=== PATIENT | male | born 1970 | race Caucasian/White ===

== ENCOUNTER 2020-03-04 16:56 | Inpatient (IN) ==
[2020-03-04] MEDS ORDERED: 0.9 % SODIUM CHLORIDE 1,000 ML IV ONE (17:39)
--- NOTE | 2020-03-04 17:53 | Emergency Department Note ---
HPI General Chief complaint: Weakness Stated complaint: weakness, nausea Time Seen by Provider: 03/04/20 17:25 Source: patient Mode of arrival: ambulatory Limitations: no limitations History of Present Illness HPI Narrative: Narrative: 49-year-old male patient presents to the emergency department chief complaint of decreased appetite, nausea, vomiting, generalized weakness 1.5 weeks. Patient expressed to me "I do not think my thyroid meds are working right". Patient is rather medically complex and was seeing a provider in [place] prior to coming up to our area in July of this year. He has no plans of returning. He has not seen a provider in some time. Patient has not had blood work done in quite some time. She does mention a history of both thyroidism and currently does take 200 mg of levothyroxine daily. Patient did not take his blood sugar this morning. However yesterday he tells me that the number was over 250. He has had a 38 pound weight loss since June that was unintentional. ROS: Admits to chills. Denies headaches, tinnitus, or vision changes. Denies runny nose, sinus congestion, or cough. Admits to mild shortness of breath. Admits to smoking up to 1 pack every 2 days since the age of 75 years old Denies retrosternal chest pain or palpitations. Denies abdominal pain, diarrhea, or constipation. Admits to nausea and vomiting x3 today. He mentions the nausea is worse in the morning. He is able to eat more normal meal by dinnertime. Denies dysuria, hematuria, urinary frequency, or urinary urgency. Related Data Home Medications Medication Instructions Recorded Confirmed aspirin 81 mg PO QDAY 03/04/20 03/04/20 atorvastatin 80 mg PO QDAY 03/04/20 03/04/20 cholecalciferol (vitamin D3) 50 mcg PO QDAY 03/04/20 03/04/20 [Vitamin D3] clopidogrel [Plavix] 75 mg PO QDAY 03/04/20 03/04/20 fludrocortisone 0.2 mg PO QDAY 03/04/20 03/04/20 gabapentin 400 mg PO TID 03/04/20 03/04/20 levothyroxine 200 mcg PO QDAY 03/04/20 03/04/20 midodrine 10 mg PO TID 03/04/20 03/04/20 potassium chloride 10 meq PO QDAY 03/04/20 03/04/20 Allergies Allergy/AdvReac Type Severity Reaction Status Date / Time phenytoin [From Dilantin] Allergy Severe Other Verified 03/04/20 17:01 Review of Systems ROS ROS Narrative: Narrative: All systems ED: reviewed and negative except as stated. [facility] Narrative Patient History Narrative: Narrative: Medical/Surgical/Family History All Active Problems (Updated 03/04/20 @ 22:11 by Alexandre Henao PA-C) DKA (diabetic ketoacidoses) (Acute) Anemia (Acute) Hypothyroidism (Acute) Hypotension (Acute) Type 2 diabetes mellitus (Acute) Medical History CVA (cerebral vascular accident) (Acute ~11/2018) Hypotension (Acute) Myocardial infarction (Acute ~04/2018) Type 2 diabetes mellitus (Acute) Currently takes Humalog 70/30 insulin, 50 units twice daily. Unresponsive episode (Acute ~12/2018) Social History Smoking Status: Current every day smoker (Has been smoking since 5 years old.) Exam Narrative Narrative: Narrative: General Limitations: no limitations General appearance: Present other (Well-developed, thin, chronically ill- appearing 49-year-old male patient laying semirecumbent on the emergency room gurney in no acute respiratory distress. He is speaking in complete sentences. No nasal flaring. No accessory muscle use.) Head Head: Present normocephalic Eye Eye: Present normal appearance, PERRL and EOMI; Absent scleral icterus and conjunctival injection ENT ENT: Present normal oropharynx and mucous membranes moist Neck Neck: Present trachea midline; Absent lymphadenopathy and thyromegaly Chest Chest: Present symmetric chest wall rise Respiratory Respiratory: Present prolonged expiratory phase and decreased breath sounds (Decreased breath sounds heard throughout the chest. No adventitious wheezing or rhonchi heard.); Absent normal lung sounds bilaterally, respiratory distress, rales/crackles, wheezes, stridor and accessory muscle use Cardiovascular Cardiovascular: Present regular rate and normal rhythm; Absent systolic murmur and diastolic murmur Adbominal Abdominal: Present soft and normal bowel sounds; Absent distention, tenderness, guarding, rebound, rigidity, organomegaly and mass Extremities Extremities: Present normal inspection and full ROM; Absent normal capillary refill (Less than 3 seconds.) and pedal edema Back Back: Present normal inspection and full ROM; Absent CVA tenderness (R) and CVA tenderness (L) Neurological Neurological: Present alert, oriented X3, CN II-XII intact, normal gait and reflexes normal; Absent motor sensory deficit Psychiatric Psychiatric: Present normal affect and normal mood Skin Skin: Present warm (WNL), dry and normal color Course Course Course Narrative: The differential diagnosis of acute weakness in the adult patient is rather extensive and can be broken down into the following categories : Life-threatening central causes of unilateral weakness: Ischemic stroke, intracerebral hemorrhage, subarachnoid hemorrhage. Other life-threatening causes of bilateral weakness: Brainstem stroke, spinal cord diseases, peripheral nerve diseases (Guillain-Briscoe syndrome), myasthenia gravis, botulism, alcoholic myopathy. Life-threatening medical causes: Hypoglycemia and electrolyte disorders (pot assium, calcium, and magnesium). Life-threatening causes of generalized weakness: Sepsis, ACS, CO2 poisoning, adrenal insufficiency. Other neurologic causes: Multiple sclerosis, hemiplegic migraine, and postictal paralysis. Other medical causes of generalized weakness: Hypothyroidism, infections, anemia, dehydration, presyncope, multiple medications (beta-blockers, diuretics, chemotherapy, opioids, and alcohol), and rheumatologic diseases. Patient is rather medically complex and is not been followed by a medical provider in some time. He is in the emergency department now with a vague com plaint of nausea vomiting and weakness. He is afebrile but mildly tachycardic at 103 heart rate. His blood pressures 108/79. His SPO2 is 99% on room air. He is not septic appearing nor does he meet SIRS criteria. We are going to order some screening laboratory studies including a TSH and a beta hydroxybutyrate. I am going to provide him normal saline 1000 mL as a bolus. Reevaluation(s) Reevaluation #1: Review of his diagnostics thus far show CBC WBC 2.3, RBC 2.18, hemoglobin 7.4, hematocrit 22.7, MCV 104.1, platelets 143. Lactic acid 0.7. Beta hydroxybutyrate 5.55. TSH 7.53. Procalcitonin 0.02. UA pending. C hemistry panel pending. Two-view chest x-ray no acute pulmonary infiltrates. Time: 21:00 Reevaluation #2: Chemistry panel sodium 131, CO2 8, creatinine 0.5, glucose 260, all others normal limits. Urinalysis pending. At this time it is now at shift change and have given full patient reports my collaborative physician (Dr. Nuno medrano). This time the plan is to admit the patient to the hospital for DKA and its associated complications. All further treatment decisions, modalities and ultimate patient disposition will be carried out by Dr. Renee. Time: 22:09 Vital Signs Vital signs: Vital Signs Pulse Rate 103 H 03/04/20 16:57 Respiratory Rate 18 03/04/20 16:57 Blood Pressure 108/79 03/04/20 16:57 Pulse Oximetry (%) 99 03/04/20 16:57 Pulse Rate 79 03/04/20 20:47 Respiratory Rate 16 03/04/20 20:47 Blood Pressure 119/76 03/04/20 20:46 Pulse Oximetry (%) 100 03/04/20 20:47 MDM MDM Narrative Medical decision making narrative: Narrative: Lab Data Lab results reviewed: Yes I reviewed the patient's lab results. Result diagrams: 03/04/20 19:00 03/04/20 19:00 Labs: Lab Results 03/04/20 03/04/20 03/04/20 Range/Units 19:00 19:00 19:00 WBC 2.3 L (4.5-11.0) K/mcL RBC 2.18 L (4.50-5.90) M/mcL Hgb 7.4 L (13.5-16.5) g/dL Hct 22.7 L (41.0-55.0) % MCV 104.1 H (80.0-100.0) fL MCH 33.9 (26.0-34.0) pg MCHC 32.6 (31.0-36.0) g/dL RDW 12.9 (11.5-14.5) % Plt Count 143 (140-440) K/mcL MPV 9.7 (7.4-10.4) fL Neut % (Auto) 57.1 (38.0-78.0) % Lymph % (Auto) 27.7 (15.0-49.0) % [place] % (Auto) 13.0 H (1.0-12.0) % Eos % (Auto) 1.3 (0.0-7.0) % Baso % (Auto) 0.9 (0.0-2.0) % Lymph # (Auto) 0.64 L (1.50-4.80) K/mcL [place] # (Auto) 0.30 (0.10-0.90) K/mcL Eos # (Auto) 0.03 (0.00-0.70) K/mcL Baso # (Auto) 0.02 (0.00-0.20) K/mcL Absolute Neutrophils 1.32 L (1.80-8.00) K/mcL VBG Lactic Acid 0.7 (0.5-2.0) mmol/L Beta-Hydroxybutyrate 5.55 H (<0.27) mmol/L Procalcitonin (<0.10) ng/mL TSH 7.53 H (0.27-5.01) uIU/mL 03/04/20 Range/Units 19:00 WBC (4.5-11.0) K/mcL RBC (4.50-5.90) M/mcL Hgb (13.5-16.5) g/dL Hct (41.0-55.0) % MCV (80.0-100.0) fL MCH (26.0-34.0) pg MCHC (31.0-36.0) g/dL RDW (11.5-14.5) % Plt Count (140-440) K/mcL MPV (7.4-10.4) fL Neut % (Auto) (38.0-78.0) % Lymph % (Auto) (15.0-49.0) % [place] % (Auto) (1.0-12.0) % Eos % (Auto) (0.0-7.0) % Baso % (Auto) (0.0-2.0) % Lymph # (Auto) (1.50-4.80) K/mcL [place] # (Auto) (0.10-0.90) K/mcL Eos # (Auto) (0.00-0.70) K/mcL Baso # (Auto) (0.00-0.20) K/mcL Absolute Neutrophils (1.80-8.00) K/mcL VBG Lactic Acid (0.5-2.0) mmol/L Beta-Hydroxybutyrate (<0.27) mmol/L Procalcitonin 0.02 (<0.10) ng/mL TSH (0.27-5.01) uIU/mL Radiology Data Radiology results reviewed: Yes I reviewed the patient's radiology results. Radiology results narrative: 2 view chest x-ray showing no acute pulmonary infiltrates. This will be over read by radiologist next 12-24 hours. EKG Data EKG #1: EKG results narrative: Lead EKG obtained showing sinus rhythm at a rate of 89. Normal intervals. No ectopy. There is early repolarization pattern noted. Discharge Plan Patient/Caregiver Discharge Instructions Pt seen by HORTICULTURE TEACHER/PA only: Yes Clinical Impression: DKA (diabetic ketoacidoses), Anemia, Hypothyroidism Patient Disposition: Still a Patient Condition: Fair Follow up with: No,PCP [Primary Care Provider] - Prescriptions: No Action atorvastatin 80 mg Tablet 80 mg PO QDAY RF: 0 potassium chloride 10 mEq Capsule, Extended Release 10 meq PO QDAY RF: 0 gabapentin 400 mg Capsule 400 mg PO TID RF: 0 clopidogrel [Plavix] 75 mg Tablet 75 mg PO QDAY RF: 0 aspirin 81 mg Tablet,Delayed Release (Dr/Ec) 81 mg PO QDAY RF: 0 fludrocortisone 0.1 mg Tablet 0.2 mg PO QDAY RF: 0 midodrine 10 mg Tablet 10 mg PO TID RF: 0 cholecalciferol (vitamin D3) [Vitamin D3] 50 mcg (2,000 unit) Capsule 50 mcg PO QDAY RF: 0 levothyroxine 200 mcg Capsule 200 mcg PO QDAY RF: 0
[2020-03-04 20:04] LABS: Basophils # (Auto) 0.02 K/mcL (0.00-0.20); Basophils % (Auto) 0.9 % (0.0-2.0); Eosinophils # (Auto) 0.03 K/mcL (0.00-0.70); Eosinophils % (Auto) 1.3 % (0.0-7.0); Hematocrit 22.7 % (41.0-55.0); Hemoglobin 7.4 g/dL (13.5-16.5); Lymphocytes # (Auto) 0.64 K/mcL (1.50-4.80); Lymphocytes % (Auto) 27.7 % (15.0-49.0); Mean Cell Volume 104.1 fL (80.0-100.0); Mean Corpuscular HGB Conc 32.6 g/dL (31.0-36.0); Mean Platelet Volume 9.7 fL (7.4-10.4); Neutrophils % (Auto) 57.1 % (38.0-78.0); Platelet Count 143 K/mcL (140-440); RBC 2.18 M/mcL (4.50-5.90); Red Cell Distribution Width 12.9 % (11.5-14.5); WBC 2.3 K/mcL (4.5-11.0)
[2020-03-04 20:36] LABS: Beta Hydroxybutyrate 5.55 mmol/L (<0.27)
[2020-03-04 20:42] LABS: Thyroid Stimulating Hormone 7.53 uIU/mL (0.27-5.01)
[2020-03-04 21:24] LABS: POC Blood Urea Nitrogen 17 mg/dL (6-20); POC CO2 8 mmol/L (22-30); POC Calcium, Ionized 1.17 mmEq/L (1.16-1.32); POC Chloride 106 mEq/L (96-108); POC Creatinine 0.5 mg/dL (0.6-1.2); POC Glucose, Random 360 mg/dL (70-105); POC Hematocrit 45 % (41-55); POC Potassium 4.5 mEql/L (3.3-5.1); POC Sodium 131 mEq/L (133-145)
[2020-03-04] MEDS ORDERED: INSULIN REGULAR, HUMAN 1 UNIT/0.01 ML UNIT SQ ONE (21:35)
[2020-03-04] MEDS ORDERED: INSULIN REGULAR, HUMAN 50 UNIT in 0.9 % SODIUM CHLORIDE 99.5 ML IV SCH (21:45)
[2020-03-04] MEDS ORDERED: INSULIN REGULAR, HUMAN 1 UNIT/0.01 ML UNIT ONE (21:52)
--- NOTE | 2020-03-04 22:22 | Internal Med History&Physical ---
HPI History of Present Illness Patient information: Note initiated : 03/04/20 at 10:21 pm Service Date, if different from initiated Date: [] Patient: Clovis Ureña a 49 y/o M admitted on for weakness, nausea. Chief Complaint: [] History of present illness: Mr. Ureña is a 49 year old M with a known history of diabetes/recurrent DKA/CAD/HTN and neuropathy who presented to the ER with increasing weakness, tremors, weight loss, fatigue and lack of appetite. Patient also complains of polyuria and polydipsia. He endorses his blood sugars has not been in good control as he has not been able to establish with a primary care physician. He last seen a physician at [place] however after he moved to [facility] in July he has not been able to return to [place] due to COVID-19. He currently lives with his mother. Initial evaluation in the ER work-up was consistent with DKA with a pH of 7.17/bicarb 8 and elevated blood sugar/ketones. Patient was promptly started on insulin drip along with crystalloids. Subsequently hospitalist service was consulted At the time of my evaluation patient is alert but very anxious fidgety. He was able to endorse history as above. Denies bloody stool, fever, recent sick contacts, cough or dysuria. is also concerned about his thyroid status and feels that DKA was precipitated once his thyroid starts acting up. Work-up today revealed TSH 7.53 review of systems A 10 point review system was performed and is negative except for ones discussed above PFSH PFSH All Active Problems (Updated 03/04/20 @ 22:11 by Alexandre Henao PA-C) DKA (diabetic ketoacidoses) (Acute) Anemia (Acute) Hypothyroidism (Acute) Hypotension (Acute) Type 2 diabetes mellitus (Acute) Medical History CVA (cerebral vascular accident) (Acute ~11/2018) Hypotension (Acute) Myocardial infarction (Acute ~04/2018) Type 2 diabetes mellitus (Acute) Currently takes Humalog 70/30 insulin, 50 units twice daily. Unresponsive episode (Acute ~12/2018) Social History smoking status: Current every day smoker MEDS/ALLERGIES Home Medications and Allergies Home Medications Medication Instructions Recorded Confirmed Type aspirin 81 mg PO QDAY 03/04/20 03/05/20 History atorvastatin 80 mg PO QDAY 03/04/20 03/05/20 History cholecalciferol (vitamin D3) 50 mcg PO QDAY 03/04/20 03/05/20 History [Vitamin D3] clopidogrel [Plavix] 75 mg PO QDAY 03/04/20 03/05/20 History fludrocortisone 0.2 mg PO QDAY 03/04/20 03/05/20 History gabapentin 400 mg PO BID 03/04/20 03/05/20 History levothyroxine 200 mcg PO QDAY 03/04/20 03/05/20 History midodrine 10 mg PO TID 03/04/20 03/05/20 History potassium chloride 10 meq PO QDAY 03/04/20 03/05/20 History blood-glucose meter [Blood Glucose 03/05/20 03/05/20 History Monitoring] gabapentin 800 mg PO QHS 03/05/20 03/05/20 History insulin NPH and regular human 50 unit SUBCUT BID 03/05/20 03/05/20 History [Humulin 70/30 U-100 Insulin] Allergies Allergy/AdvReac Type Severity Reaction Status Date / Time phenytoin [From Dilantin] AdvReac Severe Unresponsiv Verified 03/05/20 07:25 e EXAM Constitutional Vitals: Pulse Resp BP Pulse Ox 85 19 104/72 100 03/04/20 21:28 03/04/20 21:28 03/04/20 21:28 03/04/20 21:28 Very anxious fidgety Thin individual with BMI of 17 Head normocephalic Oral cavity moist No ear nose discharge Eye movement symmetrical without nystagmus Neck supple no lymphadenopathy S1-S2 tachycardia Nonlabored breathing Scaphoid nondistended nontender abdomen Lower extremity no cyanosis clubbing or joint swelling Skin no suspicious lesion Psych anxious but alert cooperative Neuro normal higher function DATA Data Completed and Pending Labs: Labs from last 24 hours 03/04/20 03/04/20 03/04/20 21:00 19:54 19:00 WBC RBC Hgb Hct POC Hct 45 MCV MCH MCHC RDW Plt Count MPV Neut % (Auto) Lymph % (Auto) [place] % (Auto) Eos % (Auto) Baso % (Auto) Lymph # (Auto) [place] # (Auto) Eos # (Auto) Baso # (Auto) Absolute Neutrophils VBG Lactic Acid POC Sodium 131 L Sodium POC Potassium 4.5 Potassium POC Chloride 106 Chloride Carbon Dioxide POC Total CO2 8 L* Anion Gap POC BUN 17 BUN Creatinine POC Creatinine 0.5 L GFR Calculation Glucose POC Glucose 360 H Calcium POC WB Ioniz Calcium 1.17 Total Bilirubin AST ALT Alkaline Phosphatase Total Protein Albumin Globulin Albumin/Globulin Ratio Beta-Hydroxybutyrate Procalcitonin 0.02 TSH Urine Color Pending Urine Appearance Pending Urine pH Pending Ur Specific [place] Pending Urine Protein Pending Urine Glucose (UA) Pending Urine Ketones Pending Urine Occult Blood Pending Urine Nitrate Pending Urine Bilirubin Pending Urine Urobilinogen Pending Ur Leukocyte Esterase Pending 03/04/20 03/04/20 03/04/20 19:00 19:00 19:00 WBC 2.3 L RBC 2.18 L Hgb 7.4 L Hct 22.7 L POC Hct MCV 104.1 H MCH 33.9 MCHC 32.6 RDW 12.9 Plt Count 143 MPV 9.7 Neut % (Auto) 57.1 Lymph % (Auto) 27.7 [place] % (Auto) 13.0 H Eos % (Auto) 1.3 Baso % (Auto) 0.9 Lymph # (Auto) 0.64 L [place] # (Auto) 0.30 Eos # (Auto) 0.03 Baso # (Auto) 0.02 Absolute Neutrophils 1.32 L VBG Lactic Acid 0.7 POC Sodium Sodium POC Potassium Potassium POC Chloride Chloride Carbon Dioxide POC Total CO2 Anion Gap POC BUN BUN Creatinine POC Creatinine GFR Calculation Glucose POC Glucose Calcium POC WB Ioniz Calcium Total Bilirubin AST ALT Alkaline Phosphatase Total Protein Albumin Globulin Albumin/Globulin Ratio Beta-Hydroxybutyrate 5.55 H Procalcitonin TSH 7.53 H Urine Color Urine Appearance Urine pH Ur Specific [place] Urine Protein Urine Glucose (UA) Urine Ketones Urine Occult Blood Urine Nitrate Urine Bilirubin Urine Urobilinogen Ur Leukocyte Esterase 03/04/20 19:00 WBC RBC Hgb Hct POC Hct MCV MCH MCHC RDW Plt Count MPV Neut % (Auto) Lymph % (Auto) [place] % (Auto) Eos % (Auto) Baso % (Auto) Lymph # (Auto) [place] # (Auto) Eos # (Auto) Baso # (Auto) Absolute Neutrophils VBG Lactic Acid POC Sodium Sodium Pending POC Potassium Potassium Pending POC Chloride Chloride Pending Carbon Dioxide Pending POC Total CO2 Anion Gap Pending POC BUN BUN Pending Creatinine Pending POC Creatinine GFR Calculation Pending Glucose Pending POC Glucose Calcium Pending POC WB Ioniz Calcium Total Bilirubin Pending AST Pending ALT Pending Alkaline Phosphatase Pending Total Protein Pending Albumin Pending Globulin Pending Albumin/Globulin Ratio Pending Beta-Hydroxybutyrate Procalcitonin TSH Urine Color Urine Appearance Urine pH Ur Specific [place] Urine Protein Urine Glucose (UA) Urine Ketones Urine Occult Blood Urine Nitrate Urine Bilirubin Urine Urobilinogen Ur Leukocyte Esterase A/P Narrative A/P Narrative: * DKA-initiate management per protocol. Crystalloids/insulin drip/n.p.o./aggressive electrolyte management. Follow serial electrolytes/kandi ous pH * History of CAD on Plavix/statin/aspirin * History of adrenal insufficiency with hypotension currently on fluid cortisone/midodrine * Hypothyroidism on thyroxine * Neuropathy continue gabapentin * Generalized weight loss-nutrition support/work-up * Full code * prophylaxis heparin Plan * Inpatient ICU admission * DKA management protocol * Pre-existing medical condition management on home medications * PT OT/nutrition support * Discharge planning/outpatient PCP follow-up coordination critical care time spent on management of DKA in excess of 25 minutes in addition to time spent on history and physical Time Spent With Patient Time: Total time spent is greater than 50% in coordination of care (as documented) at patient's floor/unit and/or counseling patient:
[2020-03-04 22:30] LABS: Appearance,Urine CLEAR (Clear); Bilirubin,Urine Negative (Negative); Color,Urine YELLOW; Culture Indicated,Urine No; Glucose,Urine (UA) >=500 mg/dL (Negative); Ketones,Urine 80 mg/dL (Negative); Leukocyte Esterase,Urine Negative /ug (Negative); Mucus,Urine FEW /hpf; Nitrate,Urine Negative (Negative); Protein,Urine 100 mg/dL (Negative); Specific Gravity,Urine 1.028 (1.000-1.035); Urine Blood 0.03 mg/dL (Negative); Urine Hyaline Cast 13 /lph (0-2); Urine RBC < 1 /hpf (0-1); Urine Squamous Epithelial Cell 0 /hpf (0-4); Urine WBC < 1 /hpf (0-4); Urobilinogen,Urine Negative
[2020-03-04] MEDS ORDERED: ACETAMINOPHEN 650 MG/65 ML BOTTLE IV PRN (23:30)
[2020-03-04] MEDS ORDERED: ACETAMINOPHEN 325 MG TABLET PO PRN (23:30)
[2020-03-04] MEDS ORDERED: MELATONIN 3 MG TABLET PO PRN (23:30)
[2020-03-04] MEDS ORDERED: POTASSIUM CHLORIDE 40 MEQ in DEXTROSE 5% IN WATER 500 ML IV PRN (23:30)
[2020-03-04] MEDS ORDERED: POTASSIUM CHLORIDE 20 MEQ PACKET PO PRN (23:30)
[2020-03-04] MEDS ORDERED: MAGNESIUM SULFATE 2 GM/50 ML BAG IV PRN (23:30)
[2020-03-04] MEDS ORDERED: BISACODYL 10 MG SUPP.RECT PR PRN (23:30)
[2020-03-04] MEDS ORDERED: ONDANSETRON 4 MG/2 ML VIAL IV PRN (23:30)
[2020-03-04] MEDS ORDERED: ONDANSETRON 4 MG ODT TABLET SL PRN (23:30)
[2020-03-04] MEDS ORDERED: POLYETHYLENE GLYCOL 3350 17 GM PACKET PO PRN (23:30)
[2020-03-04] MEDS: DEXTROSE 5%-1/2NS 1,000 ML IV SCH (23:46)
[2020-03-05 00:45] LABS: ABG Methemoglobin 0.3 % (0.4-1.5); Total Hemoglobin 14.4 gm/Dl (13.5-16.5); VBG HCO3 11.3 mmol/L (24.0-28.0); VBG Oxygen Saturation 76.2 % (40.0-70.0); VBG PCO2 30.6 mmHg (41.0-51.0); VBG PH 7.19 U (7.32-7.42); VBG Total CO2 12.3 mmol/L (25.0-29.0)
--- NOTE | 2020-03-05 02:34 | XRay Report ---
CLINICAL INFORMATION: correction smoker, Mild SOB, N/V COMPARISON: None. FINDINGS: Heart size, mediastinum and pulmonary vessels are unremarkable. The lung volumes are elevated compatible with COPD. No infiltrates appreciated. Few small dense calcified granulomas in the perihilar regions. No effusions. Bones soft tissues normal IMPRESSION: COPD changes. No acute disease Interpreted and Authenticated by: Stefan Russo 03/05/20
[2020-03-05] MEDS ORDERED: INSULIN REGULAR, HUMAN 1 UNIT/0.01 ML UNIT ONE (03:15)
[2020-03-05] MEDS: INSULIN REGULAR, HUMAN 50 UNIT in 0.9 % SODIUM CHLORIDE 99.5 ML IV SCH ×2 (03:26→16:57)
[2020-03-05] MEDS: 0.9 % SODIUM CHLORIDE 10 ML SYRINGE IV SCH ×3 (05:05→20:58)
[2020-03-05] MEDS ORDERED: DEXTROSE 50% 50 ML VIAL IV PRN (05:56)
[2020-03-05 06:04] LABS: ABG Methemoglobin 0.3 % (0.4-1.5); Total Hemoglobin 12.7 gm/Dl (13.5-16.5); VBG HCO3 15.7 mmol/L (24.0-28.0); VBG PCO2 26.1 mmHg (41.0-51.0); VBG PH 7.4 U (7.32-7.42); VBG Total CO2 16.5 mmol/L (25.0-29.0)
[2020-03-05] MEDS ORDERED: DEXTROSE 50% 50 ML VIAL IV ONE (06:04)
[2020-03-05] MEDS: LEVOTHYROXINE 100 MCG TABLET PO SCH (07:49)
[2020-03-05 09:31] LABS: ABG Methemoglobin 0.3 % (0.4-1.5); Total Hemoglobin 12.3 gm/Dl (13.5-16.5); VBG HCO3 17.2 mmol/L (24.0-28.0); VBG PCO2 29.1 mmHg (41.0-51.0); VBG PH 7.39 U (7.32-7.42); VBG Total CO2 18.1 mmol/L (25.0-29.0)
[2020-03-05 09:31] LABS: Eosinophils % (Manual) 2 % (0-7); Hematocrit 36.2 % (41.0-55.0); Hemoglobin 13.4 g/dL (13.5-16.5); Lymphocytes % 34 % (15-49); Mean Cell Volume 90.7 fL (80.0-100.0); Mean Platelet Volume 10.1 fL (7.4-10.4); Monocytes % (Manual) 12 % (1-12); Platelet Count 297 K/mcL (140-440); Platelet Estimate NORMAL (Normal); RBC 3.99 M/mcL (4.50-5.90); RBC Morphology NORMAL (Normal); Red Cell Distribution Width 12.5 % (11.5-14.5); Segmented Neutrophils % 52 % (38-78); WBC 5.3 K/mcL (4.5-11.0)
--- NOTE | 2020-03-05 10:40 | Internal Med Progress Note ---
SUBJECTIVE Subjective Patient information: Note initiated : 03/05/20 at 10:36 am Service Date, if different from initiated Date: [] Patient: Clovis Ureña a 49 y/o M admitted on 03/04/20 for weakness, nausea. Chief Complaint: History of present illness: Mr. Ureña is a 49 year old M with a known history of diabetes/recurrent DKA/CAD/HTN and neuropathy who presented to the ER with increasing weakness, tremors, weight loss, fatigue and lack of appetite. Patient also complains of polyuria and polydipsia. He endorses his blood sugars has not been in good control as he has not been able to establish with a primary care physician. He last seen a physician at [place] however after he moved to [facility] in July he has not been able to return to [place] due to COVID-19. He currently lives with his mother. Initial evaluation in the ER work-up was consistent with DKA with a pH of 7. 17/bicarb 8 and elevated blood sugar/ketones. Patient was promptly started on insulin drip along with crystalloids. Subsequently hospitalist service was consulted At the time of my evaluation patient is alert but very anxious fidgety. He was able to endorse history as above. Denies bloody stool, fever, recent sick contacts, cough or dysuria. is also concerned about his thyroid status and fe els that DKA was precipitated once his thyroid starts acting up. Work-up today revealed TSH 7.53 03/05-patient doing well. pH normalized. Continue insulin drip. Improving anion gap. Remains NPO. Continue management per DKA protocol. Patient remains fairly anxious Constitutional Vitals: Vital Signs Temp Pulse Resp BP Pulse Ox 98.9 F 82 14 94/62 97 03/05/20 08:01 03/05/20 04:01 03/05/20 08:16 03/05/20 08:01 03/05/20 08:16 Period Temp Pulse Resp BP Sys/Hernandez Pulse Ox Last 24 Hr 97.9 F-98.9 F 73-112 14-22 79-139/54-92 95-100 Intake and Output 03/04/20 03/05/20 03/05/20 21:59 05:59 13:59 Intake Total 1000 94 Output Total 400 Balance 1000 -306 Weight 63.503 kg 65.408 kg Alert oriented Anxious Nonlabored breathing No telemetry events Intake & Output: Intake & Output 03/04/20 03/05/20 03/05/20 21:59 05:59 13:59 Intake Total 1000 94 Output Total 400 Balance 1000 -306 Weight 63.503 kg 65.408 kg Intake: IV 1000 94 Sodium Chloride 0.9% 1,000 ml @ 1000 Wide Open IV BOLUS ONE Rx#: [id number] HumuLIN R 50 UNIT In Sodium 94 Chloride 0.9% 99.5 ml @ 7 UNIT/ HR 14 mls/hr IV DUR SANTY Rx#: [id number] Output: Void Amount 400 Other: Urine Appearance Clear Urine Color Dark Yellow OBJ DATA Labs CBC & Chem 7: 03/05/20 03:30 03/05/20 03:30 Labs: Abnormal Lab Results 03/05/20 03/05/20 03/05/20 07:28 03:30 03:30 WBC RBC 3.99 L Hgb 13.4 L Hct 36.2 L MCV MCHC 37.0 H [place] % (Auto) Lymph # (Auto) Absolute Neutrophils ABG Methemoglobin 0.3 L 0.3 L VBG pH VBG pCO2 29.1 L 26.1 L VBG pO2 134 H 167 H VBG HCO3 17.2 L 15.7 L VBG Total CO2 18.1 L 16.5 L VBG O2 Saturation 94.0 H 92.0 H VBG Base Excess -7 L -8 L Carboxyhemoglobin 4.2 H 6.5 H Total Hemoglobin 12.3 L 12.7 L POC Sodium POC Total CO2 POC Creatinine POC Glucose Beta-Hydroxybutyrate TSH Urine Protein Urine Glucose (UA) Urine Ketones Hyaline Casts Urine Mucus 03/04/20 03/04/20 03/04/20 23:30 21:00 19:54 WBC RBC Hgb Hct MCV MCHC [place] % (Auto) Lymph # (Auto) Absolute Neutrophils ABG Methemoglobin 0.3 L VBG pH 7.19 L* VBG pCO2 30.6 L VBG pO2 47 H VBG HCO3 11.3 L VBG Total CO2 12.3 L VBG O2 Saturation 76.2 H VBG Base Excess -16 L Carboxyhemoglobin 5.4 H Total Hemoglobin POC Sodium 131 L POC Total CO2 8 L* POC Creatinine 0.5 L POC Glucose 360 H Beta-Hydroxybutyrate TSH Urine Protein 100 A Urine Glucose (UA) >=500 A Urine Ketones 80 A Hyaline Casts 13 H Urine Mucus Few A 03/04/20 03/04/20 19:00 19:00 WBC 2.3 L RBC 2.18 L Hgb 7.4 L Hct 22.7 L MCV 104.1 H MCHC [place] % (Auto) 13.0 H Lymph # (Auto) 0.64 L Absolute Neutrophils 1.32 L ABG Methemoglobin VBG pH VBG pCO2 VBG pO2 VBG HCO3 VBG Total CO2 VBG O2 Saturation VBG Base Excess Carboxyhemoglobin Total Hemoglobin POC Sodium POC Total CO2 POC Creatinine POC Glucose Beta-Hydroxybutyrate 5.55 H TSH 7.53 H Urine Protein Urine Glucose (UA) Urine Ketones Hyaline Casts Urine Mucus Meds: Medications Acetaminophen (Tylenol) 650 mg PO Q4-6HP PRN; Protocol PRN Reason: Per Pain Protocol/Fever > 101 Aspirin (Aspirin) 81 mg PO QDAY [facility] Atorvastatin Calcium (Lipitor) 80 mg PO QDAY [facility] Bisacodyl (Dulcolax) 10 mg [place] Q2-3DAYS PRN PRN Reason: Constipation Clopidogrel Bisulfate (Plavix) 75 mg PO QDAY [facility] Cyanocobalamin (Vitamin B-12) 1,000 mcg PO BID SANTY Stop: 03/09/20 21:01 Dextrose (Dextrose 50%) 25 ml IV PRN PRN PRN Reason: Hypoglycemia Diagnostic Test (Pha) (Accu-Chek) 1 each FS Q1 SANTY Last Admin: 03/05/20 08:00 Dose: 1 each Documented by: Docusate Sodium (Colace) 100 mg PO BID [facility] Fludrocortisone Acetate (Florinef) 0.2 mg PO QDAY [facility] Gabapentin (Neurontin) 400 mg PO TID [facility] Heparin Sodium (Porcine) (Heparin) 5,000 unit SQ Q12 SANTY Insulin Human Regular 50 unit/ (Sodium Chloride) 100 mls @ 14 mls/hr IV DUR SANTY; Protocol Last Titration: 03/05/20 05:53 Dose: 1 unit/hr, 2 mls/hr Documented by: Potassium Chloride 40 meq/ (Dextrose) 520 mls @ 130 mls/hr IV UD PRN PRN Reason: K+ = or < 3.5 Dextrose/Sodium Chloride (Dextrose 5%-1/2ns Iv Solution) 1,000 mls @ 100 mls/hr IV .Q10H SANTY Last Admin: 03/04/20 23:46 Dose: 100 mls/hr Documented by: Acetaminophen (Ofirmev) 650 mg in 65 mls @ 130 mls/hr IV Q6HP PRN; Protocol PRN Reason: Per Pain Protocol/Fever > 101 Magnesium Sulfate (Magnesium Sulfate) 2 gm in 50 mls @ 50 mls/hr IV UD PRN PRN Reason: MG = or < 1.7 Iron Carb/Multivit/[place]/Folic Acid (Multivitamin W/Minerals) 1 tab PO DAILY [facility] Levothyroxine Sodium (Synthroid) 200 mcg PO ACB [facility] Last Admin: 03/05/20 07:49 Dose: 200 mcg Documented by: Melatonin (Melatonin 3mg Tablet) 3 mg PO HSP PRN PRN Reason: Insomnia Midodrine (Midodrine Hcl) 10 mg PO TID@0800,1200,1700 [facility] Ondansetron HCl (Zofran Odt) 4 mg SL Q4-6HP PRN; Protocol PRN Reason: Nausea And Vomiting Ondansetron HCl (Zofran) 4 mg IV Q4-6HP PRN; Protocol PRN Reason: Nausea And Vomiting Pneumococcal Polyvalent Vaccine (Pneumovax 23) 0.5 ml IM .ONCE ONE Stop: 03/06/20 10:01 Polyethylene Glycol (Miralax) 17 gm PO DAILYP PRN PRN Reason: Constipation Potassium Chloride (Kdur) 10 meq PO QAMCC [facility] Potassium Chloride (Klor-Con) 40 meq PO DAILYP PRN PRN Reason: K+ < 3.5 Senna/Docusate Sodium (Senna Plus Tablet) 1 tab PO HS [facility] Sodium Chloride (Saline Flush) 10 ml IV Q8 [facility] Last Admin: 03/05/20 05:05 Dose: Not Given Documented by: Thiamine HCl (Vitamin B1) 100 mg PO DAILY [facility] ABG Interpretation ABG results: 03/04/20 03/05/20 03/05/20 23:30 03:30 07:28 ABG Methemoglobin 0.3 L 0.3 L 0.3 L VBG pH 7.19 L* 7.40 7.39 VBG pCO2 30.6 L 26.1 L 29.1 L VBG pO2 47 H 167 H 134 H VBG HCO3 11.3 L 15.7 L 17.2 L VBG Total CO2 12.3 L 16.5 L 18.1 L VBG O2 Saturation 76.2 H 92.0 H 94.0 H VBG Base Excess -16 L -8 L -7 L A/P Narrative A/P Narrative: * DKA-clinical improvement noted with continued management per protocol. On crystalloids/insulin drip/n.p.o./aggressive electrolyte management. * History of CAD continue on home dose Plavix/statin/aspirin * History of adrenal insufficiency with hypotension currently on fludr ocortisone/midodrine * Hypothyroidism on thyroxine * Neuropathy continue gabapentin * Generalized weight loss-nutrition support * Full code * prophylaxis heparin Plan * DKA management per protocol * Electrolyte replacement * PT OT/nutrition support * Pre-existing medical condition management home meds * Discharge planning/outpatient PCP follow-up coordination critical care time spent on management of DKA in excess of 35 minutes Time Spent With Patient Time: Total time spent is greater than 50% in coordination of care (as doc umented) at patient's floor/unit and/or counseling patient: QUALITY VTE Deep Vein Thrombosis/Pulmonary Embolism Present on Admission: No
[2020-03-05 10:47] LABS: POC Blood Urea Nitrogen 13 mg/dL (6-20); POC CO2 18 mmol/L (22-30); POC Calcium, Ionized 1.28 mmEq/L (1.16-1.32); POC Chloride 107 mEq/L (96-108); POC Creatinine 0.5 mg/dL (0.6-1.2); POC Glucose, Random 114 mg/dL (70-105); POC Hematocrit 37 % (41-55); POC Potassium 3.2 mEql/L (3.3-5.1); POC Sodium 137 mEq/L (133-145)
[2020-03-05] MEDS: MULTIVIT,THER IRON,CA,FA & MIN 1 TABLET PO SCH (12:05)
[2020-03-05] MEDS: HEPARIN 5,000 UNIT/ML VIAL SQ SCH ×2 (12:05→20:58)
[2020-03-05] MEDS: ATORVASTATIN 40 MG TABLET PO SCH (12:06)
[2020-03-05] MEDS: CYANOCOBALAMIN (VITAMIN B-12) 500 MCG TABLET PO SCH ×2 (12:06→20:58)
[2020-03-05] MEDS: FLUDROCORTISONE 0.1 MG TABLET PO SCH (12:06)
[2020-03-05] MEDS: POTASSIUM CHLORIDE 10 MEQ TABLET PO SCH (12:06)
[2020-03-05] MEDS: MIDODRINE 5 MG TABLET PO SCH ×3 (12:06→16:47)
[2020-03-05] MEDS: ASPIRIN 81 MG TAB.CHEW PO SCH (12:06)
[2020-03-05] MEDS: CLOPIDOGREL 75 MG TABLET PO SCH (12:07)
[2020-03-05] MEDS: THIAMINE 100 MG TABLET PO SCH (12:07)
[2020-03-05] MEDS: DOCUSATE SODIUM 100 MG CAPSULE PO SCH ×2 (12:09→20:58)
[2020-03-05] MEDS: GABAPENTIN 400 MG CAPSULE PO SCH ×3 (12:17→20:57)
[2020-03-05] MEDS: DEXTROSE 5%-1/2NS 1,000 ML IV SCH (12:18)
[2020-03-05 12:36] LABS: ALT/SGPT 15 U/L (<40); AST/SGOT 10 U/L (<40); Albumin 3.7 gm/dL (3.2-5.2); Albumin/Globulin Ratio 1.9 (1.0-2.3); Alkaline Phosphatase 60 U/L (39-117); Bilirubin,Direct < 0.2 mg/dL (<0.3); Bilirubin,Total 0.4 mg/dL (0.1-1.0); Blood Urea Nitrogen 11 mg/dL (6-20); Calcium 9.1 mg/dL (8.6-10.4); Carbon Dioxide 16 mmol/L (22-30); Chloride 107 mmol/L (96-108); Globulin 1.9 gm/dL (2.2-3.7); Glomerular Filtration Rate 98; Glucose 115 mg/dL (70-105); Lactate Dehydrogenase 110 U/L (135-225); Triglycerides 794 mg/dL (<150); Uric Acid 4.8 mg/dL (2.5-8.0)
[2020-03-05 12:39] LABS: Glucose 143 mg/dL (70-105)
[2020-03-05 12:42] LABS: ALT/SGPT 16 U/L (<40); AST/SGOT 8 U/L (<40); Albumin/Globulin Ratio 2.1 (1.0-2.3); Alkaline Phosphatase 66 U/L (39-117); Bilirubin,Direct 0.2 mg/dL (<0.3); Bilirubin,Total 0.3 mg/dL (0.1-1.0); Blood Urea Nitrogen 13 mg/dL (6-20); Calcium 8.6 mg/dL (8.6-10.4); Carbon Dioxide 13 mmol/L (22-30); Chloride 102 mmol/L (96-108); Globulin 1.9 gm/dL (2.2-3.7); Glomerular Filtration Rate 86; Lactate Dehydrogenase 129 U/L (135-225); Phosphorous 0.9 mg/dL (2.5-4.5); Uric Acid 5.6 mg/dL (2.5-8.0)
[2020-03-05 12:43] LABS: Triglycerides 1237 mg/dL (<150)
[2020-03-05] MEDS: 0.9 % SODIUM CHLORIDE 250 ML IV SCH (13:08)
[2020-03-05] MEDS ORDERED: SENNOSIDES/DOCUSATE SODIUM 1 TAB TABLET PO SCH (21:00)
[2020-03-05 21:57] LABS: ALT/SGPT < 5 U/L (<40); AST/SGOT < 5 U/L (<40); Albumin 4.1 gm/dL (3.2-5.2); Albumin/Globulin Ratio 2.2 (1.0-2.3); Alkaline Phosphatase 63 U/L (39-117); Bilirubin,Direct < 0.2 mg/dL (<0.3); Bilirubin,Total 0.3 mg/dL (0.1-1.0); Blood Urea Nitrogen 14 mg/dL (6-20); Calcium 9.1 mg/dL (8.6-10.4); Carbon Dioxide 13 mmol/L (22-30); Chloride 105 mmol/L (96-108); Globulin 1.9 gm/dL (2.2-3.7); Glomerular Filtration Rate 77; Glucose 149 mg/dL (70-105); Lactate Dehydrogenase 139 U/L (135-225); Phosphorous 0.9 mg/dL (2.5-4.5); Triglycerides 1549 mg/dL (<150)
[2020-03-06] MEDS: 0.9 % SODIUM CHLORIDE 250 ML IV SCH (00:28)
[2020-03-06] MEDS: INSULIN REGULAR, HUMAN 50 UNIT in 0.9 % SODIUM CHLORIDE 99.5 ML IV SCH (00:28)
[2020-03-06] MEDS: DEXTROSE 5%-1/2NS 1,000 ML IV SCH ×3 (02:06→13:04)
[2020-03-06] MEDS: 0.9 % SODIUM CHLORIDE 10 ML SYRINGE IV SCH ×3 (05:34→20:46)
--- NOTE | 2020-03-06 06:38 | XRay Report ---
CLINICAL INFORMATION: COPD COMPARISON: None. TECHNIQUE: Multiple FINDINGS: The heart size, mediastinum and pulmonary vessels are unremarkable. COPD changes again noted - lungs are clear. There are no effusions. The bones and soft tissues are within normal limits. IMPRESSION: Stable COPD - no acute disease. Interpreted and Authenticated by: Stefan Russo 03/06/20
[2020-03-06] MEDS: LEVOTHYROXINE 100 MCG TABLET PO SCH (07:14)
[2020-03-06] MEDS: HEPARIN 5,000 UNIT/ML VIAL SQ SCH (08:17)
[2020-03-06] MEDS: CYANOCOBALAMIN (VITAMIN B-12) 500 MCG TABLET PO SCH ×2 (08:18→20:48)
[2020-03-06] MEDS: MIDODRINE 5 MG TABLET PO SCH ×3 (08:18→17:06)
[2020-03-06] MEDS: ASPIRIN 81 MG TAB.CHEW PO SCH (08:18)
[2020-03-06] MEDS: POTASSIUM CHLORIDE 10 MEQ TABLET PO SCH (08:18)
[2020-03-06] MEDS: GABAPENTIN 400 MG CAPSULE PO SCH ×2 (08:18→14:41)
[2020-03-06] MEDS: FLUDROCORTISONE 0.1 MG TABLET PO SCH (08:18)
[2020-03-06] MEDS: DOCUSATE SODIUM 100 MG CAPSULE PO SCH ×2 (08:18→20:46)
[2020-03-06] MEDS: CLOPIDOGREL 75 MG TABLET PO SCH (08:18)
[2020-03-06] MEDS: MULTIVIT,THER IRON,CA,FA & MIN 1 TABLET PO SCH (08:18)
[2020-03-06] MEDS: THIAMINE 100 MG TABLET PO SCH (08:18)
[2020-03-06] MEDS: ATORVASTATIN 40 MG TABLET PO SCH (08:18)
[2020-03-06] MEDS ORDERED: INSULIN 70/30, HUMAN 1 UNIT/0.01 ML UNIT SQ SCH ×2 (09:17→17:00)
[2020-03-06] MEDS ORDERED: INSULIN, 75/25 NPL/LISPRO 1 UNIT/0.01 ML UNIT SQ SCH (09:19)
[2020-03-06] MEDS ORDERED: PNEUMOCOCCAL 23-VAL P-SAC VAC 0.5 ML SYRINGE IM ONE (10:00)
[2020-03-06 10:28] LABS: Eosinophils % (Manual) 6 % (0-7); Hematocrit 34.6 % (41.0-55.0); Hemoglobin 12.7 g/dL (13.5-16.5); Lymphocytes % 34 % (15-49); Mean Cell Volume 89.2 fL (80.0-100.0); Mean Corpuscular HGB Conc 36.7 g/dL (31.0-36.0); Mean Platelet Volume 10.2 fL (7.4-10.4); Monocytes % (Manual) 12 % (1-12); Platelet Count 252 K/mcL (140-440); Platelet Estimate NORMAL (Normal); RBC 3.88 M/mcL (4.50-5.90); RBC Morphology NORMAL (Normal); Red Cell Distribution Width 12.8 % (11.5-14.5); Segmented Neutrophils % 48 % (38-78); WBC 7.1 K/mcL (4.5-11.0)
[2020-03-06 10:29] LABS: ALT/SGPT 13 U/L (<40); AST/SGOT 17 U/L (<40); Albumin 3.5 gm/dL (3.2-5.2); Albumin/Globulin Ratio 2.1 (1.0-2.3); Alkaline Phosphatase 61 U/L (39-117); Bilirubin,Direct < 0.2 mg/dL (<0.3); Bilirubin,Total 0.3 mg/dL (0.1-1.0); Blood Urea Nitrogen 11 mg/dL (6-20); Carbon Dioxide 19 mmol/L (22-30); Chloride 105 mmol/L (96-108); Globulin 1.7 gm/dL (2.2-3.7); Glomerular Filtration Rate 103; Glucose 172 mg/dL (70-105); Lactate Dehydrogenase 133 U/L (135-225); Phosphorous 3.2 mg/dL (2.5-4.5); Triglycerides 362 mg/dL (<150); Uric Acid 3.3 mg/dL (2.5-8.0)
[2020-03-06 10:29] LABS: ALT/SGPT 13 U/L (<40); AST/SGOT 17 U/L (<40); Albumin 3.5 gm/dL (3.2-5.2); Albumin/Globulin Ratio 1.8 (1.0-2.3); Alkaline Phosphatase 68 U/L (39-117); Bilirubin,Direct < 0.2 mg/dL (<0.3); Bilirubin,Total 0.2 mg/dL (0.1-1.0); Blood Urea Nitrogen 12 mg/dL (6-20); Calcium 8.9 mg/dL (8.6-10.4); Carbon Dioxide 19 mmol/L (22-30); Chloride 102 mmol/L (96-108); Globulin 1.9 gm/dL (2.2-3.7); Glomerular Filtration Rate 103; Glucose 159 mg/dL (70-105); Lactate Dehydrogenase 114 U/L (135-225); Phosphorous 2.3 mg/dL (2.5-4.5); Triglycerides 624 mg/dL (<150); Uric Acid 3.7 mg/dL (2.5-8.0)
--- NOTE | 2020-03-06 11:19 | Internal Med Progress Note ---
SUBJECTIVE Subjective Patient information: Note initiated : 03/06/20 at 11:16 am Service Date, if different from initiated Date: [] Patient: Clovis Ureña a 49 y/o M admitted on 03/04/20 for weakness, nausea. Chief Complaint: History of present illness: Mr. Ureña is a 49 year old M with a known history of diabetes/recurrent DKA/CAD/HTN and neuropathy who presented to the ER with increasing weakness, tremors, weight loss, fatigue and lack of appetite. Patient also complains of polyuria and polydipsia. He endorses his blood sugars has not been in good control as he has not been able to establish with a primary care physician. He last seen a physician at [place] however after he moved to [facility] in July he has not been able to return to [place] due to COVID-19. He currently lives with his mother. Initial evaluation in the ER work-up was consistent with DKA with a pH of 7. 17/bicarb 8 and elevated blood sugar/ketones. Patient was promptly started on insulin drip along with crystalloids. Subsequently hospitalist service was consulted At the time of my evaluation patient is alert but very anxious fidgety. He was able to endorse history as above. Denies bloody stool, fever, recent sick contacts, cough or dysuria. is also concerned about his thyroid status and fe els that DKA was precipitated once his thyroid starts acting up. Work-up today revealed TSH 7.53 03/05-patient doing well. pH normalized. Continue insulin drip. Improving anion gap. Remains NPO. Continue management per DKA protocol. Patient remains fairly anxious 03/06-patient overnight on insulin drip at 1.5/h. Blood sugars much improved. Anion gap normalized. Bicarbonate at 19. Electrolytes stable. Transition to CC diet/7030 home dose insulin/Accu-Cheks. Transfer to medical floor. Possibly will discharge in 24 hours however will need outpatient close monitoring and follow-up with PCP which he has been able to do so in the last 6 months. Constitutional Vitals: Vital Signs Temp Pulse Resp BP Pulse Ox 99.2 F H 82 14 87/59 95 03/06/20 08:59 03/05/20 04:01 03/06/20 08:59 03/06/20 08:59 03/06/20 08:59 Period Temp Pulse Resp BP Sys/Hernandez Pulse Ox Last 24 Hr 97.0 F-99.2 F 03-15 80-128/42-75 94-99 Intake and Output 03/05/20 03/06/20 03/06/20 21:59 05:59 13:59 Intake Total 872 1635 880 Output Total 400 1000 Balance 472 635 880 Weight 69.309 kg alert oriented Anxious Nonlabored breathing Ambulating Intake & Output: Intake & Output 03/05/20 03/06/20 03/06/20 21:59 05:59 13:59 Intake Total 872 1635 880 Output Total 400 1000 Balance 472 635 880 Weight 69.309 kg Intake: IV 632 1275 640 Sodium Chloride 0.9% 250 ml @ 227 20 mls/hr IV .[id number] SANTY Rx#: [id number] Dextrose 5%-1/2Ns IV Solution 1 1000 628 ,000 ml @ 100 mls/hr IV .Q10H SANTY Rx#:[id number] HumuLIN R 50 UNIT In Sodium 112 48 12 Chloride 0.9% 99.5 ml @ 7 UNIT/ HR 14 mls/hr IV DUR SANTY Rx#: [id number] Potassium Chloride 40 Meq In 520 Dextrose 5% in Water 500 ml @ 130 mls/hr IV UD PRN Rx#: [id number] Oral 240 360 240 Output: Void Amount 400 1000 Other: Meal Snack Nourishment/Supplement Breakfast Percent of Meal Consumed 100% 100% 100% Feeding Ability Independent Independent Urine Appearance Clear Clear Clear Urine Color Dark Yellow Bright Yellow Bright Yellow OBJ DATA Labs CBC & Chem 7: 03/06/20 05:20 03/06/20 05:20 Labs: Abnormal Lab Results 03/06/20 03/06/20 03/05/20 05:20 05:20 23:00 WBC RBC 3.88 L Hgb 12.7 L Hct 34.6 L POC Hct MCV MCHC 36.7 H [place] % (Auto) Lymph # (Auto) Absolute Neutrophils ABG Methemoglobin VBG pH VBG pCO2 VBG pO2 VBG HCO3 VBG Total CO2 VBG O2 Saturation VBG Base Excess Carboxyhemoglobin Total Hemoglobin POC Sodium Sodium 131 L POC Potassium Carbon Dioxide 19 L 19 L POC Total CO2 Anion Gap POC Creatinine Glucose 172 H 159 H POC Glucose Phosphorus 2.3 L GGT 111 H 72 H Lactate Dehydrogenase 133 L 114 L Total Protein 5.2 L 5.4 L Globulin 1.7 L 1.9 L Triglycerides 362 H 624 H Beta-Hydroxybutyrate TSH Urine Protein Urine Glucose (UA) Urine Ketones Hyaline Casts Urine Mucus 03/05/20 03/05/20 03/05/20 14:27 10:30 10:30 WBC RBC Hgb Hct POC Hct 37 L MCV MCHC [place] % (Auto) Lymph # (Auto) Absolute Neutrophils ABG Methemoglobin VBG pH VBG pCO2 VBG pO2 VBG HCO3 VBG Total CO2 VBG O2 Saturation VBG Base Excess Carboxyhemoglobin Total Hemoglobin POC Sodium Sodium 130 L 132 L POC Potassium 3.2 L Carbon Dioxide 13 L 16 L POC Total CO2 18 L Anion Gap POC Creatinine 0.5 L Glucose 149 H 115 H POC Glucose 114 H Phosphorus 0.9 L 2.0 L GGT Lactate Dehydrogenase 110 L Total Protein 5.6 L Globulin 1.9 L 1.9 L Triglycerides 1549 H 794 H Beta-Hydroxybutyrate TSH Urine Protein Urine Glucose (UA) Urine Ketones Hyaline Casts Urine Mucus 03/05/20 03/05/20 03/05/20 07:28 03:30 03:30 WBC RBC 3.99 L Hgb 13.4 L Hct 36.2 L POC Hct MCV MCHC 37.0 H [place] % (Auto) Lymph # (Auto) Absolute Neutrophils ABG Methemoglobin 0.3 L VBG pH VBG pCO2 29.1 L VBG pO2 134 H VBG HCO3 17.2 L VBG Total CO2 18.1 L VBG O2 Saturation 94.0 H VBG Base Excess -7 L Carboxyhemoglobin 4.2 H Total Hemoglobin 12.3 L POC Sodium Sodium 132 L POC Potassium Carbon Dioxide 13 L POC Total CO2 Anion Gap 17.0 H POC Creatinine Glucose 143 H POC Glucose Phosphorus 0.9 L GGT Lactate Dehydrogenase 129 L Total Protein Globulin 1.9 L Triglycerides 1237 H Beta-Hydroxybutyrate TSH Urine Protein Urine Glucose (UA) Urine Ketones Hyaline Casts Urine Mucus 03/05/20 03/04/20 03/04/20 03:30 23:30 21:00 WBC RBC Hgb Hct POC Hct MCV MCHC [place] % (Auto) Lymph # (Auto) Absolute Neutrophils ABG Methemoglobin 0.3 L 0.3 L VBG pH 7.19 L* VBG pCO2 26.1 L 30.6 L VBG pO2 167 H 47 H VBG HCO3 15.7 L 11.3 L VBG Total CO2 16.5 L 12.3 L VBG O2 Saturation 92.0 H 76.2 H VBG Base Excess -8 L -16 L Carboxyhemoglobin 6.5 H 5.4 H Total Hemoglobin 12.7 L POC Sodium 131 L Sodium POC Potassium Carbon Dioxide POC Total CO2 8 L* Anion Gap POC Creatinine 0.5 L Glucose POC Glucose 360 H Phosphorus GGT Lactate Dehydrogenase Total Protein Globulin Triglycerides Beta-Hydroxybutyrate TSH Urine Protein Urine Glucose (UA) Urine Ketones Hyaline Casts Urine Mucus 03/04/20 03/04/20 03/04/20 19:54 19:00 19:00 WBC 2.3 L RBC 2.18 L Hgb 7.4 L Hct 22.7 L POC Hct MCV 104.1 H MCHC [place] % (Auto) 13.0 H Lymph # (Auto) 0.64 L Absolute Neutrophils 1.32 L ABG Methemoglobin VBG pH VBG pCO2 VBG pO2 VBG HCO3 VBG Total CO2 VBG O2 Saturation VBG Base Excess Carboxyhemoglobin Total Hemoglobin POC Sodium Sodium POC Potassium Carbon Dioxide POC Total CO2 Anion Gap POC Creatinine Glucose POC Glucose Phosphorus GGT Lactate Dehydrogenase Total Protein Globulin Triglycerides Beta-Hydroxybutyrate 5.55 H TSH 7.53 H Urine Protein 100 A Urine Glucose (UA) >=500 A Urine Ketones 80 A Hyaline Casts 13 H Urine Mucus Few A Meds: Medications Acetaminophen (Tylenol) 650 mg PO Q4-6HP PRN; Protocol PRN Reason: Per Pain Protocol/Fever > 101 Aspirin (Aspirin) 81 mg PO QDAY [facility] Last Admin: 03/06/20 08:18 Dose: 81 mg Documented by: Atorvastatin Calcium (Lipitor) 80 mg PO QDAY [facility] Last Admin: 03/06/20 08:18 Dose: 80 mg Documented by: Bisacodyl (Dulcolax) 10 mg [place] Q2-3DAYS PRN PRN Reason: Constipation Clopidogrel Bisulfate (Plavix) 75 mg PO QDAY [facility] Last Admin: 03/06/20 08:18 Dose: 75 mg Documented by: Cyanocobalamin (Vitamin B-12) 1,000 mcg PO BID [facility] Stop: 03/09/20 21:01 Last Admin: 03/06/20 08:18 Dose: 1,000 mcg Documented by: Dextrose (Dextrose 50%) 25 ml IV PRN PRN PRN Reason: Hypoglycemia Last Admin: 03/06/20 02:05 Dose: 25 ml Documented by: Diagnostic Test (Pha) (Accu-Chek) 1 each FS [facility] Docusate Sodium (Colace) 100 mg PO BID [facility] Last Admin: 03/06/20 08:18 Dose: Not Given Documented by: Fludrocortisone Acetate (Florinef) 0.2 mg PO QDAY [facility] Last Admin: 03/06/20 08:18 Dose: 0.2 mg Documented by: Gabapentin (Neurontin) 400 mg PO TID [facility] Last Admin: 03/06/20 08:18 Dose: 400 mg Documented by: Heparin Sodium (Porcine) (Heparin) 5,000 unit SQ Q12 [facility] Last Admin: 03/06/20 08:17 Dose: 5,000 unit Documented by: Potassium Chloride 40 meq/ (Dextrose) 520 mls @ 130 mls/hr IV UD PRN PRN Reason: K+ = or < 3.5 Last Infusion: 03/05/20 16:25 Dose: Infused Documented by: Dextrose/Sodium Chloride (Dextrose 5%-1/2ns Iv Solution) 1,000 mls @ 100 mls/hr IV .Q10H [facility] Last Admin: 03/06/20 08:23 Dose: 100 mls/hr Documented by: Acetaminophen (Ofirmev) 650 mg in 65 mls @ 130 mls/hr IV Q6HP PRN; Protocol PRN Reason: Per Pain Protocol/Fever > 101 Magnesium Sulfate (Magnesium Sulfate) 2 gm in 50 mls @ 50 mls/hr IV UD PRN PRN Reason: MG = or < 1.7 Last Infusion: 03/05/20 13:00 Dose: Infused Documented by: Insulin Human Lispro (Humalog) 0 unit SQ [facility]; Protocol Insulin Lispro Protam/Lispro Human (Humalog 75/25) 50 unit SQ BIDAC [facility] Last Admin: 03/06/20 09:59 Dose: 50 unit Documented by: Iron Carb/Multivit/[place]/Folic Acid (Multivitamin W/Minerals) 1 tab PO DAILY [facility] Last Admin: 03/06/20 08:18 Dose: 1 tab Documented by: Levothyroxine Sodium (Synthroid) 200 mcg PO ACB [facility] Last Admin: 03/06/20 07:14 Dose: 200 mcg Documented by: Melatonin (Melatonin 3mg Tablet) 3 mg PO HSP PRN PRN Reason: Insomnia Midodrine (Midodrine Hcl) 10 mg PO TID@0800,1200,1700 [facility] Last Admin: 03/06/20 08:18 Dose: 10 mg Documented by: Ondansetron HCl (Zofran Odt) 4 mg SL Q4-6HP PRN; Protocol PRN Reason: Nausea And Vomiting Ondansetron HCl (Zofran) 4 mg IV Q4-6HP PRN; Protocol PRN Reason: Nausea And Vomiting Polyethylene Glycol (Miralax) 17 gm PO DAILYP PRN PRN Reason: Constipation Potassium Chloride (Kdur) 10 meq PO QAC [facility] Last Admin: 03/06/20 08:18 Dose: 10 meq Documented by: Potassium Chloride (Klor-Con) 40 meq PO DAILYP PRN PRN Reason: K+ < 3.5 Senna/Docusate Sodium (Senna Plus Tablet) 1 tab PO HS [facility] Last Admin: 03/05/20 20:58 Dose: Not Given Documented by: Sodium Chloride (Saline Flush) 10 ml IV Q8 [facility] Last Admin: 03/06/20 05:34 Dose: Not Given Documented by: Thiamine HCl (Vitamin B1) 100 mg PO DAILY [facility] Last Admin: 03/06/20 08:18 Dose: 100 mg Documented by: ABG Interpretation ABG results: 03/04/20 03/05/20 03/05/20 23:30 03:30 07:28 ABG Methemoglobin 0.3 L 0.3 L 0.3 L VBG pH 7.19 L* 7.40 7.39 VBG pCO2 30.6 L 26.1 L 29.1 L VBG pO2 47 H 167 H 134 H VBG HCO3 11.3 L 15.7 L 17.2 L VBG Total CO2 12.3 L 16.5 L 18.1 L VBG O2 Saturation 76.2 H 92.0 H 94.0 H VBG Base Excess -16 L -8 L -7 L A/P Narrative A/P Narrative: * DKA-clinical improvement noted with continued management per protocol. Off insulin drip now transition to subcu insulin/CC diet. Continue diabetic educ ation. * Hypokalemia on replacement * History of CAD continue on home dose Plavix/statin/aspirin * History of adrenal insufficiency with hypotension currently on fludrocortisone/midodrine * Hypothyroidism on thyroxine * Neuropathy continue gabapentin * Generalized weight loss-nutrition support * Full code * prophylaxis heparin Plan * Transition to medical floor * CC diet/basal prandial insulin * PT OT/nutrition support * Pre-existing medical condition management home meds * Discharge planning/outpatient PCP follow-up coordination likely in 24 hours Time Spent With Patient Time: Total time spent is greater than 50% in coordination of care (as documented) at patient's floor/unit and/or counseling patient: QUALITY VTE Deep Vein Thrombosis/Pulmonary Embolism Present on Admission: No
[2020-03-06] MEDS ORDERED: ACETAMINOPHEN 650 MG/65 ML BOTTLE IV PRN (11:22)
[2020-03-06] MEDS ORDERED: BISACODYL 10 MG SUPP.RECT PR PRN (11:22)
[2020-03-06] MEDS ORDERED: ACETAMINOPHEN 325 MG TABLET PO PRN (11:22)
[2020-03-06] MEDS ORDERED: MELATONIN 3 MG TABLET PO PRN (11:22)
[2020-03-06] MEDS ORDERED: POTASSIUM CHLORIDE 40 MEQ in DEXTROSE 5% IN WATER 500 ML IV PRN (11:22)
[2020-03-06] MEDS ORDERED: ONDANSETRON 4 MG/2 ML VIAL IV PRN (11:22)
[2020-03-06] MEDS ORDERED: POLYETHYLENE GLYCOL 3350 17 GM PACKET PO PRN (11:22)
[2020-03-06] MEDS ORDERED: MAGNESIUM SULFATE 2 GM/50 ML BAG IV PRN (11:22)
[2020-03-06] MEDS ORDERED: DEXTROSE 5%-1/2NS 1,000 ML IV SCH (11:22)
[2020-03-06] MEDS ORDERED: POTASSIUM CHLORIDE 20 MEQ PACKET PO PRN (11:22)
[2020-03-06] MEDS ORDERED: DEXTROSE 50% 50 ML VIAL IV PRN (11:22)
[2020-03-06] MEDS ORDERED: ONDANSETRON 4 MG ODT TABLET SL PRN (11:22)
[2020-03-06] MEDS ORDERED: INSULIN LISPRO 1 UNIT/0.01 ML UNIT SQ SCH (11:30)
[2020-03-06] MEDS: INSULIN LISPRO 1 UNIT/0.01 ML UNIT SQ SCH ×3 (12:07→20:45)
[2020-03-06 16:30] LABS: ALT/SGPT 14 U/L (<40); AST/SGOT 20 U/L (<40); Albumin 3.4 gm/dL (3.2-5.2); Albumin/Globulin Ratio 1.6 (1.0-2.3); Alkaline Phosphatase 70 U/L (39-117); Bilirubin,Direct < 0.2 mg/dL (<0.3); Bilirubin,Total 0.2 mg/dL (0.1-1.0); Blood Urea Nitrogen 12 mg/dL (6-20); Calcium 9.2 mg/dL (8.6-10.4); Carbon Dioxide 20 mmol/L (22-30); Chloride 102 mmol/L (96-108); Globulin 2.1 gm/dL (2.2-3.7); Glomerular Filtration Rate 103; Glucose 354 mg/dL (70-105); Lactate Dehydrogenase 236 U/L (135-225); Phosphorous 3.8 mg/dL (2.5-4.5); Triglycerides 746 mg/dL (<150)
[2020-03-06] MEDS: INSULIN, 75/25 NPL/LISPRO 1 UNIT/0.01 ML UNIT SQ SCH (17:05)
[2020-03-06] MEDS ORDERED: SENNOSIDES/DOCUSATE SODIUM 1 TAB TABLET PO SCH (21:00)
[2020-03-06] MEDS ORDERED: HEPARIN 5,000 UNIT/ML VIAL SQ SCH (21:00)
[2020-03-06] MEDS ORDERED: GABAPENTIN 400 MG CAPSULE PO SCH (21:00)
[2020-03-07] MEDS ORDERED: LEVOTHYROXINE 100 MCG TABLET PO SCH (07:30)
[2020-03-07] MEDS: INSULIN LISPRO 1 UNIT/0.01 ML UNIT SQ SCH ×2 (07:35→11:54)
[2020-03-07] MEDS: 0.9 % SODIUM CHLORIDE 10 ML SYRINGE IV SCH (07:37)
[2020-03-07] MEDS ORDERED: POTASSIUM CHLORIDE 10 MEQ TABLET PO SCH (08:00)
[2020-03-07 08:02] LABS: ALT/SGPT 14 U/L (<40); AST/SGOT 14 U/L (<40); Albumin 3.3 gm/dL (3.2-5.2); Albumin/Globulin Ratio 1.9 (1.0-2.3); Alkaline Phosphatase 59 U/L (39-117); Bilirubin,Direct < 0.2 mg/dL (<0.3); Bilirubin,Total 0.3 mg/dL (0.1-1.0); Blood Urea Nitrogen 12 mg/dL (6-20); Calcium 9.1 mg/dL (8.6-10.4); Carbon Dioxide 25 mmol/L (22-30); Chloride 106 mmol/L (96-108); Globulin 1.7 gm/dL (2.2-3.7); Glomerular Filtration Rate 109; Glucose 123 mg/dL (70-105); Lactate Dehydrogenase 112 U/L (135-225); Triglycerides 360 mg/dL (<150); Uric Acid 2.5 mg/dL (2.5-8.0)
[2020-03-07] MEDS: INSULIN, 75/25 NPL/LISPRO 1 UNIT/0.01 ML UNIT SQ SCH (08:09)
[2020-03-07] MEDS: MIDODRINE 5 MG TABLET PO SCH ×2 (08:18→11:58)
[2020-03-07] MEDS: DOCUSATE SODIUM 100 MG CAPSULE PO SCH (08:19)
[2020-03-07 08:46] LABS: Eosinophils % (Manual) 4 % (0-7); Hemoglobin 10.9 g/dL (13.5-16.5); Lymphocytes % 49 % (15-49); Mean Cell Volume 90.6 fL (80.0-100.0); Mean Corpuscular HGB Conc 36.3 g/dL (31.0-36.0); Mean Platelet Volume 10.3 fL (7.4-10.4); Monocytes % (Manual) 9 % (1-12); Platelet Count 200 K/mcL (140-440); Platelet Estimate NORMAL (Normal); RBC 3.31 M/mcL (4.50-5.90); RBC Morphology NORMAL (Normal); Reactive Lymphocytes 3 % (0-2); Red Cell Distribution Width 13.2 % (11.5-14.5); Segmented Neutrophils % 35 % (38-78); WBC 4.8 K/mcL (4.5-11.0)
[2020-03-07] MEDS ORDERED: ATORVASTATIN 40 MG TABLET PO SCH (09:00)
[2020-03-07] MEDS ORDERED: FLUDROCORTISONE 0.1 MG TABLET PO SCH (09:00)
[2020-03-07] MEDS ORDERED: CLOPIDOGREL 75 MG TABLET PO SCH (09:00)
[2020-03-07] MEDS ORDERED: VITAMIN D3 1,000 UNIT TABLET PO SCH (09:00)
[2020-03-07] MEDS ORDERED: ASPIRIN 81 MG TAB.CHEW PO SCH (09:00)
[2020-03-07] MEDS ORDERED: MULTIVIT,THER IRON,CA,FA & MIN 1 TABLET PO SCH (09:00)
[2020-03-07] MEDS ORDERED: THIAMINE 100 MG TABLET PO SCH (09:00)
[2020-03-07] MEDS: GABAPENTIN 400 MG CAPSULE PO SCH (09:18)
[2020-03-07] MEDS: CYANOCOBALAMIN (VITAMIN B-12) 500 MCG TABLET PO SCH (09:19)
--- NOTE | 2020-03-07 10:32 | Discharge Summary ---
Discharge Provider Provider Patient information: Note initiated : 03/07/20 at 10:29 am Service Date, if different from initiated Date: [] Patient: Clovis Ureña 49 y/o M admitted on 03/04/20 for weakness, nausea. Chief Complaint: Discharge diagnosis * DKA-clinical improvement noted with continued management per protocol. Now transition to basal panel insulin/CC diet. Discharging advised to follow-up with primary care physician * Hypokalemia resolved with replacement * History of CAD managed on home dose Plavix/statin/aspirin * History of adrenal insufficiency with hypotension currently on fludrocortisone/midodrine. * Hypothyroidism on thyroxine * Neuropathy continue gabapentin * Generalized weight loss-nutrition support Brief hospital course History of present illness: Mr. Ureña is a 49 year old M with a known history of diabetes/recurrent DKA/CAD/HTN and neuropathy who presented to the ER with increasing weakness, tremors, weight loss, fatigue and lack of appetite. Patient also complains of polyuria and polydipsia. He endorses his blood sugars has not been in good control as he has not been able to establish with a primary care physician. He last seen a physician at [place] however after he moved to [facility] in July he has not been able to return to [place] due to COVID-19. He currently lives with his mother. Initial evaluation in the ER work-up was consistent with DKA with a pH of 7.17/bicarb 8 and elevated blood sugar/ketones. Patient was promptly started on insulin drip along with crystalloids. Subsequently hospitalist service was consulted At the time of my evaluation patient is alert but very anxious fidgety. He was able to endorse history as above. Denies bloody stool, fever, recent sick contacts, cough or dysuria. is also concerned about his thyroid status and feels that DKA was precipitated once his thyroid starts acting up. Work-up today revealed TSH 7.53 03/05-patient doing well. pH normalized. Continue insulin drip. Improving anion gap. Remains NPO. Continue management per DKA protocol. Patient remains fairly anxious 03/06-patient overnight on insulin drip at 1.5/h. Blood sugars much improved. Anion gap normalized. Bicarbonate at 19. Electrolytes stable. Transition to CC diet/7030 home dose insulin/Accu-Cheks. Transfer to medical floor. Possibly will discharge in 24 hours however will need outpatient close monitoring and follow-up with PCP which he has been able to do so in the last 6 months. 03/07-patient doing well. Blood sugars at goal. Discharging home with advised to continue follow-up with primary care physician as scheduled. Continue basal prandial insulin/CC diet. Date of admission: 03/04/20 23:22 Discharge date: 03/07/20 Primary care physician: PCP No Consults: 03/04/20 Consult to Physician [CONS] Stat Comment: Consulting Provider: Malcom Gray Reason For Exam: Physician to Consult Discharge Meds Discharge Medications Home Medications aspirin 81 mg PO QDAY 03/04/20 [History Confirmed 03/05/20 Last Taken 03/04/20 08:00] atorvastatin 80 mg PO QDAY 03/04/20 [History Confirmed 03/05/20 Last Taken 03/04/20 08:00] cholecalciferol (vitamin D3) [Vitamin D3] 50 mcg PO QDAY 03/04/20 [History Confirmed 03/05/20 Last Taken 03/04/20 08:00] clopidogrel [Plavix] 75 mg PO QDAY 03/04/20 [History Confirmed 03/05/20 Last Taken 03/04/20 08:00] fludrocortisone 0.2 mg PO QDAY 03/04/20 [History Confirmed 03/05/20 Last Taken 03/04/20 08:00] gabapentin 400 mg PO BID 03/04/20 [History Confirmed 03/05/20 Last Taken 03/04/20 12:00] levothyroxine 200 mcg PO QDAY 03/04/20 [History Confirmed 03/05/20 Last Taken 03/04/20 08:00] midodrine 10 mg PO TID 03/04/20 [History Confirmed 03/05/20 Last Taken 03/04/20 21:00] potassium chloride 10 meq PO QDAY 03/04/20 [History Confirmed 03/05/20 Last Taken 03/04/20] Humulin 70/30 U-100 Insulin 50 unit SUBCUT BID 03/05/20 [History Confirmed 03/05/20 Last Taken 03/04/20 20:00] blood-glucose meter [Blood Glucose Monitoring] 03/05/20 [History Confirmed 03/05/20 Last Taken Unknown] gabapentin 800 mg PO QHS 03/05/20 [History Confirmed 03/05/20 Last Taken 03/04/20 21:00] COURSE Hospital Course Hospital course: . Discharge diagnosis: . Time Spent with Patient Time attestation: Total time spent providing and/or coordinating discharge services: EXAM Constitutional Vitals: Temp Pulse Resp BP Pulse Ox 98.1 F 75 18 84/61 96 03/07/20 08:00 03/07/20 08:00 03/07/20 08:00 03/07/20 08:00 03/07/20 08:00 Discharge Data Data Completed and Pending Labs on day of discharge: Labs from last 24 hours 03/07/20 03/07/20 03/06/20 05:40 05:40 14:24 WBC 4.8 RBC 3.31 L Hgb 10.9 L Hct 30.0 L MCV 90.6 MCH 32.9 MCHC 36.3 H RDW 13.2 Plt Count 200 MPV 10.3 Seg Neutrophils % 35 L Band Neutrophils % Pending Lymphocytes % 49 Monocytes % (Manual) 9 Eosinophils % (Manual) 4 Reactive Lymphocytes 3 H Platelet Estimate Normal RBC Morphology Normal Sodium 141 134 Potassium 3.1 L 4.1 Chloride 106 102 Carbon Dioxide 25 20 L Anion Gap 10.0 12.0 BUN 12 12 Creatinine 0.7 0.8 GFR Calculation 109 103 Glucose 123 H 354 H Uric Acid 2.5 3.0 Calcium 9.1 9.2 Phosphorus 5.0 H 3.8 Magnesium 1.9 2.0 Total Bilirubin 0.3 0.2 Direct Bilirubin < 0.2 < 0.2 GGT 49 21 AST 14 20 ALT 14 14 Alkaline Phosphatase 59 70 Lactate Dehydrogenase 112 L 236 H Total Protein 5.0 L 5.5 L Albumin 3.3 3.4 Globulin 1.7 L 2.1 L Albumin/Globulin Ratio 1.9 1.6 Triglycerides 360 H 746 H 03/06/20 03/06/20 03/05/20 05:20 05:20 23:00 WBC 7.1 RBC 3.88 L Hgb 12.7 L Hct 34.6 L MCV 89.2 MCH 32.7 MCHC 36.7 H RDW 12.8 Plt Count 252 MPV 10.2 Seg Neutrophils % 48 Band Neutrophils % Lymphocytes % 34 Monocytes % (Manual) 12 Eosinophils % (Manual) 6 Reactive Lymphocytes Platelet Estimate Normal RBC Morphology Normal Sodium 135 131 L Potassium 3.3 3.5 Chloride 105 102 Carbon Dioxide 19 L 19 L Anion Gap 11.0 10.0 BUN 11 12 Creatinine 0.8 0.8 GFR Calculation 103 103 Glucose 172 H 159 H Uric Acid 3.3 3.7 Calcium 9.0 8.9 Phosphorus 3.2 2.3 L Magnesium 2.0 2.2 Total Bilirubin 0.3 0.2 Direct Bilirubin < 0.2 < 0.2 GGT 111 H 72 H AST 17 17 ALT 13 13 Alkaline Phosphatase 61 68 Lactate Dehydrogenase 133 L 114 L Total Protein 5.2 L 5.4 L Albumin 3.5 3.5 Globulin 1.7 L 1.9 L Albumin/Globulin Ratio 2.1 1.8 Triglycerides 362 H 624 H Discharge Plan Patient/Caregiver Discharge Instructions Activity: increase activity as tolerated Diet: Consistent Carbohydrate Activity Restrictions/Additional Instructions: Follow-up with PCP as scheduled Continue routine blood sugar checks/insulin dose adjustments CC diet Return to ER if worsening nausea vomiting Prescriptions: Continued atorvastatin 80 mg Tablet 80 mg PO QDAY RF: 0 potassium chloride 10 mEq Capsule, Extended Release 10 meq PO QDAY RF: 0 gabapentin 400 mg Capsule 400 mg PO BID RF: 0 clopidogrel [Plavix] 75 mg Tablet 75 mg PO QDAY RF: 0 aspirin 81 mg Tablet,Delayed Release (Dr/Ec) 81 mg PO QDAY RF: 0 fludrocortisone 0.1 mg Tablet 0.2 mg PO QDAY RF: 0 midodrine 10 mg Tablet 10 mg PO TID RF: 0 cholecalciferol (vitamin D3) [Vitamin D3] 50 mcg (2,000 unit) Capsule 50 mcg PO QDAY RF: 0 levothyroxine 200 mcg Capsule 200 mcg PO QDAY RF: 0 gabapentin 400 mg Capsule 800 mg PO QHS RF: 0 (DME) blood-glucose meter [Blood Glucose Monitoring] Kit MISCELLANEOUS RF: 0 Humulin 70/30 U-100 Insulin 100 unit/mL (70-30) Suspension 50 unit SUBCUT BID RF: 0 Follow Up Plan Follow up with: No,PCP [Primary Care Provider] - Patient Disposition: Home, Self-Care Prognosis: Fair Rehab Potential: Fair I certify that the patient requires SNF services: No Overall status at discharge: patient is back to baseline Discharge Orders: Discharge Order (Routine); Ordered 03/07/20 Ordered By: Malcom JACOME VTE Deep Vein Thrombosis/Pulmonary Embolism Present on Admission: No
--- NOTE | 2020-03-09 15:51 | Emergency Department Note ---
HPI General Chief complaint: Weakness Stated complaint: weakness, nausea Time Seen by Provider: 03/04/20 17:25 Source: patient Mode of arrival: ambulatory Limitations: no limitations History of Present Illness HPI Narrative: Narrative: 49-Year-old patient presenting to the emergency department the chief complaint of high blood sugar concern for possible DKA or HH NS. Exacerbating factors include feeling generally ill, ameliorating factors include nothing. Time course for this is acute progressive over the past few days. Patient with abnormal labs vital signs and has been in the emergency department for several hours. Assumed care when midlevel went off shift. Related Data Home Medications Medication Instructions Recorded Confirmed aspirin 81 mg PO QDAY 03/04/20 03/05/20 atorvastatin 80 mg PO QDAY 03/04/20 03/05/20 cholecalciferol (vitamin D3) 50 mcg PO QDAY 03/04/20 03/05/20 [Vitamin D3] clopidogrel [Plavix] 75 mg PO QDAY 03/04/20 03/05/20 fludrocortisone 0.2 mg PO QDAY 03/04/20 03/05/20 gabapentin 400 mg PO BID 03/04/20 03/05/20 levothyroxine 200 mcg PO QDAY 03/04/20 03/05/20 midodrine 10 mg PO TID 03/04/20 03/05/20 potassium chloride 10 meq PO QDAY 03/04/20 03/05/20 Humulin 70/30 U-100 Insulin 50 unit SUBCUT BID 03/05/20 03/05/20 blood-glucose meter [Blood Glucose 03/05/20 03/05/20 Monitoring] gabapentin 800 mg PO QHS 03/05/20 03/05/20 Allergies Allergy/AdvReac Type Severity Reaction Status Date / Time phenytoin [From Dilantin] AdvReac Severe Unresponsiv Verified 03/05/20 07:25 e Review of Systems ROS ROS Narrative: Narrative: All systems ED: reviewed and negative except as stated. PFSH Narrative Patient History Narrative: Narrative: Medical/Surgical/Family History All Active Problems (Updated 03/04/20 @ 22:11 by Alexandre Henao PA-C) DKA (diabetic ketoacidoses) (Acute) Anemia (Acute) Hypothyroidism (Acute) Hypotension (Acute) Type 2 diabetes mellitus (Acute) Medical History CVA (cerebral vascular accident) (Acute ~11/2018) Hypotension (Acute) Myocardial infarction (Acute ~04/2018) Type 2 diabetes mellitus (Acute) Currently takes Humalog 70/30 insulin, 50 units twice daily. Unresponsive episode (Acute ~12/2018) Social History Smoking Status: Current every day smoker Exam Narrative Narrative: General: Alert, interactive, appropriate Head: Atraumatic, normocephalic Eyes: Extraocular movements intact, sclera anicteric, no conjunctival injection Ears: Pinnae normal, no discharge Mouth: Oral mucosa moist, no acute swelling or evidence of infection Nares: No nasal discharge, patent bilaterally Neck: Trachea midline, full range of motion Chest: Symmetrical chest wall rise, breathing normally; nonlabored respirations Cardiovascular: Patient with excellent perfusion to the extremities; with tachycardia Abd: no apparent abdominal distention, no voluntary/involuntary guarding Skin: Patient without area of erythema, patient is without rash, no ascending lymphangitis or lymphadenopathy Extremities: Full range of motion joints, no obvious deformities Neuro: Alert, oriented x3, cranial nerves II through XII grossly intact, patient without lateralizing findings such as weakness, or abnormal reflexes Psychiatric: Normal affect, normal mood General Limitations: no limitations Course Vital Signs Vital signs: Vital Signs Pulse Rate 103 H 03/04/20 16:57 Respiratory Rate 18 03/04/20 16:57 Blood Pressure 108/79 03/04/20 16:57 Pulse Oximetry (%) 99 03/04/20 16:57 Temperature 98.1 F 03/07/20 08:00 Pulse Rate 99 H 03/07/20 12:36 Respiratory Rate 20 03/07/20 12:36 Blood Pressure 84/55 03/07/20 12:36 Pulse Oximetry (%) 95 03/07/20 12:36 [facility] MDM Narrative Medical decision making narrative: Differential diagnosis includes alcoholic and fasting ketoacidosis, anion gap acidosis from aspirin, Tylenol, ethylene glycol, methanol, propylene glycol; as well as metabolic encephalopathy. Cause for DKA consider major illness such as sepsis, pancreatitis, MD, CVA or medication changes, malfunction of insulin administration, dietary changes as well as medication noncompliance or medication changes. In my medical opinion at this time patient most reasonably is managed with inpatient admission to the hospital. Patient treated with insulin and IV fluids here in the emergency department with improvement in findings. Patients potassium was assessed prior to administration of insulin to ensure hypokalemia did not ensue. Patient with elevated hydroxybutyrate levels and elevated blood sugar discussed the case with the hospitalist and patient was admitted for ongoing management of this issue. Lab Data Result diagrams: 03/07/20 05:40 03/07/20 05:40 Labs: Lab Results 03/04/20 03/04/20 03/04/20 Range/Units 19:00 19:00 19:00 WBC 2.3 L (4.5-11.0) K/mcL RBC 2.18 L (4.50-5.90) M/mcL Hgb 7.4 L (13.5-16.5) g/dL Hct 22.7 L (41.0-55.0) % POC Hct (41-55) % MCV 104.1 H (80.0-100.0) fL MCH 33.9 (26.0-34.0) pg MCHC 32.6 (31.0-36.0) g/dL RDW 12.9 (11.5-14.5) % Plt Count 143 (140-440) K/mcL MPV 9.7 (7.4-10.4) fL Neut % (Auto) 57.1 (38.0-78.0) % Lymph % (Auto) 27.7 (15.0-49.0) % [place] % (Auto) 13.0 H (1.0-12.0) % Eos % (Auto) 1.3 (0.0-7.0) % Baso % (Auto) 0.9 (0.0-2.0) % Lymph # (Auto) 0.64 L (1.50-4.80) K/mcL [place] # (Auto) 0.30 (0.10-0.90) K/mcL Eos # (Auto) 0.03 (0.00-0.70) K/mcL Baso # (Auto) 0.02 (0.00-0.20) K/mcL Absolute Neutrophils 1.32 L (1.80-8.00) K/mcL VBG Lactic Acid 0.7 (0.5-2.0) mmol/L POC Sodium (133-145) mEq/L Sodium TNP POC Potassium (3.3-5.1) mEql/L Potassium TNP POC Chloride (96-108) mEq/L Chloride TNP Carbon Dioxide TNP POC Total CO2 (22-30) mmol/L Anion Gap TNP POC BUN (6-20) mg/dL BUN TNP Creatinine TNP POC Creatinine (0.6-1.2) mg/dL GFR Calculation TNP Glucose TNP POC Glucose (70-105) mg/dL Calcium TNP POC WB Ioniz Calcium (1.16-1.32) mmEq/L Total Bilirubin TNP AST TNP ALT TNP Alkaline Phosphatase TNP Total Protein TNP Albumin TNP Globulin TNP Albumin/Globulin Ratio TNP Beta-Hydroxybutyrate (<0.27) mmol/L Procalcitonin (<0.10) ng/mL TSH (0.27-5.01) uIU/mL Urine Color Urine Appearance (Clear) Urine pH (5.0-9.0) Ur Specific [place] (1.000-1.035) Urine Protein (Negative) mg/dL Urine Glucose (UA) (Negative) mg/dL Urine Ketones (Negative) mg/dL Urine Occult Blood (Negative) mg/dL Urine Nitrate (Negative) Urine Bilirubin (Negative) mg/dL Urine Urobilinogen mg/dL Ur Leukocyte Esterase (Negative) /ug Urine RBC (0-1) /hpf Urine WBC (0-4) /hpf Ur Squamous Epith Cells (0-4) /hpf Urine Bacteria (0) /hpf Hyaline Casts (0-2) /lph Urine Mucus (None) /hpf Ur Culture Indicated? 03/04/20 03/04/20 03/04/20 Range/Units 19:00 19:00 19:54 WBC (4.5-11.0) K/mcL RBC (4.50-5.90) M/mcL Hgb (13.5-16.5) g/dL Hct (41.0-55.0) % POC Hct (41-55) % MCV (80.0-100.0) fL MCH (26.0-34.0) pg MCHC (31.0-36.0) g/dL RDW (11.5-14.5) % Plt Count (140-440) K/mcL MPV (7.4-10.4) fL Neut % (Auto) (38.0-78.0) % Lymph % (Auto) (15.0-49.0) % [place] % (Auto) (1.0-12.0) % Eos % (Auto) (0.0-7.0) % Baso % (Auto) (0.0-2.0) % Lymph # (Auto) (1.50-4.80) K/mcL [place] # (Auto) (0.10-0.90) K/mcL Eos # (Auto) (0.00-0.70) K/mcL Baso # (Auto) (0.00-0.20) K/mcL Absolute Neutrophils (1.80-8.00) K/mcL VBG Lactic Acid (0.5-2.0) mmol/L POC Sodium (133-145) mEq/L Sodium POC Potassium (3.3-5.1) mEql/L Potassium POC Chloride (96-108) mEq/L Chloride Carbon Dioxide POC Total CO2 (22-30) mmol/L Anion Gap POC BUN (6-20) mg/dL BUN Creatinine POC Creatinine (0.6-1.2) mg/dL GFR Calculation Glucose POC Glucose (70-105) mg/dL Calcium POC WB Ioniz Calcium (1.16-1.32) mmEq/L Total Bilirubin AST ALT Alkaline Phosphatase Total Protein Albumin Globulin Albumin/Globulin Ratio Beta-Hydroxybutyrate 5.55 H (<0.27) mmol/L Procalcitonin 0.02 (<0.10) ng/mL TSH 7.53 H (0.27-5.01) uIU/mL Urine Color Yellow Urine Appearance Clear (Clear) Urine pH 5.0 (5.0-9.0) Ur Specific [place] 1.028 (1.000-1.035) Urine Protein 100 A (Negative) mg/dL Urine Glucose (UA) >=500 A (Negative) mg/dL Urine Ketones 80 A (Negative) mg/dL Urine Occult Blood 0.03 (Negative) mg/dL Urine Nitrate Negative (Negative) Urine Bilirubin Negative (Negative) mg/dL Urine Urobilinogen Negative mg/dL Ur Leukocyte Esterase Negative (Negative) /ug Urine RBC < 1 (0-1) /hpf Urine WBC < 1 (0-4) /hpf Ur Squamous Epith Cells 0 (0-4) /hpf Urine Bacteria None (0) /hpf Hyaline Casts 13 H (0-2) /lph Urine Mucus Few A (None) /hpf Ur Culture Indicated? No 03/04/20 Range/Units 21:00 WBC (4.5-11.0) K/mcL RBC (4.50-5.90) M/mcL Hgb (13.5-16.5) g/dL Hct (41.0-55.0) % POC Hct 45 (41-55) % MCV (80.0-100.0) fL MCH (26.0-34.0) pg MCHC (31.0-36.0) g/dL RDW (11.5-14.5) % Plt Count (140-440) K/mcL MPV (7.4-10.4) fL Neut % (Auto) (38.0-78.0) % Lymph % (Auto) (15.0-49.0) % [place] % (Auto) (1.0-12.0) % Eos % (Auto) (0.0-7.0) % Baso % (Auto) (0.0-2.0) % Lymph # (Auto) (1.50-4.80) K/mcL [place] # (Auto) (0.10-0.90) K/mcL Eos # (Auto) (0.00-0.70) K/mcL Baso # (Auto) (0.00-0.20) K/mcL Absolute Neutrophils (1.80-8.00) K/mcL VBG Lactic Acid (0.5-2.0) mmol/L POC Sodium 131 L (133-145) mEq/L Sodium POC Potassium 4.5 (3.3-5.1) mEql/L Potassium POC Chloride 106 (96-108) mEq/L Chloride Carbon Dioxide POC Total CO2 8 L* (22-30) mmol/L Anion Gap POC BUN 17 (6-20) mg/dL BUN Creatinine POC Creatinine 0.5 L (0.6-1.2) mg/dL GFR Calculation Glucose POC Glucose 360 H (70-105) mg/dL Calcium POC WB Ioniz Calcium 1.17 (1.16-1.32) mmEq/L Total Bilirubin AST ALT Alkaline Phosphatase Total Protein Albumin Globulin Albumin/Globulin Ratio Beta-Hydroxybutyrate (<0.27) mmol/L Procalcitonin (<0.10) ng/mL TSH (0.27-5.01) uIU/mL Urine Color Urine Appearance (Clear) Urine pH (5.0-9.0) Ur Specific [place] (1.000-1.035) Urine Protein (Negative) mg/dL Urine Glucose (UA) (Negative) mg/dL Urine Ketones (Negative) mg/dL Urine Occult Blood (Negative) mg/dL Urine Nitrate (Negative) Urine Bilirubin (Negative) mg/dL Urine Urobilinogen mg/dL Ur Leukocyte Esterase (Negative) /ug Urine RBC (0-1) /hpf Urine WBC (0-4) /hpf Ur Squamous Epith Cells (0-4) /hpf Urine Bacteria (0) /hpf Hyaline Casts (0-2) /lph Urine Mucus (None) /hpf Ur Culture Indicated? Discharge Plan Patient/Caregiver Discharge Instructions Pt seen by [facility]/PA only: Yes Clinical Impression: DKA (diabetic ketoacidoses) Qualifiers: Diabetes mellitus type: type 2 Diabetes mellitus complication detail: without coma Qualified Code(s): E11.10 - Type 2 diabetes mellitus with ketoacidosis without coma Anemia Qualifiers: Anemia type: unspecified type Qualified Code(s): D64.9 - Anemia, unspecified Hypothyroidism Qualifiers: Hypothyroidism type: unspecified Qualified Code(s): E03.9 - Hypothyroidism, unspecified Activity: increase activity as tolerated Patient Disposition: Xfer As Inpt ([facility]) Condition: Fair Discharge Date/Time: 03/04/20 23:21
== END 2020-03-07 12:36 | disposition home or self-care (01) | DRG 638 ==
LOC: ED 16:56 → ICU 23:21 → MEDSUR 03-06 17:30
PROVIDERS: ADMIT Internal Medicine; ATTEND Internal Medicine

== ENCOUNTER 2020-06-24 15:51 | Inpatient (IN) ==
[2020-06-24] MEDS ORDERED: 0.9 % SODIUM CHLORIDE 1,000 ML IV ONE (15:56)
[2020-06-24] MEDS ORDERED: INSULIN REGULAR, HUMAN 1 UNIT/0.01 ML UNIT IV ONE (16:07)
--- NOTE | 2020-06-24 16:10 | Emergency Department Note ---
HPI General Chief complaint: Blood Sugar Problem Stated complaint: high blood sugars Time Seen by Provider: 06/24/20 15:56 Source: patient and RN notes reviewed Mode of arrival: ambulatory Limitations: no limitations History of Present Illness HPI Narrative: Narrative: This patient was sent over from the [facility] for hyperglycemia. 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 He does take insulin. His blood sugar was in the 500 range at the clinic. He has had osmotic diarrhea apparently from the high blood sugar. Also polyuria polydipsia for the last several days. He said no abdominal pain nausea or vomiting. No recent Covid symptoms with cough congestion or headache. Related Data Home Medications Medication Instructions Recorded Confirmed aspirin 81 mg PO QDAY 03/04/20 06/24/20 cholecalciferol (vitamin D3) 50 mcg PO QDAY 03/04/20 06/24/20 [Vitamin D3] blood-glucose meter [Blood Glucose 03/05/20 06/24/20 Monitoring] ibuprofen 200 mg tablet 400 mg PO TID tab 05/21/20 06/24/20 Previous Rx's Medication Instructions Recorded atorvastatin 80 mg tablet 80 mg PO QDAY #30 tab 04/15/20 clopidogrel 75 mg tablet 75 mg PO QDAY #30 tab 04/15/20 gabapentin 400 mg capsule 400 mg PO BID #60 cap 04/15/20 levothyroxine 200 mcg capsule 200 mcg PO QDAY #30 cap 04/15/20 midodrine 10 mg tablet 10 mg PO TID #90 tab 04/15/20 potassium chloride 10 mEq 10 meq PO QDAY #30 cap 04/15/20 capsule,extended release insulin glargine 100 unit/mL 20 unit SUB-Q BID #10 ml 05/27/20 subcutaneous solution insulin lispro 100 unit/mL 1 sliding scale dose SUB-Q 05/27/20 subcutaneous solution USEASDIRECTD #10 ml olanzapine 5 mg tablet 5 mg PO QHS #30 tab 05/27/20 Allergies Allergy/AdvReac Type Severity Reaction Status Date / Time phenytoin [From Dilantin] AdvReac Severe Unresponsiv Verified 06/24/20 15:53 e Review of Systems ROS ROS Narrative: Narrative: All systems ED: reviewed and negative except as stated. [facility] Narrative Patient History Narrative: Narrative: Medical/Surgical/Family History All Active Problems (Updated 06/24/20 @ 19:17 by Elliot Arnold MD) Diabetic ketoacidosis (Acute) Hemorrhoid thrombosis (Acute) Osmotic diarrhea (Acute) Acute hyperglycemia (Acute) 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) Labile mood (Acute) Blood glucose labile (Acute) Diabetes mellitus, insulin dependent (IDDM), uncontrolled (Acute) Adrenal insufficiency (Ghulam's disease) (Acute) Hypoglycemia unawareness associated with type 2 diabetes mellitus (Acute) Hypotension, chronic (Acute) Diabetes mellitus type 1.5, managed as type 1 (Acute) CVA (cerebral vascular accident) (Acute ~11/2018) Myocardial infarction (Acute ~04/2018) Tobacco dependence (Acute) Flu vaccine need (Acute) Myocardial infarction (Acute) Stroke due to embolism (Acute) Visual changes (Acute) Proteinuria due to type 2 diabetes mellitus (Acute) Adrenal insufficiency (Acute) Advance care planning (Acute) No pertinent past surgical history (Chronic) Arthritis (Chronic) Hypothyroidism (Chronic) Anemia (Chronic) DKA (diabetic ketoacidoses) (Chronic) Hypotension (Chronic) Type 2 diabetes mellitus (Chronic) Medical History (Updated 06/24/20 @ 19:17 by Elliot Arnold MD) Anemia (Chronic) Arthritis (Chronic) CVA (cerebral vascular accident) (Acute ~11/2018) DKA (diabetic ketoacidoses) (Chronic) Hypotension (Chronic) Hypothyroidism (Chronic) Myocardial infarction (Acute ~04/2018) Type 2 diabetes mellitus (Chronic) Currently takes Humalog 70/30 insulin, 50 units twice daily. Unresponsive episode (Acute ~12/2018) Surgical History No pertinent past surgical history (Chronic) Family History Uncle Diabetes mellitus Grandmother Diabetes mellitus Hypertension Mother Hypertension Social History Smoking Status: Current every day smoker Alcohol Intake Frequency: does not drink Substance Use: does not use Exam Narrative Narrative: Narrative: General Limitations: no limitations Head Head: Present atraumatic, normocephalic and normal inspection Eye Eye: Present normal appearance and EOMI; Absent scleral icterus and conjunctival injection ENT ENT: Present normal exam and mucous membranes dry Neck Neck: Present normal inspection and full ROM Chest Chest: Present normal inspection and symmetric chest wall rise Respiratory Respiratory: Present normal lung sounds bilaterally; Absent respiratory distress, rales/crackles and wheezes Cardiovascular Cardiovascular: Present regular rate, normal rhythm and normal heart sounds Adbominal Abdominal: Present soft; Absent distention and tenderness Extremities Extremities: Present normal inspection and full ROM; Absent pedal edema and pretibial edema Neurological Neurological: Present alert Psychiatric Psychiatric: Present normal affect Skin Skin: Present warm (WNL) and dry; Absent diaphoresis Course Vital Signs Vital signs: Vital Signs Temperature 97.3 F 06/24/20 15:51 Pulse Rate 99 H 06/24/20 15:51 Respiratory Rate 16 06/24/20 15:51 Blood Pressure 103/62 06/24/20 15:51 Pulse Oximetry (%) 97 06/24/20 15:51 Temperature 97.3 F 06/24/20 15:51 Pulse Rate 95 H 06/24/20 18:46 Respiratory Rate 16 06/24/20 15:51 Blood Pressure 103/69 06/24/20 18:46 Pulse Oximetry (%) 94 06/24/20 18:46 MDM MDM Narrative Medical decision making narrative: Narrative: This patient does have diabetic ketoacidosis and we started insulin drip at 5 units an hour and the patient will be admitted to the hospital by Dr. Villanueva Lab Data Lab results reviewed: Yes I reviewed the patient's lab results. Lab results narrative: Blood sugar 621 acetone is elevated at 5T CO2 was only 20 and anion gap 22 Result diagrams: 06/24/20 16:15 06/24/20 16:15 Labs: Lab Results 06/24/20 06/24/20 06/24/20 Range/Units 16:15 16:15 16:30 WBC 7.6 (4.5-11.0) K/mcL RBC 4.95 (4.50-5.90) M/mcL Hgb 15.7 (13.5-16.5) g/dL Hct 45.3 (41.0-55.0) % MCV 91.5 (80.0-100.0) fL MCH 31.7 (26.0-34.0) pg MCHC 34.7 (31.0-36.0) g/dL RDW 12.1 (11.5-14.5) % Plt Count 439 (140-440) K/mcL MPV 10.3 (7.4-10.4) fL Neut % (Auto) 59.6 (38.0-78.0) % Lymph % (Auto) 28.2 (15.0-49.0) % [place] % (Auto) 8.7 (1.0-12.0) % Eos % (Auto) 2.1 (0.0-7.0) % Baso % (Auto) 1.4 (0.0-2.0) % Lymph # (Auto) 2.15 (1.50-4.80) K/mcL [place] # (Auto) 0.66 (0.10-0.90) K/mcL Eos # (Auto) 0.16 (0.00-0.70) K/mcL Baso # (Auto) 0.11 (0.00-0.20) K/mcL Absolute Neutrophils 4.54 (1.80-8.00) K/mcL Sodium 132 L (133-145) mmol/L Potassium 4.7 (3.3-5.1) mmol/L Chloride 90 L (96-108) mmol/L Carbon Dioxide 20 L (22-30) mmol/L Anion Gap 22.0 H (8.0-16.0) BUN 23 H (6-20) mg/dL Creatinine 1.4 H (0.7-1.2) mg/dL GFR Calculation 57 Glucose 621 H* (70-105) mg/dL Calcium 9.5 (8.6-10.4) mg/dL Total Bilirubin 0.4 (0.1-1.0) mg/dL AST 40 H (<40) U/L ALT 67 H (<40) U/L Alkaline Phosphatase 112 (39-117) U/L Total Protein 7.6 (5.9-8.4) gm/dL Albumin 4.9 (3.2-5.2) gm/dL Globulin 2.7 (2.2-3.7) gm/dL Albumin/Globulin Ratio 1.8 (1.0-2.3) Beta-Hydroxybutyrate > 4.91 H (<0.27) mmol/L Urine Color Straw Urine Appearance Clear (Clear) Urine pH 5.0 (5.0-9.0) Ur Specific [place] 1.029 (1.000-1.035) Urine Protein Negative (Negative) mg/dL Urine Glucose (UA) >=500 A (Negative) mg/dL Urine Ketones 80 A (Negative) mg/dL Urine Occult Blood Negative (Negative) mg/dL Urine Nitrate Negative (Negative) Urine Bilirubin Negative (Negative) mg/dL Urine Urobilinogen Negative mg/dL Ur Leukocyte Esterase Negative (Negative) /ug Urine RBC 1 (0-3) /hpf Urine WBC < 1 (0-4) /hpf Ur Squamous Epith Cells 0 (0-4) /hpf Urine Bacteria None (0) /hpf Hyaline Casts 8 H (0-2) /lph Urine Mucus Few A (None) /hpf Urine Sperm Present A (Absent) /hpf Ur Culture Indicated? No Discharge Plan Patient/Caregiver Discharge Instructions Pt seen by [employer]/PA only: No Clinical Impression: Diabetic ketoacidosis Patient Disposition: Xfer As Inpt ([facility]) Follow up with: Ken Ni MD [Primary Care Provider] - Prescriptions: No Action atorvastatin 80 mg tablet 80 mg PO QDAY Qty: 30 RF: 3 clopidogrel [Plavix] 75 mg tablet 75 mg PO QDAY Qty: 30 RF: 6 levothyroxine 200 mcg capsule 200 mcg PO QDAY Qty: 30 RF: 6 midodrine 10 mg tablet 10 mg PO TID Qty: 90 RF: 6 potassium chloride 10 mEq capsule, extended release 10 meq PO QDAY Qty: 30 RF: 6 gabapentin 400 mg capsule 400 mg PO BID Qty: 60 RF: 6 ibuprofen 200 mg tablet 400 mg PO TID RF: 0 Lantus U-100 Insulin 100 unit/mL solution 20 unit SUB-Q BID Qty: 10 RF: 6 insulin lispro [Humalog U-100 Insulin] 100 unit/mL solution 1 sliding scale dose SUB-Q USEASDIRECTD Qty: 10 RF: 6 olanzapine 5 mg tablet 5 mg PO QHS Qty: 30 RF: 1 aspirin 81 mg Tablet,Delayed Release (Dr/Ec) 81 mg PO QDAY RF: 0 cholecalciferol (vitamin D3) [Vitamin D3] 50 mcg (2,000 unit) Capsule 50 mcg PO QDAY RF: 0 (DME) blood-glucose meter [Blood Glucose Monitoring] Kit MISCELLANEOUS RF: 0
[2020-06-24 16:49] LABS: Basophils # (Auto) 0.11 K/mcL (0.00-0.20); Basophils % (Auto) 1.4 % (0.0-2.0); Eosinophils # (Auto) 0.16 K/mcL (0.00-0.70); Eosinophils % (Auto) 2.1 % (0.0-7.0); Hematocrit 45.3 % (41.0-55.0); Hemoglobin 15.7 g/dL (13.5-16.5); Lymphocytes # (Auto) 2.15 K/mcL (1.50-4.80); Lymphocytes % (Auto) 28.2 % (15.0-49.0); Mean Cell Volume 91.5 fL (80.0-100.0); Mean Corpuscular HGB Conc 34.7 g/dL (31.0-36.0); Mean Platelet Volume 10.3 fL (7.4-10.4); Monocytes # (Auto) 0.66 K/mcL (0.10-0.90); Monocytes % (Auto) 8.7 % (1.0-12.0); Neutrophils % (Auto) 59.6 % (38.0-78.0); Platelet Count 439 K/mcL (140-440); RBC 4.95 M/mcL (4.50-5.90); Red Cell Distribution Width 12.1 % (11.5-14.5); WBC 7.6 K/mcL (4.5-11.0)
[2020-06-24 17:25] LABS: ALT/SGPT 67 U/L (<40); AST/SGOT 40 U/L (<40); Albumin 4.9 gm/dL (3.2-5.2); Albumin/Globulin Ratio 1.8 (1.0-2.3); Alkaline Phosphatase 112 U/L (39-117); Bilirubin,Total 0.4 mg/dL (0.1-1.0); Blood Urea Nitrogen 23 mg/dL (6-20); Calcium 9.5 mg/dL (8.6-10.4); Carbon Dioxide 20 mmol/L (22-30); Chloride 90 mmol/L (96-108); Globulin 2.7 gm/dL (2.2-3.7); Glomerular Filtration Rate 57; Glucose 621 mg/dL (70-105)
[2020-06-24 17:40] LABS: Beta Hydroxybutyrate > 4.91 mmol/L (<0.27)
[2020-06-24] MEDS ORDERED: INSULIN REGULAR, HUMAN 50 UNIT in 0.9 % SODIUM CHLORIDE 99.5 ML IV SCH ×3 (18:00→21:01)
[2020-06-24 19:06] LABS: Appearance,Urine CLEAR (Clear); Bilirubin,Urine Negative (Negative); Color,Urine STRAW; Culture Indicated,Urine No; Glucose,Urine (UA) >=500 mg/dL (Negative); Ketones,Urine 80 mg/dL (Negative); Leukocyte Esterase,Urine Negative /ug (Negative); Mucus,Urine FEW /hpf; Nitrate,Urine Negative (Negative); Protein,Urine Negative (Negative); Specific Gravity,Urine 1.029 (1.000-1.035); Sperm,Urine PRESENT /hpf (Absent); Urine Blood Negative (Negative); Urine Hyaline Cast 8 /lph (0-2); Urine RBC 1 /hpf (0-3); Urine Squamous Epithelial Cell 0 /hpf (0-4); Urine WBC < 1 /hpf (0-4); Urobilinogen,Urine Negative
--- NOTE | 2020-06-24 20:35 | Internal Med History&Physical ---
HPI History of Present Illness Patient information: Note initiated : 06/24/20 at 8:34 pm Service Date, if different from initiated Date: [] Patient: Clovis Ureña a 50 y/o M admitted on for high blood sugars. Chief Complaint: Elevated blood sugars History of present illness: Mr. Ureña is a 50 year old M with history of insulin-dependent diabetes with recurrent DKA, CKD stage III, CAD, adrenal insufficiency, neuropathy who was hospitalized in February and was discharged on home dose insulin. Patient has been working with his primary care physician during setting of insulin pump. He was changed from Novolin 70/30 to Lantus twice daily however was not able to receive his Humalog prandial coverage. Over the last 2 weeks his blood sugars have been gradually creeping up with very high numbers on his glucometer. He has associated fatigue, malaise, polyuria and polydipsia. He also complains of associated diarrhea. With worsening symptoms he presents to the ER. Initial work-up was consistent with DKA. Patient was started on insulin drip. Likely precipitant was inadequate use of insulin. No evidence of infection Hospital service was consulted after patient was started on DKA protocol At the time of my evaluation patient is alert and oriented. He was able to answer most the question. He denies active distress. He was however frustrated about his insulin regime and delay in procurement of insulin pump. He denies fever, chills, sick contacts, Covid symptoms, dysuria, bloody stool. He endorses diarrhea, weakness and weight loss Review of systems 10 point review system was performed and is negative except for ones discussed above PFSH PFSH All Active Problems (Updated 06/24/20 @ 19:17 by Elliot Arnold MD) Diabetic ketoacidosis (Acute) Hemorrhoid thrombosis (Acute) Osmotic diarrhea (Acute) Acute hyperglycemia (Acute) 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) Labile mood (Acute) Blood glucose labile (Acute) Diabetes mellitus, insulin dependent (IDDM), uncontrolled (Acute) Adrenal insufficiency (Ghulam's disease) (Acute) Hypoglycemia unawareness associated with type 2 diabetes mellitus (Acute) Hypotension, chronic (Acute) Diabetes mellitus type 1.5, managed as type 1 (Acute) CVA (cerebral vascular accident) (Acute ~11/2018) Myocardial infarction (Acute ~04/2018) Tobacco dependence (Acute) Flu vaccine need (Acute) Myocardial infarction (Acute) Stroke due to embolism (Acute) Visual changes (Acute) Proteinuria due to type 2 diabetes mellitus (Acute) Adrenal insufficiency (Acute) Advance care planning (Acute) No pertinent past surgical history (Chronic) Arthritis (Chronic) Hypothyroidism (Chronic) Anemia (Chronic) DKA (diabetic ketoacidoses) (Chronic) Hypotension (Chronic) Type 2 diabetes mellitus (Chronic) Medical History (Updated 06/24/20 @ 19:17 by Elliot Arnold MD) Anemia (Chronic) Arthritis (Chronic) CVA (cerebral vascular accident) (Acute ~11/2018) DKA (diabetic ketoacidoses) (Chronic) Hypotension (Chronic) Hypothyroidism (Chronic) Myocardial infarction (Acute ~04/2018) Type 2 diabetes mellitus (Chronic) Currently takes Humalog 70/30 insulin, 50 units twice daily. Unresponsive episode (Acute ~12/2018) Surgical History No pertinent past surgical history (Chronic) Family History Uncle Diabetes mellitus Grandmother Diabetes mellitus Hypertension Mother Hypertension Social History (Updated 04/17/20 @ 10:09 by Erica Naqvi) marital status: occupational status: unemployed smoking status: Current every day smoker alcohol intake frequency: does not drink substance use type: does not use MEDS/ALLERGIES Home Medications and Allergies Home Medications Medication Instructions Recorded Confirmed Type aspirin 81 mg PO QDAY 03/04/20 06/25/20 History cholecalciferol (vitamin D3) 50 mcg PO QDAY 03/04/20 06/25/20 History [Vitamin D3] blood-glucose meter [Blood Glucose 03/05/20 06/24/20 History Monitoring] atorvastatin 80 mg tablet 80 mg PO QDAY #30 tab 04/15/20 06/25/20 Rx clopidogrel 75 mg tablet 75 mg PO QDAY #30 tab 04/15/20 06/25/20 Rx gabapentin 400 mg capsule 400 mg PO BID #60 cap 04/15/20 06/25/20 Rx levothyroxine 200 mcg capsule 200 mcg PO QDAY #30 cap 04/15/20 06/25/20 Rx midodrine 10 mg tablet 10 mg PO TID #90 tab 04/15/20 06/25/20 Rx potassium chloride 10 mEq 10 meq PO QDAY #30 cap 04/15/20 06/24/20 Rx capsule,extended release ibuprofen 200 mg tablet 400 mg PO TID tab 05/21/20 06/25/20 History insulin glargine 100 unit/mL 20 unit SUB-Q BID #10 ml 05/27/20 06/25/20 Rx subcutaneous solution insulin lispro 100 unit/mL 1 sliding scale dose SUB-Q 05/27/20 06/25/20 Rx subcutaneous solution USEASDIRECTD #10 ml olanzapine 5 mg tablet 5 mg PO QHS #30 tab 05/27/20 06/25/20 Rx fludrocortisone 0.1 mg PO QDAY 06/25/20 06/25/20 History gabapentin 800 mg PO QHS 06/25/20 06/25/20 History Allergies Allergy/AdvReac Type Severity Reaction Status Date / Time phenytoin [From Dilantin] AdvReac Severe Unresponsiv Verified 06/24/20 15:53 e EXAM Constitutional Vitals: Temp Pulse Resp BP Pulse Ox 97.3 F 94 H 16 110/74 95 06/24/20 15:51 06/24/20 20:12 06/24/20 15:51 06/24/20 20:01 06/24/20 20:12 Anxious but pleasant demeanor and cooperative Thin individual with BMI of 18.9 Head normocephalic Oral cavity dry No ear nose discharge Eye movement symmetrical without nystagmus Neck supple no lymphadenopathy S1-S2 tachycardia mid 90s Nonlabored breathing Scaphoid nontender abdomen Lower extremity no cyanosis clubbing or joint swelling Skin no suspicious lesion Psych no hallucinations Neuro normal higher function DATA Data Completed and Pending Labs: Labs from last 24 hours 06/24/20 06/24/20 06/24/20 16:30 16:15 16:15 WBC 7.6 RBC 4.95 Hgb 15.7 Hct 45.3 MCV 91.5 MCH 31.7 MCHC 34.7 RDW 12.1 Plt Count 439 MPV 10.3 Neut % (Auto) 59.6 Lymph % (Auto) 28.2 [place] % (Auto) 8.7 Eos % (Auto) 2.1 Baso % (Auto) 1.4 Lymph # (Auto) 2.15 [place] # (Auto) 0.66 Eos # (Auto) 0.16 Baso # (Auto) 0.11 Absolute Neutrophils 4.54 Sodium 132 L Potassium 4.7 Chloride 90 L Carbon Dioxide 20 L Anion Gap 22.0 H BUN 23 H Creatinine 1.4 H GFR Calculation 57 Glucose 621 H* Calcium 9.5 Total Bilirubin 0.4 AST 40 H ALT 67 H Alkaline Phosphatase 112 Total Protein 7.6 Albumin 4.9 Globulin 2.7 Albumin/Globulin Ratio 1.8 Beta-Hydroxybutyrate > 4.91 H Urine Color Straw Urine Appearance Clear Urine pH 5.0 Ur Specific [place] 1.029 Urine Protein Negative Urine Glucose (UA) >=500 A Urine Ketones 80 A Urine Occult Blood Negative Urine Nitrate Negative Urine Bilirubin Negative Urine Urobilinogen Negative Ur Leukocyte Esterase Negative Urine RBC 1 Urine WBC < 1 Ur Squamous Epith Cells 0 Urine Bacteria None Hyaline Casts 8 H Urine Mucus Few A Urine Sperm Present A Ur Culture Indicated? No A/P Narrative A/P Narrative: * DKA-continue management protocol. Elevated anion gap/low bicarb/ketones. Continue insulin drip, * GUS secondary to volume depletion with creatinine 1.4. Continue crystalloid/monitor renal function * History of CAD continue Plavix statin aspirin * Diarrhea. Appears noninfectious. Continue monitoring * History of adrenal insufficiency continue fludrocortisone/midodrine at home dose * Neuropathy on gabapentin * Hypothyroidism continue thyroxine * prophylaxis heparin Plan * Inpatient ICU admission for management of DKA protocol * Monitor renal function * Pre-existing medical condition management on medications * Nutrition support/discharge planning/diarrhea education * Therapies as tolerated Time Spent With Patient Time: Total time spent is greater than 50% in coordination of care (as documented) at patient's floor/unit and/or counseling patient:
[2020-06-24] MEDS ORDERED: HEPARIN 5,000 UNIT/ML VIAL SQ SCH (21:00)
[2020-06-24] MEDS ORDERED: ACETAMINOPHEN 650 MG/65 ML BAG IV PRN (21:01)
[2020-06-24] MEDS ORDERED: POTASSIUM CHLORIDE 40 MEQ in DEXTROSE 5% IN WATER 500 ML IV PRN (21:01)
[2020-06-24] MEDS ORDERED: POTASSIUM CHLORIDE 20 MEQ PACKET PO PRN (21:01)
[2020-06-24] MEDS ORDERED: ONDANSETRON 4 MG/2 ML VIAL IV PRN (21:01)
[2020-06-24] MEDS ORDERED: ACETAMINOPHEN 325 MG TABLET PO PRN (21:01)
[2020-06-24] MEDS ORDERED: POLYETHYLENE GLYCOL 3350 17 GM PACKET PO PRN (21:01)
[2020-06-24] MEDS ORDERED: ONDANSETRON 4 MG ODT TABLET SL PRN (21:01)
[2020-06-24] MEDS ORDERED: MELATONIN 3 MG TABLET PO PRN (21:01)
[2020-06-24] MEDS ORDERED: MAGNESIUM SULFATE 2 GM/50 ML BAG IV PRN (21:01)
[2020-06-24] MEDS ORDERED: guaiFENesin/CODEINE 10 ML UDC PO PRN (21:01)
[2020-06-24] MEDS ORDERED: BISACODYL 10 MG SUPP.RECT PR PRN (21:01)
[2020-06-24] MEDS: 0.9 % SODIUM CHLORIDE 250 ML IV SCH (21:23)
[2020-06-24] MEDS: DEXTROSE 5%-1/2NS 1,000 ML IV SCH (21:46)
[2020-06-24] MEDS: GABAPENTIN 400 MG CAPSULE PO SCH (22:09)
[2020-06-24] MEDS: OLANZapine 5 MG TABLET PO SCH (22:10)
[2020-06-24] MEDS: DOCUSATE SODIUM 100 MG CAPSULE PO SCH (22:10)
[2020-06-24] MEDS: IBUPROFEN 200 MG TABLET PO SCH (22:10)
[2020-06-24] MEDS: SENNOSIDES/DOCUSATE SODIUM 1 TAB TABLET PO SCH (22:10)
[2020-06-24] MEDS: 0.9 % SODIUM CHLORIDE 10 ML SYRINGE IV SCH (22:11)
[2020-06-24 22:18] LABS: ABG Methemoglobin 0.3 % (0.4-1.5); Total Hemoglobin 14.4 gm/Dl (13.5-16.5); VBG Base Excess -1 (-2-3); VBG HCO3 24.6 mmol/L (24.0-28.0); VBG Oxygen Saturation 69.7 % (40.0-70.0); VBG PCO2 42.7 mmHg (41.0-51.0); VBG PH 7.38 U (7.32-7.42); VBG PO2 42.8 mmHg (25.0-40.0); VBG Total CO2 25.9 mmol/L (25.0-29.0)
[2020-06-25 01:12] LABS: ABG Methemoglobin 0.3 % (0.4-1.5); Total Hemoglobin 13.5 gm/Dl (13.5-16.5); VBG Base Excess 2 (-2-3); VBG HCO3 26.3 mmol/L (24.0-28.0); VBG Oxygen Saturation 93.3 % (40.0-70.0); VBG PCO2 40.8 mmHg (41.0-51.0); VBG PH 7.43 U (7.32-7.42); VBG PO2 96.7 mmHg (25.0-40.0); VBG Total CO2 27.5 mmol/L (25.0-29.0)
[2020-06-25] MEDS ORDERED: DEXTROSE 50% 50 ML VIAL IV ONE ×2 (01:44→01:50)
[2020-06-25 02:08] LABS: ALT/SGPT 51 U/L (<40); AST/SGOT 25 U/L (<40); Albumin 4.3 gm/dL (3.2-5.2); Albumin/Globulin Ratio 1.9 (1.0-2.3); Alkaline Phosphatase 87 U/L (39-117); Bilirubin,Direct < 0.2 mg/dL (<0.3); Bilirubin,Total 0.3 mg/dL (0.1-1.0); Blood Urea Nitrogen 20 mg/dL (6-20); Calcium 8.8 mg/dL (8.6-10.4); Carbon Dioxide 25 mmol/L (22-30); Chloride 102 mmol/L (96-108); Globulin 2.3 gm/dL (2.2-3.7); Glomerular Filtration Rate 98; Glucose 133 mg/dL (70-105); Lactate Dehydrogenase 139 U/L (135-225); Phosphorous 3.6 mg/dL (2.5-4.5); Triglycerides 229 mg/dL (<150); Uric Acid 6.1 mg/dL (2.5-8.0)
[2020-06-25] MEDS: 0.9 % SODIUM CHLORIDE 10 ML SYRINGE IV SCH ×3 (05:58→22:00)
[2020-06-25 06:30] LABS: Basophils # (Auto) 0.09 K/mcL (0.00-0.20); Basophils % (Auto) 1.3 % (0.0-2.0); Eosinophils # (Auto) 0.27 K/mcL (0.00-0.70); Eosinophils % (Auto) 3.9 % (0.0-7.0); Hematocrit 41.4 % (41.0-55.0); Hemoglobin 13.7 g/dL (13.5-16.5); Lymphocytes # (Auto) 2.47 K/mcL (1.50-4.80); Lymphocytes % (Auto) 35.7 % (15.0-49.0); Mean Cell Volume 95.2 fL (80.0-100.0); Mean Corpuscular HGB Conc 33.1 g/dL (31.0-36.0); Monocytes # (Auto) 0.64 K/mcL (0.10-0.90); Monocytes % (Auto) 9.2 % (1.0-12.0); Neutrophils % (Auto) 49.9 % (38.0-78.0); Platelet Count 360 K/mcL (140-440); RBC 4.35 M/mcL (4.50-5.90); Red Cell Distribution Width 12.1 % (11.5-14.5); WBC 6.9 K/mcL (4.5-11.0)
[2020-06-25 07:12] LABS: ALT/SGPT 39 U/L (<40); AST/SGOT 23 U/L (<40); Albumin 3.9 gm/dL (3.2-5.2); Albumin/Globulin Ratio 1.7 (1.0-2.3); Alkaline Phosphatase 78 U/L (39-117); Bilirubin,Direct < 0.2 mg/dL (<0.3); Bilirubin,Total 0.4 mg/dL (0.1-1.0); Blood Urea Nitrogen 18 mg/dL (6-20); Calcium 8.9 mg/dL (8.6-10.4); Carbon Dioxide 21 mmol/L (22-30); Chloride 102 mmol/L (96-108); Globulin 2.3 gm/dL (2.2-3.7); Glomerular Filtration Rate 102; Glucose 216 mg/dL (70-105); Lactate Dehydrogenase 166 U/L (135-225); Phosphorous 4.2 mg/dL (2.5-4.5); Triglycerides 176 mg/dL (<150); Uric Acid 5.9 mg/dL (2.5-8.0)
[2020-06-25] MEDS: ATORVASTATIN 40 MG TABLET PO SCH (08:31)
[2020-06-25] MEDS: MIDODRINE 5 MG TABLET PO SCH ×3 (08:31→17:43)
[2020-06-25] MEDS: IBUPROFEN 200 MG TABLET PO SCH ×3 (08:31→21:30)
[2020-06-25] MEDS: GABAPENTIN 400 MG CAPSULE PO SCH ×2 (08:31→21:32)
[2020-06-25] MEDS: POTASSIUM CHLORIDE 10 MEQ TABLET PO SCH (08:32)
[2020-06-25] MEDS: CLOPIDOGREL 75 MG TABLET PO SCH (08:32)
[2020-06-25] MEDS: LEVOTHYROXINE 100 MCG TABLET PO SCH (08:33)
[2020-06-25] MEDS: MULTIVIT,THER IRON,CA,FA & MIN 1 TABLET PO SCH (08:33)
[2020-06-25] MEDS: ASPIRIN 81 MG TAB.CHEW PO SCH (08:33)
[2020-06-25] MEDS: DOCUSATE SODIUM 100 MG CAPSULE PO SCH ×2 (08:34→21:29)
[2020-06-25] MEDS: 0.9 % SODIUM CHLORIDE 250 ML IV SCH (09:57)
[2020-06-25] MEDS: DEXTROSE 5%-1/2NS 1,000 ML IV SCH (09:57)
[2020-06-25] MEDS ORDERED: DEXTROSE 31 GM ORAL.SUSP PO PRN (10:00)
[2020-06-25] MEDS ORDERED: DEXTROSE 50% 50 ML VIAL IV PRN (10:00)
[2020-06-25] MEDS: INSULIN GLARGINE, HUMAN 1 UNIT/0.01 ML SQ SCH ×2 (10:44→21:30)
[2020-06-25] MEDS: INSULIN LISPRO 1 UNIT/0.01 ML UNIT SQ SCH ×3 (10:55→21:29)
--- NOTE | 2020-06-25 15:00 | Internal Med Progress Note ---
SUBJECTIVE Subjective Patient information: Note initiated : 06/25/20 at 2:57 pm Service Date, if different from initiated Date: [] Patient: Clovis Ureña 50 y/o M admitted on 06/24/20 for high blood sugars. Chief Complaint: [] Interval history: History of present illness: Mr. Ureña is a 50 year old M with history of insulin-dependent diabetes with recurrent DKA, CKD stage III, CAD, adrenal insufficiency, neuropathy who was hospitalized in February and was discharged on home dose insulin. Patient has been working with his primary care physician during setting of insulin pump. He was changed from Novolin 70/30 to Lantus twice daily however was not able to receive his Humalog prandial coverage. Over the last 2 weeks his blood sugars have been gradually creeping up with very high numbers on his glucometer. He has associated fatigue, malaise, polyuria and polydipsia. He also complains of associated diarrhea. With worsening symptoms he presents to the ER. Initial work-up was consistent with DKA. Patient was started on insulin drip. Likely precipitant was inadequate use of insulin. No evidence of infection Hospital service was consulted after patient was started on DKA protocol At the time of my evaluation patient is alert and oriented. He was able to answer most the question. He denies active distress. He was however frustrated about his insulin regime and delay in procurement of insulin pump. He denies fever, chills, sick contacts, Covid symptoms, dysuria, bloody stool. He endorses diarrhea, weakness and weight loss 2/4-patient doing well. No overnight events. Off insulin drip. Transition to diabetic diet/basal prandial insulin. Anion gap based, bicarbonate normalized. Blood sugars at goal. Sodium 138, creatinine 0.8 LFTs downtrending Constitutional Vitals: Vital Signs Temp Pulse Resp BP Pulse Ox 98.1 F 97 H 16 132/89 97 06/25/20 12:11 06/25/20 14:01 06/25/20 14:01 06/25/20 14:01 06/25/20 14:01 Period Temp Pulse Resp BP Sys/Hernandez Pulse Ox Last 24 Hr 97.3 F-99.2 F 65-107 8-24 91-132/52-89 92-99 Intake and Output 06/25/20 06/25/20 06/25/20 05:59 13:59 21:59 Intake Total 117 655 Output Total 450 Balance -333 655 alert oriented Nonlabored breathing Worsened abdomen No anxiety Intake & Output: Intake & Output 06/25/20 06/25/20 06/25/20 05:59 13:59 21:59 Intake Total 117 655 Output Total 450 Balance -333 655 Intake: IV 117 655 Sodium Chloride 0.9% 250 ml @ 92 20 mls/hr IV .[id number] SANTY Rx#: [id number] Dextrose 5%-1/2Ns IV Solution 1 655 ,000 ml @ 75 mls/hr IV .[id number] SANTY Rx#:[id number] HumuLIN R 50 UNIT In Sodium 25 Chloride 0.9% 99.5 ml @ 5 UNIT/ HR 10 mls/hr IV DUR SANTY Rx#: [id number] Oral 0 Output: Void Amount 450 Other: Meal Breakfast Percent of Meal Consumed 100% Urine Appearance Clear Urine Color Pale OBJ DATA Labs CBC & Chem 7: 06/25/20 05:14 06/25/20 05:14 Labs: Abnormal Lab Results 06/25/20 06/25/20 06/25/20 05:14 05:14 00:49 RBC 4.35 L ABG Methemoglobin 0.3 L VBG pH 7.43 H VBG pCO2 40.8 L VBG pO2 96.7 H VBG O2 Saturation 93.3 H Carboxyhemoglobin 3.7 H Sodium Chloride Carbon Dioxide 21 L Anion Gap BUN Creatinine Glucose 216 H AST ALT Triglycerides 176 H Beta-Hydroxybutyrate Urine Glucose (UA) Urine Ketones Hyaline Casts Urine Mucus Urine Sperm 06/25/20 06/24/20 06/24/20 00:49 21:51 16:30 RBC ABG Methemoglobin 0.3 L VBG pH VBG pCO2 VBG pO2 42.8 H VBG O2 Saturation Carboxyhemoglobin 6.4 H Sodium Chloride Carbon Dioxide Anion Gap BUN Creatinine Glucose 133 H AST ALT 51 H Triglycerides 229 H Beta-Hydroxybutyrate Urine Glucose (UA) >=500 A Urine Ketones 80 A Hyaline Casts 8 H Urine Mucus Few A Urine Sperm Present A 06/24/20 16:15 RBC ABG Methemoglobin VBG pH VBG pCO2 VBG pO2 VBG O2 Saturation Carboxyhemoglobin Sodium 132 L Chloride 90 L Carbon Dioxide 20 L Anion Gap 22.0 H BUN 23 H Creatinine 1.4 H Glucose 621 H* AST 40 H ALT 67 H Triglycerides Beta-Hydroxybutyrate > 4.91 H Urine Glucose (UA) Urine Ketones Hyaline Casts Urine Mucus Urine Sperm Meds: Medications Acetaminophen (Tylenol) 650 mg PO Q4-6HP PRN; Protocol PRN Reason: Per Pain Protocol/Fever > 101 Aspirin (Aspirin) 81 mg PO QDAY [facility] Last Admin: 06/25/20 08:33 Dose: 81 mg Documented by: Atorvastatin Calcium (Lipitor) 80 mg PO QDAY [facility] Last Admin: 06/25/20 08:31 Dose: 80 mg Documented by: Bisacodyl (Dulcolax) 10 mg MI Q2-3DAYS PRN PRN Reason: Constipation Clopidogrel Bisulfate (Plavix) 75 mg PO QDAY [facility] Last Admin: 06/25/20 08:32 Dose: 75 mg Documented by: Dextrose (Dextrose 50%) 0 ml IV UD PRN PRN Reason: Hypoglycemia Diagnostic Test (Pha) (Accu-Chek) 1 each FS ACHS [facility] Last Admin: 06/25/20 10:55 Dose: 1 each Documented by: Docusate Sodium (Colace) 100 mg PO BID [facility] Last Admin: 06/25/20 08:34 Dose: Not Given Documented by: Fludrocortisone Acetate (Florinef) 0.1 mg PO QDAY [facility] Gabapentin (Neurontin) 400 mg PO BID [facility] Last Admin: 06/25/20 08:31 Dose: 400 mg Documented by: Gabapentin (Neurontin) 800 mg PO QHS [facility] Glucose (Insta-Glucose) 15 gm PO PRN PRN PRN Reason: Hypoglycemia Guaifenesin/Codeine Phosphate (Robitussin Ac) 10 ml PO Q4HP PRN PRN Reason: Cough Potassium Chloride 40 meq/ (Dextrose) 520 mls @ 130 mls/hr IV UD PRN PRN Reason: K+ = or < 3.5 Acetaminophen (Ofirmev) 650 mg in 65 mls @ 130 mls/hr IV Q6HP PRN; Protocol PRN Reason: Per Pain Protocol/Fever > 101 Magnesium Sulfate (Magnesium Sulfate) 2 gm in 50 mls @ 50 mls/hr IV UD PRN PRN Reason: MG = or < 1.7 Dextrose/Sodium Chloride (Dextrose 5%-1/2ns Iv Solution) 1,000 mls @ 75 mls/hr IV .[id number] [facility] Last Admin: 06/25/20 09:57 Dose: Not Given Documented by: Insulin Human Regular 50 unit/ (Sodium Chloride) 100 mls @ 0 mls/hr IV DUR [facility]; Protocol Sodium Chloride (Sodium Chloride 0.9%) 250 mls @ 20 mls/hr IV .[id number] [facility] Last Admin: 06/25/20 09:57 Dose: Not Given Documented by: Ibuprofen (Motrin) 400 mg PO TID [facility]; Protocol Last Admin: 06/25/20 14:49 Dose: 400 mg Documented by: Insulin Glargine (Lantus) 25 unit SQ BID [facility] Last Admin: 06/25/20 10:44 Dose: 25 units Documented by: Insulin Human Lispro (Humalog) 0 unit SQ ACHS [facility]; Protocol Last Admin: 06/25/20 10:55 Dose: 6 unit Documented by: Iron Carb/Multivit/Summit/Folic Acid (Multivitamin W/Minerals) 1 tab PO DAILY [facility] Last Admin: 06/25/20 08:33 Dose: 1 tab Documented by: Levothyroxine Sodium (Synthroid) 200 mcg PO ACB [facility] Last Admin: 06/25/20 08:33 Dose: 200 mcg Documented by: Melatonin (Melatonin 3mg Tablet) 3 mg PO HSP PRN PRN Reason: Insomnia Midodrine (Midodrine Hcl) 10 mg PO TID@0800,1200,1700 [facility] Last Admin: 06/25/20 12:10 Dose: 10 mg Documented by: Olanzapine (Zyprexa) 5 mg PO QHS [facility] Last Admin: 06/24/20 22:10 Dose: 5 mg Documented by: Ondansetron HCl (Zofran Odt) 4 mg SL Q4-6HP PRN; Protocol PRN Reason: Nausea And Vomiting Ondansetron HCl (Zofran) 4 mg IV Q4-6HP PRN; Protocol PRN Reason: Nausea And Vomiting Polyethylene Glycol (Miralax) 17 gm PO DAILYP PRN PRN Reason: Constipation Potassium Chloride (Kdur) 10 meq PO QAMCC [facility] Last Admin: 06/25/20 08:32 Dose: 10 meq Documented by: Potassium Chloride (Klor-Con) 40 meq PO DAILYP PRN PRN Reason: K+ < 3.5 Senna/Docusate Sodium (Senna Plus Tablet) 1 tab PO HS [facility] Last Admin: 06/24/20 22:10 Dose: Not Given Documented by: Sodium Chloride (Saline Flush) 10 ml IV Q8 [facility] Last Admin: 06/25/20 13:12 Dose: 10 ml Documented by: Vitamin D (Vitamin D3) 2,000 unit PO DAILY [facility] ABG Interpretation ABG results: 06/24/20 06/25/20 21:51 00:49 ABG Methemoglobin 0.3 L 0.3 L VBG pH 7.38 7.43 H VBG pCO2 42.7 40.8 L VBG pO2 42.8 H 96.7 H VBG HCO3 24.6 26.3 VBG Total CO2 25.9 27.5 VBG O2 Saturation 69.7 93.3 H VBG Base Excess -1 2 A/P Narrative A/P Narrative: * DKA-clinically resolved with management per protocol. Off insulin drip. Now on basal prandial insulin/CC diet. * GUS secondary to volume depletion creatinine improved from 1.4-0.8 * History of CAD stable on Plavix statin aspirin * Diarrhea. Clinically improved, noninfectious * History of adrenal insufficiency continue fludrocortisone/midodrine at home dose * Neuropathy on gabapentin * Hypothyroidism continue thyroxine * prophylaxis heparin Plan * Transfer to medical floor * CC diet/basal prandial insulin * Pre-existing medical condition management on medications * Nutrition support/discharge planning/diabetic education * possible discharge in 24 hours Time Spent With Patient Time: Total time spent is greater than 50% in coordination of care (as documented) at patient's floor/unit and/or counseling patient: QUALITY VTE Deep Vein Thrombosis/Pulmonary Embolism Present on Admission: No
[2020-06-25] MEDS ORDERED: GABAPENTIN 400 MG CAPSULE PO SCH (21:00)
[2020-06-25] MEDS ORDERED: INSULIN GLARGINE, HUMAN 1 UNIT/0.01 ML SQ SCH (21:00)
[2020-06-25] MEDS: OLANZapine 5 MG TABLET PO SCH (21:32)
[2020-06-25] MEDS: SENNOSIDES/DOCUSATE SODIUM 1 TAB TABLET PO SCH (21:33)
[2020-06-25 22:10] LABS: ALT/SGPT 48 U/L (<40); AST/SGOT 63 U/L (<40); Albumin 3.9 gm/dL (3.2-5.2); Albumin/Globulin Ratio 1.6 (1.0-2.3); Alkaline Phosphatase 78 U/L (39-117); Bilirubin,Direct 0.2 mg/dL (<0.3); Bilirubin,Total 0.4 mg/dL (0.1-1.0); Blood Urea Nitrogen 17 mg/dL (6-20); Calcium 9.3 mg/dL (8.6-10.4); Carbon Dioxide 20 mmol/L (22-30); Chloride 96 mmol/L (96-108); Globulin 2.4 gm/dL (2.2-3.7); Glomerular Filtration Rate 98; Glucose 389 mg/dL (70-105); Lactate Dehydrogenase 214 U/L (135-225); Phosphorous 3.5 mg/dL (2.5-4.5); Triglycerides 236 mg/dL (<150); Uric Acid 5.9 mg/dL (2.5-8.0)
[2020-06-26] MEDS: 0.9 % SODIUM CHLORIDE 10 ML SYRINGE IV SCH ×2 (06:07→13:43)
[2020-06-26 06:44] LABS: Basophils # (Auto) 0.09 K/mcL (0.00-0.20); Basophils % (Auto) 1.3 % (0.0-2.0); Eosinophils # (Auto) 0.27 K/mcL (0.00-0.70); Hemoglobin 14.4 g/dL (13.5-16.5); Mean Cell Volume 90.7 fL (80.0-100.0); Mean Corpuscular HGB Conc 35.1 g/dL (31.0-36.0); Mean Platelet Volume 10.1 fL (7.4-10.4); Monocytes # (Auto) 0.56 K/mcL (0.10-0.90); Monocytes % (Auto) 8.3 % (1.0-12.0); Neutrophils % (Auto) 49.4 % (38.0-78.0); Platelet Count 388 K/mcL (140-440); RBC 4.52 M/mcL (4.50-5.90); WBC 6.8 K/mcL (4.5-11.0)
[2020-06-26 06:51] LABS: ALT/SGPT 104 U/L (<40); AST/SGOT 105 U/L (<40); Albumin 3.9 gm/dL (3.2-5.2); Albumin/Globulin Ratio 1.4 (1.0-2.3); Alkaline Phosphatase 90 U/L (39-117); Bilirubin,Direct < 0.2 mg/dL (<0.3); Bilirubin,Total 0.3 mg/dL (0.1-1.0); Blood Urea Nitrogen 15 mg/dL (6-20); Calcium 9.4 mg/dL (8.6-10.4); Carbon Dioxide 25 mmol/L (22-30); Chloride 99 mmol/L (96-108); Globulin 2.8 gm/dL (2.2-3.7); Glomerular Filtration Rate 102; Glucose 212 mg/dL (70-105); Lactate Dehydrogenase 246 U/L (135-225); Phosphorous 4.7 mg/dL (2.5-4.5); Triglycerides 173 mg/dL (<150); Uric Acid 4.2 mg/dL (2.5-8.0)
--- NOTE | 2020-06-26 07:07 | XRay Report ---
INDICATION: Interval Change TECHNIQUE: AP portable semiupright chest x-ray COMPARISON: Previous chest x-ray dated 03/06/2020 FINDINGS: Lungs:Lungs are negative. No focal pulmonary parenchymal infiltrate or mass Heart, vascular:No significant cardiomegaly. Pulmonary vascularity is normal. No pulmonary edema or pulmonary congestion Mediastinum, jaci:No mediastinal widening. No hilar mass Pleura:No pleural fluid. No pleural-based mass or calcification Skeletal:Negative. IMPRESSION: Negative AP chest x-ray. No interval change since 03/06/2020 Interpreted and Authenticated by: Stefan Griggs 06/26/20
[2020-06-26] MEDS: POTASSIUM CHLORIDE 10 MEQ TABLET PO SCH (07:26)
[2020-06-26] MEDS: LEVOTHYROXINE 100 MCG TABLET PO SCH (07:26)
[2020-06-26] MEDS: MIDODRINE 5 MG TABLET PO SCH ×2 (07:26→11:34)
[2020-06-26] MEDS: INSULIN LISPRO 1 UNIT/0.01 ML UNIT SQ SCH ×2 (07:35→11:48)
[2020-06-26] MEDS ORDERED: FLUDROCORTISONE 0.1 MG TABLET PO SCH (09:00)
[2020-06-26] MEDS ORDERED: VITAMIN D3 1,000 UNIT TABLET PO SCH (09:00)
[2020-06-26] MEDS: MULTIVIT,THER IRON,CA,FA & MIN 1 TABLET PO SCH (09:16)
[2020-06-26] MEDS: IBUPROFEN 200 MG TABLET PO SCH (09:16)
[2020-06-26] MEDS: ASPIRIN 81 MG TAB.CHEW PO SCH (09:16)
[2020-06-26] MEDS: CLOPIDOGREL 75 MG TABLET PO SCH (09:17)
[2020-06-26] MEDS: INSULIN GLARGINE, HUMAN 1 UNIT/0.01 ML SQ SCH (09:17)
[2020-06-26] MEDS: ATORVASTATIN 40 MG TABLET PO SCH (09:17)
[2020-06-26] MEDS: GABAPENTIN 400 MG CAPSULE PO SCH (09:17)
[2020-06-26] MEDS: DOCUSATE SODIUM 100 MG CAPSULE PO SCH (09:18)
--- NOTE | 2020-06-26 11:02 | Discharge Summary ---
Discharge Provider Provider Patient information: Note initiated : 06/26/20 at 10:59 am Service Date, if different from initiated Date: [] Patient: Clovis Ureña 50 y/o M admitted on 06/24/20 for high blood sugars. Discharge diagnosis DKA-clinically resolved with management per protocol. Off insulin drip. Now on basal prandial insulin/CC diet. We will follow-up with PCP outpatient for initiation of insulin pump GUS secondary to volume depletion creatinine improved from 1.4-0.8 History of CAD managed on home dose Plavix statin aspirin Diarrhea. Clinically improved, noninfectious History of adrenal insufficiency stable on home dose fludrocortisone/midodrine at home dose Neuropathy on gabapentin Hypothyroidism continue thyroxine Brief hospital course istory of present illness: Mr. Ureña is a 50 year old M with history of insulin-dependent diabetes with recurrent DKA, CKD stage III, CAD, adrenal insufficiency, neuropathy who was hospitalized in February and was discharged on home dose insulin. Patient has been working with his primary care physician during setting of insulin pump. He was changed from Novolin 70/30 to Lantus twice daily however was not able to receive his Humalog prandial coverage. Over the last 2 weeks his blood sugars have been gradually creeping up with very high numbers on his glucometer. He has associated fatigue, malaise, polyuria and polydipsia. He also complains of associated diarrhea. With worsening symptoms he presents to the ER. Initial work-up was consistent with DKA. Patient was started on insulin drip. Likely precipitant was inadequate use of insulin. No evidence of infection Hospital service was consulted after patient was started on DKA protocol At the time of my evaluation patient is alert and oriented. He was able to answer most the question. He denies active distress. He was however frustrated about his insulin regime and delay in procurement of insulin pump. He denies fever, chills, sick contacts, Covid symptoms, dysuria, bloody stool. He endorses diarrhea, weakness and weight loss 2/4-patient doing well. No overnight events. Off insulin drip. Transition to diabetic diet/basal prandial insulin. Anion gap based, bicarbonate normalized. Blood sugars at goal. Sodium 138, creatinine 0.8 LFTs downtrending 2/5-patient doing a lot better. Blood sugars at goal. Tolerating CC diet. On basal prandial insulin. Will follow up with PCP as outpatient for initiation of insulin pump/management of diabetes. Complains of chronic diarrhea over the last 2 months however only to bowel movements during the last 48 hours. Will need outpatient work-up including GI follow-up if diarrhea persistent. Discharging on bilateral/basal prandial insulin Date of admission: 06/24/20 20:53 Discharge date: 06/26/20 Primary care physician: Ken Ni MD Consults: 06/24/20 Consult to Physician [CONS] Stat Comment: Consulting Provider: Malcom Gray Reason For Exam: Physician to Consult Discharge Meds Discharge Medications Home Medications aspirin 81 mg PO QDAY 03/04/20 [History Confirmed 06/25/20 Last Taken 06/23/20] cholecalciferol (vitamin D3) [Vitamin D3] 50 mcg PO QDAY 03/04/20 [History Confirmed 06/25/20 Last Taken 06/23/20] blood-glucose meter [Blood Glucose Monitoring] 03/05/20 [History Confirmed 06/24/20 Last Taken Unknown] atorvastatin 80 mg tablet 80 mg PO QDAY #30 tab 04/15/20 [Rx Confirmed 06/25/20 Last Taken 06/23/20] clopidogrel 75 mg tablet 75 mg PO QDAY #30 tab 04/15/20 [Rx Confirmed 06/25/20 Last Taken 06/23/20] gabapentin 400 mg capsule 400 mg PO BID #60 cap 04/15/20 [Rx Confirmed 06/25/20 Last Taken 06/23/20] levothyroxine 200 mcg capsule 200 mcg PO QDAY #30 cap 04/15/20 [Rx Confirmed 06/25/20 Last Taken 06/23/20] midodrine 10 mg tablet 10 mg PO TID #90 tab 04/15/20 [Rx Confirmed 06/25/20 Last Taken 06/23/20] potassium chloride 10 mEq capsule,extended release 10 meq PO QDAY #30 cap 04/15/20 [Rx Confirmed 06/24/20 Last Taken Unknown] ibuprofen 200 mg tablet 400 mg PO TID tab 05/21/20 [History Confirmed 06/25/20 Last Taken 06/23/20] olanzapine 5 mg tablet 5 mg PO QHS #30 tab 05/27/20 [Rx Confirmed 06/25/20 Last Taken 06/23/20] fludrocortisone 0.1 mg PO QDAY 06/25/20 [History Confirmed 06/25/20 Last Taken 06/23/20] gabapentin 800 mg PO QHS 06/25/20 [History Confirmed 06/25/20 Last Taken 06/23/20] Lantus U-100 Insulin 25 unit SUB-Q BID #10 ml 06/26/20 [Rx Last Taken Unknown] insulin lispro [Humalog U-100 Insulin] 1 sliding scale dose SUB-Q USEASDIRECTD #30 ml 06/26/20 [Rx Last Taken Unknown] COURSE Hospital Course Hospital course: . Discharge diagnosis: DKA Time Spent with Patient Time attestation: Total time spent providing and/or coordinating discharge services: EXAM Constitutional Vitals: Temp Pulse Resp BP Pulse Ox 97.7 F 72 15 119/84 95 06/26/20 08:01 06/26/20 10:01 06/26/20 10:01 06/26/20 10:01 06/26/20 10:01 Discharge Data Data Completed and Pending Labs on day of discharge: Labs from last 24 hours 06/26/20 06/26/20 06/25/20 04:54 04:54 12:10 WBC 6.8 RBC 4.52 Hgb 14.4 Hct 41.0 MCV 90.7 MCH 31.9 MCHC 35.1 RDW 12.0 Plt Count 388 MPV 10.1 Neut % (Auto) 49.4 Lymph % (Auto) 37.0 [place] % (Auto) 8.3 Eos % (Auto) 4.0 Baso % (Auto) 1.3 Lymph # (Auto) 2.50 [place] # (Auto) 0.56 Eos # (Auto) 0.27 Baso # (Auto) 0.09 Absolute Neutrophils 3.33 Sodium 134 130 L Potassium 4.3 5.4 H Chloride 99 96 Carbon Dioxide 25 20 L Anion Gap 10.0 14.0 BUN 15 17 Creatinine 0.8 0.9 GFR Calculation 102 98 Glucose 212 H 389 H Uric Acid 4.2 5.9 Calcium 9.4 9.3 Phosphorus 4.7 H 3.5 Magnesium 2.1 2.0 Total Bilirubin 0.3 0.4 Direct Bilirubin < 0.2 0.2 GGT 35 25 AST 105 H 63 H ALT 104 H 48 H Alkaline Phosphatase 90 78 Lactate Dehydrogenase 246 H 214 Total Protein 6.7 6.3 Albumin 3.9 3.9 Globulin 2.8 2.4 Albumin/Globulin Ratio 1.4 1.6 Triglycerides 173 H 236 H Discharge Plan Patient/Caregiver Discharge Instructions Activity: increase activity as tolerated Diet: Consistent Carbohydrate Instructions: Diabetic Ketoacidosis (GEN), Meal Planning with Diabetes Exchanges (GEN) Activity Restrictions/Additional Instructions: Follow-up PCP 5 to 7 days Continue basal prandial insulin Outpatient GI work-up for chronic diarrhea including endoscopy if required Continue mannitol banana flakes for diarrhea Return to ER if worsening blood sugar/malaise lethargic, fever chills weakness noted This discharge packet is provided to you to help keep you informed about your care. We want to ensure you get everything you need when you go home. You will also be receiving a call from us in a few days to follow up with you and see how you are doing since your discharge. This gives us a chance to listen to any concerns you maybe experiencing since you were discharged or any additional needs you may have, as well as providing us feedback on your care experience. We strive to always provide excellent care and thank you for your feedback and for choosing [facility]. Prescriptions: Continued atorvastatin 80 mg tablet 80 mg PO QDAY Qty: 30 RF: 3 clopidogrel [Plavix] 75 mg tablet 75 mg PO QDAY Qty: 30 RF: 6 levothyroxine 200 mcg capsule 200 mcg PO QDAY Qty: 30 RF: 6 midodrine 10 mg tablet 10 mg PO TID Qty: 90 RF: 6 potassium chloride 10 mEq capsule, extended release 10 meq PO QDAY Qty: 30 RF: 6 gabapentin 400 mg capsule 400 mg PO BID Qty: 60 RF: 6 ibuprofen 200 mg tablet 400 mg PO TID RF: 0 olanzapine 5 mg tablet 5 mg PO QHS Qty: 30 RF: 1 aspirin 81 mg Tablet,Delayed Release (Dr/Ec) 81 mg PO QDAY RF: 0 cholecalciferol (vitamin D3) [Vitamin D3] 50 mcg (2,000 unit) Capsule 50 mcg PO QDAY RF: 0 (DME) blood-glucose meter [Blood Glucose Monitoring] Kit MISCELLANEOUS RF: 0 fludrocortisone 0.1 mg Tablet 0.1 mg PO QDAY RF: 0 gabapentin 800 mg Tablet 800 mg PO QHS RF: 0 insulin lispro [Humalog U-100 Insulin] 100 unit/mL solution 1 sliding scale dose SUB-Q USEASDIRECTD Qty: 30 RF: 6 Changed Lantus U-100 Insulin 100 unit/mL solution 25 unit SUB-Q BID Qty: 10 RF: 6 Follow Up Plan Follow up with: Ken Ni MD [Primary Care Provider] - 07/01/20 1:00 pm Patient Disposition: Home, Self-Care Rehab Potential: Fair I certify that the patient requires SNF services: No Overall status at discharge: patient is progressing back to baseline Discharge Orders: Discharge Order (Routine); Ordered 06/26/20 Ordered By: Malcom JACOME VTE Deep Vein Thrombosis/Pulmonary Embolism Present on Admission: No
== END 2020-06-26 13:55 | disposition home or self-care (01) | DRG 638 ==
LOC: ED 15:51 → ICU 20:53
PROVIDERS: ADMIT Internal Medicine; ATTEND Internal Medicine

== ENCOUNTER 2020-09-02 15:18 | Inpatient (IN) ==
[2020-09-02] MEDS ORDERED: 0.9 % SODIUM CHLORIDE 2,000 ML IV ONE (15:36)
[2020-09-02] MEDS ORDERED: HYDROCORTISONE SOD SUCC 100 MG VIAL IV ONE (15:36)
[2020-09-02] MEDS ORDERED: cefTRIAXone 1 GM VIAL IV ONE (15:38)
--- NOTE | 2020-09-02 15:45 | Emergency Department Note ---
Weakness HPI General Chief complaint: Weakness Stated complaint: weakness, elevated blood sugar, low BP Time Seen by Provider: 09/02/20 15:31 Source: patient and family Mode of arrival: wheelchair Limitations: no limitations and other (The patient is slender and cachectic appearing.) History of Present Illness HPI Narrative: Narrative: Presents to room T7 for evaluation of generalized weakness and low blood pressure. The patient has a past medical history of brittle diabetes and has had admissions in the past for DKA. The patient also carries a diagnosis of adrenal insufficiency. The patient currently takes midodrine as well as fludrocortisone for this. He states his blood pressure is normally low however today in the clinic the blood pressure was lower than typical. The patient has had significant weight loss over the last 6 months and has had poor regulation of his blood sugar. It is also reported that the patient had hemoptysis while at the clinic which is a new finding. The patient denies any fevers or shaking chills. No nausea or vomiting. He has had current diarrhea which is most likely osmotic related for the last 6 months. There is no report of rectal bleeding or black stools. No significant abdominal pain. Related Data Home Medications Medication Instructions Recorded Confirmed aspirin 81 mg PO QDAY 03/04/20 09/02/20 cholecalciferol (vitamin D3) 50 mcg PO QDAY 03/04/20 09/02/20 [Vitamin D3] blood-glucose meter [Blood Glucose 03/05/20 09/02/20 Monitoring] ibuprofen 200 mg tablet 400 mg PO TID tab 05/21/20 09/02/20 gabapentin 800 mg PO QHS 06/25/20 09/02/20 Previous Rx's Medication Instructions Recorded clopidogrel 75 mg tablet 75 mg PO QDAY #30 tab 04/15/20 gabapentin 400 mg capsule 400 mg PO BID #60 cap 04/15/20 potassium chloride 10 mEq 10 meq PO QDAY #30 cap 04/15/20 capsule,extended release insulin lispro [Humalog U-100 1 sliding scale dose SUB-Q 06/26/20 Insulin] USEASDIRECTD #30 ml blood pressure monitor #1 each 07/01/20 fludrocortisone 0.1 mg tablet 0.1 mg PO QDAY #90 tab 07/01/20 levothyroxine 200 mcg capsule 200 mcg PO QDAY #90 cap 07/01/20 blood sugar diagnostic #100 ea 07/23/20 olanzapine 5 mg tablet 10 mg PO QHS #90 tab 07/24/20 pravastatin 80 mg tablet 80 mg PO QHS #30 tab 08/05/20 glucagon HCl 1 mg solution for 1 mg SUBCUT Q20M PRN #1 ea 08/19/20 injection insulin glargine 100 unit/mL 30 unit SUBCUT QPM #10 ml 08/19/20 subcutaneous solution insulin glargine 100 unit/mL 35 unit SUBCUT QAM #10 ml 08/19/20 subcutaneous solution insulin lispro 100 unit/mL 7 unit SUBCUT TID #10 ml 08/19/20 subcutaneous solution insulin syr/ndl U100 half ida 0.3 #100 ea 08/19/20 mL 30 gauge x 5/16" midodrine 10 mg tablet 10 mg PO TID #270 tab 08/19/20 Allergies Allergy/AdvReac Type Severity Reaction Status Date / Time phenytoin [From Dilantin] AdvReac Severe Unresponsiv Verified 09/02/20 15:21 e Review of Systems ROS ROS Narrative: Narrative: All systems ED: reviewed and negative except as stated. PFSH Narrative Patient History Narrative: Narrative: Medical/Surgical/Family History All Active Problems Hemoptysis (Acute) Acute hyperglycemia (Acute) COVID-19 vaccine dose declined (Acute) High arches (Acute) Diabetic ketoacidosis (Acute) Hemorrhoid thrombosis (Acute) Osmotic diarrhea (Acute) Acute hyperglycemia (Acute) 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) Labile mood (Acute) Blood glucose labile (Acute) Diabetes mellitus, insulin dependent (IDDM), uncontrolled (Acute) Adrenal insufficiency (Ghulam's disease) (Acute) Hypoglycemia unawareness associated with type 2 diabetes mellitus (Acute) Hypotension, chronic (Acute) Diabetes mellitus type 1.5, managed as type 1 (Acute) CVA (cerebral vascular accident) (Acute ~11/2018) Myocardial infarction (Acute ~04/2018) Tobacco dependence (Acute) Flu vaccine need (Acute) Myocardial infarction (Acute) Stroke due to embolism (Acute) Visual changes (Acute) Proteinuria due to type 2 diabetes mellitus (Acute) Adrenal insufficiency (Acute) Advance care planning (Acute) No pertinent past surgical history (Chronic) Arthritis (Chronic) Hypothyroidism (Chronic) Anemia (Chronic) DKA (diabetic ketoacidoses) (Chronic) Hypotension (Chronic) Type 2 diabetes mellitus (Chronic) Medical History Anemia Arthritis CVA (cerebral vascular accident) (~11/2018) DKA (diabetic ketoacidoses) Hypotension Hypothyroidism Myocardial infarction (~04/2018) Type 2 diabetes mellitus Currently takes Humalog 70/30 insulin, 50 units twice daily. Unresponsive episode (~12/2018) Surgical History No pertinent past surgical history Family History Uncle Diabetes mellitus Grandmother Diabetes mellitus Hypertension Mother Hypertension Social History Smoking Status: Current every day smoker Alcohol Intake Frequency: does not drink Substance Use: does not use Exam Narrative Narrative: Narrative: General Limitations: no limitations and other (The patient is slender and cachectic appearing.) General appearance: Present alert and in no apparent distress Head Head: Present atraumatic, normocephalic and normal inspection Eye Eye: Present normal appearance and EOMI; Absent conjunctival injection ENT ENT: Present normal exam and mucous membranes moist Neck Neck: Present normal inspection and trachea midline Respiratory Respiratory: Present normal lung sounds bilaterally; Absent respiratory distress Cardiovascular Cardiovascular: Present regular rate, normal rhythm and normal heart sounds Adbominal Abdominal: Present soft; Absent distention, tenderness, guarding and rebound Extremities Extremities: Present normal inspection; Absent tenderness Back Back: Present normal inspection; Absent tenderness Neurological Neurological: Present alert, oriented X3 and CN II-XII intact; Absent motor sensory deficit Psychiatric Psychiatric: Present normal affect and normal mood Skin Skin: Present warm (WNL) and dry; Absent rash Course Vital Signs Vital signs: Vital Signs Temperature 98.6 F 09/02/20 15:19 Pulse Rate 96 H 09/02/20 15:19 Respiratory Rate 20 09/02/20 15:19 Blood Pressure 85/65 09/02/20 15:19 Pulse Oximetry (%) 97 09/02/20 15:19 Temperature 98.6 F 09/02/20 15:19 Pulse Rate 92 H 09/02/20 15:21 Respiratory Rate 17 09/02/20 15:21 Blood Pressure 85/65 09/02/20 15:21 Pulse Oximetry (%) 96 09/02/20 15:21 MDM MDM Narrative Medical decision making narrative: Narrative: The patient was sent to the emergency department from primary care clinic for low blood pressure in the context of underlying brittle diabetes and adrenal insufficiency. On arrival labs were initiated including blood cultures and IV fluids. The patient was given a dose of empiric antibiotics. He was also given a stress dose of hydrocortisone 100 mg IV. I have asked the oncoming physician to assume care fo r the patient, follow-up on diagnostic studies ordered and disposition the patient. Discharge Plan Patient/Caregiver Discharge Instructions Pt seen by MALTER OPERATOR/PA only: No Patient Disposition: Still a Patient Condition: Fair Follow up with: Ken Ni MD [Primary Care Provider] - Prescriptions: No Action (DME) Blood Glucose Test Strip See Rx Instructions .ROUTE .MEDSUPPLY Qty: 100 RF: 9 olanzapine 5 mg tablet 10 mg PO QHS Qty: 90 RF: 0 clopidogrel [Plavix] 75 mg tablet 75 mg PO QDAY Qty: 30 RF: 6 potassium chloride 10 mEq capsule, extended release 10 meq PO QDAY Qty: 30 RF: 6 gabapentin 400 mg capsule 400 mg PO BID Qty: 60 RF: 6 ibuprofen 200 mg tablet 400 mg PO TID RF: 0 fludrocortisone 0.1 mg tablet 0.1 mg PO QDAY Qty: 90 RF: 3 levothyroxine 200 mcg capsule 200 mcg PO QDAY Qty: 90 RF: 3 (DME) blood pressure monitor [Blood Pressure Kit] Kit See Rx Instructions .ROUTE .MEDSUPPLY Qty: 1 RF: 0 pravastatin 80 mg tablet 80 mg PO QHS Qty: 30 RF: 6 midodrine 10 mg tablet 10 mg PO TID Qty: 270 RF: 3 Lantus U-100 Insulin 100 unit/mL solution 35 unit subcut QAM Qty: 10 RF: 3 Lantus U-100 Insulin 100 unit/mL solution 30 unit subcut QPM Qty: 10 RF: 3 insulin lispro [Humalog U-100 Insulin] 100 unit/mL solution 7 unit subcut TID Qty: 10 RF: 12 Glucagon (HCl) Emergency Kit 1 mg recon soln 1 mg subcut Q20M PRN (Reason: hypoglycemia) Qty: 1 RF: 12 (DME) insulin syr/ndl U100 half ida 0.3 mL 30 gauge x 5/16" syringe See Rx Instructions .ROUTE .MEDSUPPLY Qty: 100 RF: 12 aspirin 81 mg Tablet,Delayed Release (Dr/Ec) 81 mg PO QDAY RF: 0 cholecalciferol (vitamin D3) [Vitamin D3] 50 mcg (2,000 unit) Capsule 50 mcg PO QDAY RF: 0 (DME) blood-glucose meter [Blood Glucose Monitoring] Kit MISCELLANEOUS RF: 0 gabapentin 800 mg Tablet 800 mg PO QHS RF: 0 insulin lispro [Humalog U-100 Insulin] 100 unit/mL solution 1 sliding scale dose SUB-Q USEASDIRECTD Qty: 30 RF: 6
[2020-09-02 16:51] LABS: Basophils # (Auto) 0.02 K/mcL (0.00-0.20); Basophils % (Auto) 0.4 % (0.0-2.0); Eosinophils # (Auto) 0.02 K/mcL (0.00-0.70); Eosinophils % (Auto) 0.4 % (0.0-7.0); Hematocrit 44.7 % (41.0-55.0); Hemoglobin 15.5 g/dL (13.5-16.5); Lymphocytes # (Auto) 1.02 K/mcL (1.50-4.80); Lymphocytes % (Auto) 22.5 % (15.0-49.0); Mean Cell Volume 89.2 fL (80.0-100.0); Mean Corpuscular HGB Conc 34.7 g/dL (31.0-36.0); Mean Platelet Volume 10.7 fL (7.4-10.4); Monocytes # (Auto) 0.67 K/mcL (0.10-0.90); Monocytes % (Auto) 14.8 % (1.0-12.0); Neutrophils % (Auto) 61.9 % (38.0-78.0); Platelet Count 246 K/mcL (140-440); RBC 5.01 M/mcL (4.50-5.90); Red Cell Distribution Width 13.2 % (11.5-14.5); WBC 4.5 K/mcL (4.5-11.0)
[2020-09-02 16:56] LABS: Appearance,Urine HAZY (Clear); Bilirubin,Urine Negative (Negative); Calcium Oxalate Crystals,Urine FEW /hpf; Color,Urine YELLOW; Culture Indicated,Urine No; Glucose,Urine (UA) >=500 mg/dL (Negative); Ketones,Urine 80 mg/dL (Negative); Leukocyte Esterase,Urine Negative /ug (Negative); Mucus,Urine FEW /hpf; Nitrate,Urine Negative (Negative); Protein,Urine 100 mg/dL (Negative); Specific Gravity,Urine 1.028 (1.000-1.035); Urine Blood 0.03 mg/dL (Negative); Urine Granular Cast 8 /lph (0-0); Urine RBC 1 /hpf (0-3); Urine Squamous Epithelial Cell 1 /hpf (0-4); Urine WBC 2 /hpf (0-4); Urobilinogen,Urine Negative
[2020-09-02 17:11] LABS: ALT/SGPT 135 U/L (<40); AST/SGOT 87 U/L (<40); Albumin 5.1 gm/dL (3.2-5.2); Albumin/Globulin Ratio 1.6 (1.0-2.3); Alkaline Phosphatase 116 U/L (39-117); Bilirubin,Total 0.4 mg/dL (0.1-1.0); Blood Urea Nitrogen 14 mg/dL (6-20); Calcium 9.7 mg/dL (8.6-10.4); Carbon Dioxide 21 mmol/L (22-30); Chloride 99 mmol/L (96-108); Globulin 3.1 gm/dL (2.2-3.7); Glomerular Filtration Rate 63; Glucose 345 mg/dL (70-105)
--- NOTE | 2020-09-02 18:29 | Cat Scan Report ---
CLINICAL INFORMATION: Hemoptysis and hypotension COMPARISON: None. TECHNIQUE: Enteric contrast was utilized. 0.625 mm helical slices were obtained from the lung apices through the subtrochanteric regions of the femurs. Following reconstruction, 2.5 mm sagittal, coronal and axial reformatted images were processed and reviewed at multiple windows and levels. 7 mm MIP reconstructions were obtained through the lungs to optimize nodule detection.The exam was performed using radiation dose optimization techniques including, but not limited to, automated exposure control, adjustment of the mA and/or kV according to patient size and use of iterative reconstruction technique. Note: Early, this exam was actually ordered with intravenous contrast liver, the IV blew during contrast injection resulting extravasation into the antecubital fossa. The extremity will be capped elevated and compresses while be performed. X-ray report this region is pending FINDINGS: Pulmonary parenchymal windows show mild elevation of the lung volumes and wall thickening/ dilatation of bronchi suggesting bronchitis or asthma. Mild patchy groundglass airspace disease seen in the lingula. There is also patchy groundglass and alveolar airspace disease in the posterior lower lobes-more prominent on the left. This could represent atelectasis or developing infiltrate. There are no effusions. Mediastinal windows show the heart is normal in size. A small/moderate pericardial effusion has higher attenuation fluid which could indicate hemorrhage or infection. Moderate calcific plaque present left main and proximal LAD. The noncontrast thoracic aorta and pulmonary arteries are normal in diameter. There is no adenopathy in the mediastinal hilar or axillary regions. Esophagus is unremarkable. 14 mm colloid cyst present within the right thyroid. Abdominal images show the noncontrasted gallbladder and bile ducts, liver, both kidneys, adrenal glands, spleen, pancreas and aorta to be normal in size, configuration and attenuation without focal lesion. There is no free air, free fluid or adenopathy. Pelvic images show prostate, seminal vesicles urinary bladder are normal. There is moderate wall thickening of the rectum and distal sigmoid with injection in the perirectal fat suggesting proctitis. Scattered sigmoid diverticuli appreciated. The remaining colon appendix small bowel and stomach are normal. Bone windows show no osseous abnormality. IMPRESSION: 1. Small/moderate pericardial effusion with elevated density which could indicate hemorrhage or infection. There echocardiogram 2. Mild patchy groundglass infiltrates in the lingula and posterior lower lobes-most prominent in the left lower lobe. Consider aspiration or pneumonia. 3. Moderate concentric wall thickening of the rectum and distal sigmoid with injection of the perirectal fat suggesting proctitis-distal colitis. Please correlate with physical exam findings. Interpreted and Authenticated by: Stefan Russo 09/02/20
--- NOTE | 2020-09-02 18:31 | XRay Report ---
CLINICAL INFORMATION: contrast iv blew COMPARISON: None. FINDINGS: A large amount of contrast spanning 20 x 3 cm is seen in the medial soft tissues of the mid and distal humerus. This is following contrast injection for CT with extravasation. IMPRESSION: Large amount of contrast throughout the medial soft tissues of the mid and distal humerus. Patient should keep arm elevated with heat compresses. Typically, contrast has resorbed quite readily. Interpreted and Authenticated by: Stefan Russo 09/02/20
--- NOTE | 2020-09-02 19:57 | Emergency Department Note ---
HPI General Chief complaint: Weakness Stated complaint: weakness, elevated blood sugar, low BP Time Seen by Provider: 09/02/20 15:31 Source: patient and family Mode of arrival: wheelchair Limitations: no limitations and other (The patient is slender and cachectic appearing.) History of Present Illness HPI Narrative: Narrative: Patient signed out to me pending labs and CAT scan and disposition. Please refer to Dr. Heller's note for full history and physical Related Data Home Medications Medication Instructions Recorded Confirmed aspirin 81 mg PO QDAY 03/04/20 09/02/20 cholecalciferol (vitamin D3) 50 mcg PO QDAY 03/04/20 09/02/20 [Vitamin D3] blood-glucose meter [Blood Glucose 03/05/20 09/02/20 Monitoring] ibuprofen 200 mg tablet 400 mg PO TID tab 05/21/20 09/02/20 gabapentin 800 mg PO QHS 06/25/20 09/02/20 Previous Rx's Medication Instructions Recorded clopidogrel 75 mg tablet 75 mg PO QDAY #30 tab 04/15/20 gabapentin 400 mg capsule 400 mg PO BID #60 cap 04/15/20 potassium chloride 10 mEq 10 meq PO QDAY #30 cap 04/15/20 capsule,extended release insulin lispro [Humalog U-100 1 sliding scale dose SUB-Q 06/26/20 Insulin] USEASDIRECTD #30 ml blood pressure monitor #1 each 07/01/20 fludrocortisone 0.1 mg tablet 0.1 mg PO QDAY #90 tab 07/01/20 levothyroxine 200 mcg capsule 200 mcg PO QDAY #90 cap 07/01/20 blood sugar diagnostic #100 ea 07/23/20 olanzapine 5 mg tablet 10 mg PO QHS #90 tab 07/24/20 pravastatin 80 mg tablet 80 mg PO QHS #30 tab 08/05/20 glucagon HCl 1 mg solution for 1 mg SUBCUT Q20M PRN #1 ea 08/19/20 injection insulin glargine 100 unit/mL 30 unit SUBCUT QPM #10 ml 08/19/20 subcutaneous solution insulin glargine 100 unit/mL 35 unit SUBCUT QAM #10 ml 08/19/20 subcutaneous solution insulin lispro 100 unit/mL 7 unit SUBCUT TID #10 ml 08/19/20 subcutaneous solution insulin syr/ndl U100 half ida 0.3 #100 ea 08/19/20 mL 30 gauge x 5/16" midodrine 10 mg tablet 10 mg PO TID #270 tab 08/19/20 Allergies Allergy/AdvReac Type Severity Reaction Status Date / Time phenytoin [From Dilantin] AdvReac Severe Unresponsiv Verified 09/02/20 15:21 e Review of Systems ROS ROS Narrative: Narrative: PFSH Narrative Patient History Narrative: Narrative: Medical/Surgical/Family History All Active Problems (Updated 09/02/20 @ 19:57 by Theodore Stewart DO) Pneumonia (Acute) Colitis (Acute) Acute pericardial effusion (Acute) Acute adrenal insufficiency (Acute) Hemoptysis (Acute) Acute hyperglycemia (Acute) COVID-19 vaccine dose declined (Acute) High arches (Acute) Diabetic ketoacidosis (Acute) Hemorrhoid thrombosis (Acute) Osmotic diarrhea (Acute) Acute hyperglycemia (Acute) 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) Labile mood (Acute) Blood glucose labile (Acute) Diabetes mellitus, insulin dependent (IDDM), uncontrolled (Acute) Adrenal insufficiency (Ghulam's disease) (Acute) Hypoglycemia unawareness associated with type 2 diabetes mellitus (Acute) Hypotension, chronic (Acute) Diabetes mellitus type 1.5, managed as type 1 (Acute) CVA (cerebral vascular accident) (Acute ~11/2018) Myocardial infarction (Acute ~04/2018) Tobacco dependence (Acute) Flu vaccine need (Acute) Myocardial infarction (Acute) Stroke due to embolism (Acute) Visual changes (Acute) Proteinuria due to type 2 diabetes mellitus (Acute) Adrenal insufficiency (Acute) Advance care planning (Acute) No pertinent past surgical history (Chronic) Arthritis (Chronic) Hypothyroidism (Chronic) Anemia (Chronic) DKA (diabetic ketoacidoses) (Chronic) Hypotension (Chronic) Type 2 diabetes mellitus (Chronic) Medical History (Updated 09/02/20 @ 19:57 by Theodore Stewart DO) Anemia Arthritis CVA (cerebral vascular accident) (~11/2018) DKA (diabetic ketoacidoses) Hypotension Hypothyroidism Myocardial infarction (~04/2018) Type 2 diabetes mellitus Currently takes Humalog 70/30 insulin, 50 units twice daily. Unresponsive episode (~12/2018) Surgical History No pertinent past surgical history Family History Uncle Diabetes mellitus Grandmother Diabetes mellitus Hypertension Mother Hypertension Social History Smoking Status: Current every day smoker Alcohol Intake Frequency: does not drink Substance Use: does not use Exam Narrative Narrative: Narrative: General Limitations: no limitations and other (The patient is slender and cachectic appearing.) Course Vital Signs Vital signs: Vital Signs Temperature 98.6 F 09/02/20 15:19 Pulse Rate 96 H 09/02/20 15:19 Respiratory Rate 20 09/02/20 15:19 Blood Pressure 85/65 09/02/20 15:19 Pulse Oximetry (%) 97 09/02/20 15:19 Temperature 98.6 F 09/02/20 15:19 Pulse Rate 93 H 09/02/20 19:31 Respiratory Rate 14 09/02/20 19:31 Blood Pressure 96/61 09/02/20 19:31 Pulse Oximetry (%) 97 09/02/20 19:31 MDM MDM Narrative Medical decision making narrative: Narrative: Labs came back he had no leukocytosis the chemistry also did not look fairly abnormal as is right around his baseline mild elevation in his glucose which is normal for him due to his diabetes. Negative lactate. No signs of sepsis or severe sepsis. CT of the chest abdomen pelvis unfortunately the infiltration of the IV cause for there to be no contrast we did do an x-ray of the humerus which did show contrast in the arm radiology did review and said just warm compresses and elevation and will dissipate. CT read as possible pericardial effusion mild to moderate said it could indicate hemorrhage or infection I did speak with the bead wrapper Dr. Armendariz at [facility] spoke with him about the case he says that small he would not even recommend an echo in the hospital and they would try to do an outpatient echocardiogram and follow-up with cardiology which is what he recommends to get done. He said there is nothing emergent or urgent that needs to get done with that finding on CAT scan. There is possible lingular and posterior lobe pneumonia as well as possible colitis, start patient on Zosyn. Due to the patient's weakness as well as the adrenal insufficiency I am worried he may fail outpatient treatment so we will go ahead and keep him in the hospital for IV antibiotics and continued steroids. I spoke with Dr. Villanueva who agreed to admit the patient to their service. Lab Data Result diagrams: 09/02/20 16:20 04/14/21 16:19 Labs: Lab Results 09/02/20 09/02/20 09/02/20 Range/Units 16:17 16:19 16:20 WBC 4.5 (4.5-11.0) K/mcL RBC 5.01 (4.50-5.90) M/mcL Hgb 15.5 (13.5-16.5) g/dL Hct 44.7 (41.0-55.0) % MCV 89.2 (80.0-100.0) fL MCH 30.9 (26.0-34.0) pg MCHC 34.7 (31.0-36.0) g/dL RDW 13.2 (11.5-14.5) % Plt Count 246 (140-440) K/mcL MPV 10.7 H (7.4-10.4) fL Neut % (Auto) 61.9 (38.0-78.0) % Lymph % (Auto) 22.5 (15.0-49.0) % [place] % (Auto) 14.8 H (1.0-12.0) % Eos % (Auto) 0.4 (0.0-7.0) % Baso % (Auto) 0.4 (0.0-2.0) % Lymph # (Auto) 1.02 L (1.50-4.80) K/mcL [place] # (Auto) 0.67 (0.10-0.90) K/mcL Eos # (Auto) 0.02 (0.00-0.70) K/mcL Baso # (Auto) 0.02 (0.00-0.20) K/mcL Absolute Neutrophils 2.80 (1.80-8.00) K/mcL VBG Lactic Acid (0.5-2.0) mmol/L Sodium 132 L (133-145) mmol/L Potassium 3.5 (3.3-5.1) mmol/L Chloride 99 (96-108) mmol/L Carbon Dioxide 21 L (22-30) mmol/L Anion Gap 12.0 (8.0-16.0) BUN 14 (6-20) mg/dL Creatinine 1.3 H (0.7-1.2) mg/dL GFR Calculation 63 Glucose 345 H (70-105) mg/dL Calcium 9.7 (8.6-10.4) mg/dL Total Bilirubin 0.4 (0.1-1.0) mg/dL AST 87 H (<40) U/L ALT 135 H (<40) U/L Alkaline Phosphatase 116 (39-117) U/L Total Protein 8.2 (5.9-8.4) gm/dL Albumin 5.1 (3.2-5.2) gm/dL Globulin 3.1 (2.2-3.7) gm/dL Albumin/Globulin Ratio 1.6 (1.0-2.3) Urine Color Yellow Urine Appearance Hazy A (Clear) Urine pH 6.0 (5.0-9.0) Ur Specific [place] 1.028 (1.000-1.035) Urine Protein 100 A (Negative) mg/dL Urine Glucose (UA) >=500 A (Negative) mg/dL Urine Ketones 80 A (Negative) mg/dL Urine Occult Blood 0.03 (Negative) mg/dL Urine Nitrate Negative (Negative) Urine Bilirubin Negative (Negative) mg/dL Urine Urobilinogen Negative mg/dL Ur Leukocyte Esterase Negative (Negative) /ug Urine RBC 1 (0-3) /hpf Urine WBC 2 (0-4) /hpf Ur Squamous Epith Cells 1 (0-4) /hpf Calcium Oxalate Crystal Few A (None) /hpf Urine Bacteria None (0) /hpf Granular Casts 8 H (0-0) /lph Urine Mucus Few A (None) /hpf Ur Culture Indicated? No 09/02/20 Range/Units 16:43 WBC (4.5-11.0) K/mcL RBC (4.50-5.90) M/mcL Hgb (13.5-16.5) g/dL Hct (41.0-55.0) % MCV (80.0-100.0) fL MCH (26.0-34.0) pg MCHC (31.0-36.0) g/dL RDW (11.5-14.5) % Plt Count (140-440) K/mcL MPV (7.4-10.4) fL Neut % (Auto) (38.0-78.0) % Lymph % (Auto) (15.0-49.0) % [place] % (Auto) (1.0-12.0) % Eos % (Auto) (0.0-7.0) % Baso % (Auto) (0.0-2.0) % Lymph # (Auto) (1.50-4.80) K/mcL [place] # (Auto) (0.10-0.90) K/mcL Eos # (Auto) (0.00-0.70) K/mcL Baso # (Auto) (0.00-0.20) K/mcL Absolute Neutrophils (1.80-8.00) K/mcL VBG Lactic Acid 1.1 (0.5-2.0) mmol/L Sodium (133-145) mmol/L Potassium (3.3-5.1) mmol/L Chloride (96-108) mmol/L Carbon Dioxide (22-30) mmol/L Anion Gap (8.0-16.0) BUN (6-20) mg/dL Creatinine (0.7-1.2) mg/dL GFR Calculation Glucose (70-105) mg/dL Calcium (8.6-10.4) mg/dL Total Bilirubin (0.1-1.0) mg/dL AST (<40) U/L ALT (<40) U/L Alkaline Phosphatase (39-117) U/L Total Protein (5.9-8.4) gm/dL Albumin (3.2-5.2) gm/dL Globulin (2.2-3.7) gm/dL Albumin/Globulin Ratio (1.0-2.3) Urine Color Urine Appearance (Clear) Urine pH (5.0-9.0) Ur Specific [place] (1.000-1.035) Urine Protein (Negative) mg/dL Urine Glucose (UA) (Negative) mg/dL Urine Ketones (Negative) mg/dL Urine Occult Blood (Negative) mg/dL Urine Nitrate (Negative) Urine Bilirubin (Negative) mg/dL Urine Urobilinogen mg/dL Ur Leukocyte Esterase (Negative) /ug Urine RBC (0-3) /hpf Urine WBC (0-4) /hpf Ur Squamous Epith Cells (0-4) /hpf Calcium Oxalate Crystal (None) /hpf Urine Bacteria (0) /hpf Granular Casts (0-0) /lph Urine Mucus (None) /hpf Ur Culture Indicated? Discharge Plan Patient/Caregiver Discharge Instructions Pt seen by DISCOVERY GUIDE/PA only: No Clinical Impression: Pneumonia, Colitis, Acute pericardial effusion, Acute adrenal insufficiency Patient Disposition: Xfer As Outpt/Obs ([facility]) Condition: Fair Follow up with: Ken Ni MD [Primary Care Provider] - Prescriptions: No Action (DME) Blood Glucose Test Strip See Rx Instructions .ROUTE .MEDSUPPLY Qty: 100 RF: 9 olanzapine 5 mg tablet 10 mg PO QHS Qty: 90 RF: 0 clopidogrel [Plavix] 75 mg tablet 75 mg PO QDAY Qty: 30 RF: 6 potassium chloride 10 mEq capsule, extended release 10 meq PO QDAY Qty: 30 RF: 6 gabapentin 400 mg capsule 400 mg PO BID Qty: 60 RF: 6 ibuprofen 200 mg tablet 400 mg PO TID RF: 0 fludrocortisone 0.1 mg tablet 0.1 mg PO QDAY Qty: 90 RF: 3 levothyroxine 200 mcg capsule 200 mcg PO QDAY Qty: 90 RF: 3 (DME) blood pressure monitor [Blood Pressure Kit] Kit See Rx Instructions .ROUTE .MEDSUPPLY Qty: 1 RF: 0 pravastatin 80 mg tablet 80 mg PO QHS Qty: 30 RF: 6 midodrine 10 mg tablet 10 mg PO TID Qty: 270 RF: 3 Lantus U-100 Insulin 100 unit/mL solution 35 unit subcut QAM Qty: 10 RF: 3 Lantus U-100 Insulin 100 unit/mL solution 30 unit subcut QPM Qty: 10 RF: 3 insulin lispro [Humalog U-100 Insulin] 100 unit/mL solution 7 unit subcut TID Qty: 10 RF: 12 Glucagon (HCl) Emergency Kit 1 mg recon soln 1 mg subcut Q20M PRN (Reason: hypoglycemia) Qty: 1 RF: 12 (DME) insulin syr/ndl U100 half ida 0.3 mL 30 gauge x 5/16" syringe See Rx Instructions .ROUTE .MEDSUPPLY Qty: 100 RF: 12 aspirin 81 mg Tablet,Delayed Release (Dr/Ec) 81 mg PO QDAY RF: 0 cholecalciferol (vitamin D3) [Vitamin D3] 50 mcg (2,000 unit) Capsule 50 mcg PO QDAY RF: 0 (DME) blood-glucose meter [Blood Glucose Monitoring] Kit MISCELLANEOUS RF: 0 gabapentin 800 mg Tablet 800 mg PO QHS RF: 0 insulin lispro [Humalog U-100 Insulin] 100 unit/mL solution 1 sliding scale dose SUB-Q USEASDIRECTD Qty: 30 RF: 6
--- NOTE | 2020-09-02 20:05 | Internal Med History&Physical ---
HPI History of Present Illness Patient information: Note initiated : 09/02/20 at 8:03 pm Service Date, if different from initiated Date: [] Patient: Clovis Ureña a 50 y/o M admitted on for weakness, elevated blood sugar, low BP. Chief Complaint: [] History of present illness: Mr. Ureña is a 50 year old with a known history of Adrenal insufficiency,diabetes/chronic diarrhea, recurrent DKA/CAD/HTN and neuropathy who presented to the ER with increasing weakness over the last week along with loss of appetite/increasing shortness of breath, cough and hemoptysis . Patient denies associated fever or shaking chills . His blood sugars have been very erratic ranging from 300-5 100s. He was seen at the PCP office and was referred to the ER with low blood pressure and hemoptysis evaluation. Initial work-up was consistent with multifocal chest infiltrates/distal colitis, elevated creatinine 1.3 . Patient started on antibiotic coverage after cultures were drawn. Hospitalist service was consulted for admission At the time of my evaluation patient is alert and oriented. He was able to answer most the question endorse history as above. He denies headache, photophobia, myalgia, rash, dysuria, hematuria. He denies sick contacts, denies URI symptoms or exposure to Covid patients. Review of systems 10 point review system was performed and is negative except for ones discussed above PFSH PFSH All Active Problems (Updated 09/02/20 @ 19:57 by Theodore Stewart DO) Pneumonia (Acute) Colitis (Acute) Acute pericardial effusion (Acute) Acute adrenal insufficiency (Acute) Hemoptysis (Acute) Acute hyperglycemia (Acute) COVID-19 vaccine dose declined (Acute) [place] (Acute) Diabetic ketoacidosis (Acute) Hemorrhoid thrombosis (Acute) Osmotic diarrhea (Acute) Acute hyperglycemia (Acute) 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) Labile mood (Acute) Blood glucose labile (Acute) Diabetes mellitus, insulin dependent (IDDM), uncontrolled (Acute) Adrenal insufficiency (Ghulam's disease) (Acute) Hypoglycemia unawareness associated with type 2 diabetes mellitus (Acute) Hypotension, chronic (Acute) Diabetes mellitus type 1.5, managed as type 1 (Acute) CVA (cerebral vascular accident) (Acute ~11/2018) Myocardial infarction (Acute ~04/2018) Tobacco dependence (Acute) Flu vaccine need (Acute) Myocardial infarction (Acute) Stroke due to embolism (Acute) Visual changes (Acute) Proteinuria due to type 2 diabetes mellitus (Acute) Adrenal insufficiency (Acute) Advance care planning (Acute) No pertinent past surgical history (Chronic) Arthritis (Chronic) Hypothyroidism (Chronic) Anemia (Chronic) DKA (diabetic ketoacidoses) (Chronic) Hypotension (Chronic) Type 2 diabetes mellitus (Chronic) Medical History (Updated 09/02/20 @ 19:57 by Theodore Stewart DO) Anemia Arthritis CVA (cerebral vascular accident) (~11/2018) DKA (diabetic ketoacidoses) Hypotension Hypothyroidism Myocardial infarction (~04/2018) Type 2 diabetes mellitus Currently takes Humalog 70/30 insulin, 50 units twice daily. Unresponsive episode (~12/2018) Surgical History No pertinent past surgical history Family History Uncle Diabetes mellitus Grandmother Diabetes mellitus Hypertension Mother Hypertension Social History marital status: occupational status: unemployed alcohol intake frequency: does not drink substance use type: does not use MEDS/ALLERGIES Home Medications and Allergies Home Medications Medication Instructions Recorded Confirmed Type aspirin 81 mg PO QDAY 03/04/20 09/02/20 History cholecalciferol (vitamin D3) 50 mcg PO QDAY 03/04/20 09/02/20 History [Vitamin D3] blood-glucose meter [Blood Glucose 03/05/20 09/02/20 History Monitoring] clopidogrel 75 mg tablet 75 mg PO QDAY #30 tab 04/15/20 09/02/20 Rx gabapentin 400 mg capsule 400 mg PO BID #60 cap 04/15/20 09/02/20 Rx potassium chloride 10 mEq 10 meq PO QDAY #30 cap 04/15/20 09/02/20 Rx capsule,extended release ibuprofen 200 mg tablet 400 mg PO TID tab 05/21/20 09/02/20 History gabapentin 800 mg PO QHS 06/25/20 09/02/20 History insulin lispro [Humalog U-100 1 sliding scale dose SUB-Q 06/26/20 09/02/20 Rx Insulin] USEASDIRECTD #30 ml blood pressure monitor #1 each 07/01/20 09/02/20 Rx fludrocortisone 0.1 mg tablet 0.1 mg PO QDAY #90 tab 07/01/20 09/02/20 Rx levothyroxine 200 mcg capsule 200 mcg PO QDAY #90 cap 07/01/20 09/02/20 Rx blood sugar diagnostic #100 ea 07/23/20 09/02/20 Rx olanzapine 5 mg tablet 10 mg PO QHS #90 tab 07/24/20 09/02/20 Rx pravastatin 80 mg tablet 80 mg PO QHS #30 tab 08/05/20 09/02/20 Rx glucagon HCl 1 mg solution for 1 mg SUBCUT Q20M PRN #1 ea 08/19/20 09/02/20 Rx injection insulin glargine 100 unit/mL 30 unit SUBCUT QPM #10 ml 08/19/20 09/02/20 Rx subcutaneous solution insulin glargine 100 unit/mL 35 unit SUBCUT QAM #10 ml 08/19/20 09/02/20 Rx subcutaneous solution insulin lispro 100 unit/mL 7 unit SUBCUT TID #10 ml 08/19/20 09/02/20 Rx subcutaneous solution insulin syr/ndl U100 half ida 0.3 #100 ea 08/19/20 09/02/20 Rx mL 30 gauge x 5/16" midodrine 10 mg tablet 10 mg PO TID #270 tab 08/19/20 09/02/20 Rx Allergies Allergy/AdvReac Type Severity Reaction Status Date / Time phenytoin [From Dilantin] AdvReac Severe Unresponsiv Verified 09/02/20 15:21 e EXAM Constitutional Vitals: Temp Pulse Resp BP Pulse Ox 98.6 F 86 16 92/59 97 09/02/20 15:19 09/02/20 19:46 09/02/20 19:46 09/02/20 19:46 09/02/20 19:46 patient anxious but alert and oriented Head normocephalic Oral cavity moist No ear nose discharge Eye movement symmetrical Neck supple no lymphadenopathy S1-S2 regular Minimally nonlabored breathing Nondistended nontender abdomen Lower extremity no cyanosis clubbing or joint swelling Skin no suspicious lesion Psych anxious but alert cooperative Neuro moving all 4 extremities, normal higher functions DATA Data Completed and Pending Labs: Labs from last 24 hours 09/02/20 09/02/20 09/02/20 16:43 16:20 16:19 WBC 4.5 RBC 5.01 Hgb 15.5 Hct 44.7 MCV 89.2 MCH 30.9 MCHC 34.7 RDW 13.2 Plt Count 246 MPV 10.7 H Neut % (Auto) 61.9 Lymph % (Auto) 22.5 [place] % (Auto) 14.8 H Eos % (Auto) 0.4 Baso % (Auto) 0.4 Lymph # (Auto) 1.02 L [place] # (Auto) 0.67 Eos # (Auto) 0.02 Baso # (Auto) 0.02 Absolute Neutrophils 2.80 VBG Lactic Acid 1.1 Sodium 132 L Potassium 3.5 Chloride 99 Carbon Dioxide 21 L Anion Gap 12.0 BUN 14 Creatinine 1.3 H GFR Calculation 63 Glucose 345 H Calcium 9.7 Total Bilirubin 0.4 AST 87 H ALT 135 H Alkaline Phosphatase 116 Total Protein 8.2 Albumin 5.1 Globulin 3.1 Albumin/Globulin Ratio 1.6 Urine Color Urine Appearance Urine pH Ur Specific [place] Urine Protein Urine Glucose (UA) Urine Ketones Urine Occult Blood Urine Nitrate Urine Bilirubin Urine Urobilinogen Ur Leukocyte Esterase Urine RBC Urine WBC Ur Squamous Epith Cells Calcium Oxalate Crystal Urine Bacteria Granular Casts Urine Mucus Ur Culture Indicated? 09/02/20 16:17 WBC RBC Hgb Hct MCV MCH MCHC RDW Plt Count MPV Neut % (Auto) Lymph % (Auto) [place] % (Auto) Eos % (Auto) Baso % (Auto) Lymph # (Auto) [place] # (Auto) Eos # (Auto) Baso # (Auto) Absolute Neutrophils VBG Lactic Acid Sodium Potassium Chloride Carbon Dioxide Anion Gap BUN Creatinine GFR Calculation Glucose Calcium Total Bilirubin AST ALT Alkaline Phosphatase Total Protein Albumin Globulin Albumin/Globulin Ratio Urine Color Yellow Urine Appearance Hazy A Urine pH 6.0 Ur Specific [place] 1.028 Urine Protein 100 A Urine Glucose (UA) >=500 A Urine Ketones 80 A Urine Occult Blood 0.03 Urine Nitrate Negative Urine Bilirubin Negative Urine Urobilinogen Negative Ur Leukocyte Esterase Negative Urine RBC 1 Urine WBC 2 Ur Squamous Epith Cells 1 Calcium Oxalate Crystal Few A Urine Bacteria None Granular Casts 8 H Urine Mucus Few A Ur Culture Indicated? No A/P Narrative A/P Narrative: * COVID-19 pneumonia-start steroids. Currently not on oxygen. Start remdesivir if worsening hypoxia, continue empiric antibiotic coverage for community- acquired pathogens including anaerobes. ST eval/aspiration precautions/pulmonary toilet. Maintain precautions * Sigmoid colitis continue Flagyl/Rocephin. Liquid diet * GUS-creatinine 1.3 likely secondary to volume depletion. Continue crystalloids and monitor renal function, avoid nephrotoxins/NSAIDs * Pericardial effusion-ER physician discussed with cardiology, no indication for urgent pericardiocentesis. Echocardiogram ordere * Weakness and deconditioning-aggressive PT OT * DM type II continue basal prandial insulin/CC diet * History of CAD continue aspirin/Plavix/statin * Adrenal insufficiency with orthostatic hypotension continue hydrocortisone/midodrine/fludrocortisone * Hypothyroid continue toxin * Prophylaxis Heparin Plan * Inpatient admission * COVID-19 precautions * Steroids/antibiotic coverage * Pancultures * Hydrocortisone * Pre-existing medical management conditions management as above * PT OT nutrition support * Discharge plannin Time Spent With Patient Time: Total time spent is greater than 50% in coordination of care (as docum ented) at patient's floor/unit and/or counseling patient:
[2020-09-02] MEDS ORDERED: GABAPENTIN 400 MG CAPSULE PO SCH (21:00)
[2020-09-02] MEDS ORDERED: MIDODRINE HCL 10 MG TABLET PO SCH (21:00)
[2020-09-02] MEDS ORDERED: INSULIN GLARGINE, HUMAN 1 UNIT/0.01 ML SQ SCH (21:00)
[2020-09-02] MEDS ORDERED: OLANZapine 5 MG TABLET PO SCH (21:00)
[2020-09-02] MEDS ORDERED: ACETAMINOPHEN 650 MG/65 ML BAG IV PRN (21:16)
[2020-09-02] MEDS ORDERED: ONDANSETRON 4 MG/2 ML VIAL IV PRN (21:16)
[2020-09-02] MEDS ORDERED: ACETAMINOPHEN 325 MG TABLET PO PRN (21:16)
[2020-09-02] MEDS ORDERED: MAGNESIUM SULFATE 2 GM/50 ML BAG IV PRN (21:16)
[2020-09-02] MEDS ORDERED: DEXTROSE 50% 50 ML VIAL IV PRN (21:16)
[2020-09-02] MEDS ORDERED: POTASSIUM CHLORIDE 40 MEQ in DEXTROSE 5% IN WATER 500 ML IV PRN (21:16)
[2020-09-02] MEDS ORDERED: BISACODYL 10 MG SUPP.RECT PR PRN (21:16)
[2020-09-02] MEDS ORDERED: ONDANSETRON 4 MG ODT TABLET SL PRN (21:16)
[2020-09-02] MEDS ORDERED: MELATONIN 3 MG TABLET PO PRN (21:16)
[2020-09-02] MEDS ORDERED: DEXTROSE 31 GM ORAL.SUSP PO PRN (21:16)
[2020-09-02] MEDS ORDERED: POLYETHYLENE GLYCOL 3350 17 GM PACKET PO PRN (21:16)
[2020-09-02] MEDS ORDERED: INSULIN LISPRO 1 UNIT/0.01 ML UNIT SQ ONE (21:27)
[2020-09-02] MEDS: INSULIN LISPRO 1 UNIT/0.01 ML UNIT SQ SCH (21:29)
[2020-09-02] MEDS: 0.9 % SODIUM CHLORIDE 10 ML SYRINGE IV SCH (21:29)
[2020-09-02] MEDS: 0.9 % SODIUM CHLORIDE 1,000 ML IV SCH (21:30)
[2020-09-02] MEDS ORDERED: INSULIN GLARGINE, HUMAN 1 UNIT/0.01 ML SQ ONE (21:45)
[2020-09-02] MEDS: DOCUSATE SODIUM 100 MG CAPSULE PO SCH (22:01)
[2020-09-02] MEDS: SENNOSIDES/DOCUSATE SODIUM 1 TAB TABLET PO SCH (22:02)
[2020-09-02] MEDS: metroNIDAZOLE 500 MG/100 ML BAG IV SCH (22:16)
[2020-09-02] MEDS: CYANOCOBALAMIN (VITAMIN B-12) 500 MCG TABLET PO SCH (22:19)
[2020-09-02] MEDS: HYDROCORTISONE SOD SUCC 100 MG VIAL IV SCH (22:20)
[2020-09-02] MEDS: HEPARIN 5,000 UNIT/ML VIAL SQ SCH (22:20)
[2020-09-02] MEDS: AZITHROMYCIN 500 MG in DEXTROSE 5% IN WATER 250 ML IV SCH (23:34)
[2020-09-02] MEDS: POTASSIUM CHLORIDE 20 MEQ PACKET PO PRN (23:35)
[2020-09-03] MEDS: 0.9 % SODIUM CHLORIDE 10 ML SYRINGE IV SCH ×3 (06:03→20:56)
[2020-09-03] MEDS: metroNIDAZOLE 500 MG/100 ML BAG IV SCH ×3 (06:03→22:53)
[2020-09-03] MEDS: HYDROCORTISONE SOD SUCC 100 MG VIAL IV SCH ×3 (06:07→22:53)
[2020-09-03 06:43] LABS: Basophils # (Auto) 0.01 K/mcL (0.00-0.20); Basophils % (Auto) 0.2 % (0.0-2.0); Eosinophils # (Auto) 0 K/mcL (0.00-0.70); Eosinophils % (Auto) 0 % (0.0-7.0); Hematocrit 33.8 % (41.0-55.0); Hemoglobin 11.9 g/dL (13.5-16.5); Lymphocytes # (Auto) 0.61 K/mcL (1.50-4.80); Lymphocytes % (Auto) 13.3 % (15.0-49.0); Mean Cell Volume 88.5 fL (80.0-100.0); Mean Corpuscular HGB Conc 35.2 g/dL (31.0-36.0); Mean Platelet Volume 10.5 fL (7.4-10.4); Monocytes % (Auto) 15.3 % (1.0-12.0); Neutrophils % (Auto) 71.2 % (38.0-78.0); Platelet Count 178 K/mcL (140-440); RBC 3.82 M/mcL (4.50-5.90); Red Cell Distribution Width 13.2 % (11.5-14.5); WBC 4.6 K/mcL (4.5-11.0)
[2020-09-03 07:04] LABS: ALT/SGPT 73 U/L (<40); AST/SGOT 38 U/L (<40); Albumin 3.3 gm/dL (3.2-5.2); Albumin/Globulin Ratio 1.3 (1.0-2.3); Alkaline Phosphatase 73 U/L (39-117); Bilirubin,Direct < 0.2 mg/dL (0-0.3); Bilirubin,Total < 0.2 mg/dL (0.1-1.0); Blood Urea Nitrogen 10 mg/dL (6-20); Calcium 8.4 mg/dL (8.6-10.4); Carbon Dioxide 22 mmol/L (22-30); Chloride 108 mmol/L (96-108); Globulin 2.5 gm/dL (2.2-3.7); Glomerular Filtration Rate 102; Glucose 289 mg/dL (70-105); Lactate Dehydrogenase 173 U/L (135-225); Phosphorous 1.9 mg/dL (2.5-4.5); Triglycerides 127 mg/dL (<150); Uric Acid 2.9 mg/dL (2.5-8.0)
[2020-09-03] MEDS: PANTOPRAZOLE 40 MG TABLET PO SCH (07:10)
[2020-09-03] MEDS: MIDODRINE 5 MG TABLET PO SCH ×3 (07:10→17:48)
[2020-09-03] MEDS: LEVOTHYROXINE 100 MCG TABLET PO SCH (07:10)
[2020-09-03] MEDS: INSULIN LISPRO 1 UNIT/0.01 ML UNIT SQ SCH ×5 (08:05→20:54)
[2020-09-03] MEDS: GABAPENTIN 400 MG CAPSULE PO SCH ×2 (08:06→20:54)
[2020-09-03] MEDS: CYANOCOBALAMIN (VITAMIN B-12) 500 MCG TABLET PO SCH ×2 (08:06→20:54)
[2020-09-03] MEDS: ASPIRIN 81 MG TAB.CHEW PO SCH (08:07)
[2020-09-03] MEDS: MULTIVIT,THER IRON,CA,FA & MIN 1 TABLET PO SCH (08:07)
[2020-09-03] MEDS: CLOPIDOGREL 75 MG TABLET PO SCH (08:07)
[2020-09-03] MEDS: DOCUSATE SODIUM 100 MG CAPSULE PO SCH ×2 (08:08→19:38)
[2020-09-03] MEDS: HEPARIN 5,000 UNIT/ML VIAL SQ SCH ×2 (08:08→20:54)
[2020-09-03] MEDS: NEUTRA PHOS 1 PACKET PO SCH ×2 (08:54→20:53)
[2020-09-03] MEDS: FLUDROCORTISONE 0.1 MG TABLET PO SCH (08:54)
[2020-09-03] MEDS: cefTRIAXone 2 GM in DEXTROSE 5% IN WATER 50 ML IV SCH (08:54)
[2020-09-03] MEDS: POTASSIUM CHLORIDE 20 MEQ PACKET PO PRN (08:54)
[2020-09-03] MEDS ORDERED: LEVOTHYROXINE 200 MCG PO SCH (09:00)
[2020-09-03] MEDS ORDERED: DEXAMETHASONE 4 MG TABLET PO SCH (09:00)
[2020-09-03] MEDS ORDERED: CLOPIDOGREL 75 MG TABLET PO SCH (09:00)
[2020-09-03] MEDS ORDERED: FLUDROCORTISONE 0.1 MG TABLET PO SCH (09:00)
[2020-09-03] MEDS ORDERED: INSULIN GLARGINE, HUMAN 1 UNIT/0.01 ML SQ SCH ×3 (09:00→21:00)
--- NOTE | 2020-09-03 11:06 | Internal Med Progress Note ---
SUBJECTIVE Subjective Patient information: Note initiated : 09/03/20 at 11:02 am Service Date, if different from initiated Date: [] Patient: Clovis Ureña 50 y/o M admitted on 09/02/20 for weakness, elevated blood sugar, low BP. Chief Complaint: [] Interval history: Mr. Ureña is a 50 year old with a known history of Adrenal insufficiency,diabetes/chronic diarrhea, recurrent DKA/CAD/HTN and neuropathy who presented to the ER with increasing weakness over the last week along with loss of appetite/increasing shortness of breath, cough and hemoptysis . Patient denies associated fever or shaking chills . His blood sugars have been very erratic ranging from 300-5 100s. He was seen at the PCP office and was referred to the ER with low blood pressure and hemoptysis evaluation. Initial work-up was consistent with multifocal chest infiltrates/distal colitis, elevated creatinine 1.3 . Patient started on antibiotic coverage after cultures were drawn. Hospitalist service was consulted for admission At the time of my evaluation patient is alert and oriented. He was able to answer most the question endorse history as above. He denies headache, photophobia, myalgia, rash, dysuria, hematuria. He denies sick contacts, denies URI symptoms or exposure to Covid patients. 09/03-blood sugars poorly controlled around mid 400. Increased Lantus to 40 twice daily/added sitagliptin/high sliding scale insulin. COVID-19 positive. Start dexamethasone. Currently on room air. No indication for remdesivir as yet. On antibiotic coverage. Cultures negative so far. Sodium 137, potassium 3.4 on replacement, creatinine 1.8, phosphorus 1.9, procalcitonin 0.13 Constitutional Vitals: Vital Signs Temp Pulse Resp BP Pulse Ox 98 F 75 16 117/61 94 09/03/20 07:19 09/03/20 07:19 09/03/20 07:19 09/03/20 07:19 09/03/20 07:19 Period Temp Pulse Resp BP Sys/[place]andez Pulse Ox Last 24 Hr 97.3 F-98.6 F 74-96 13-21 83-117/54-68 94-99 Intake and Output 09/02/20 09/03/20 09/03/20 21:59 05:59 13:59 Intake Total 1999 750 650 Balance 1999 750 650 Weight 67.449 kg alert oriented Nonlabored breathing No anxiety Intake & Output: Intake & Output 09/02/20 09/03/20 09/03/20 21:59 05:59 13:59 Intake Total 1999 750 650 Balance 1999 750 650 Weight 67.449 kg Intake: IV 1999 350 150 Sodium Chloride 0.9% 2,000 ml @ 2000 Wide Open IV .Q0M ONE Rx#: [id number] Zithromax 500 mg In Dextrose 5% 250 in Water 250 ml @ 250 mls/hr IV Q24H [facility] Rx#:[id number] Rocephin 2 gm In Dextrose 5% in 50 Water 50 ml @ 100 mls/hr IV Q24H [facility] Rx#:[id number] Oral 400 500 Other: Meal Breakfast Percent of Meal Consumed 100% Feeding Ability Independent Stool Size Small Small Stool Color Brown Stool Consistency Loose Loose # Voids 1 # Bowel Movements 1 1 3 OBJ DATA Labs CBC & Chem 7: 09/03/20 05:20 09/03/20 05:20 Labs: Abnormal Lab Results 09/03/20 09/03/20 09/02/20 05:20 05:20 21:16 RBC 3.82 L Hgb 11.9 L Hct 33.8 L MPV 10.5 H Lymph % (Auto) 13.3 L [place] % (Auto) 15.3 H Lymph # (Auto) 0.61 L Sodium Carbon Dioxide Anion Gap 7.0 L Creatinine Glucose 289 H Calcium 8.4 L Phosphorus 1.9 L AST ALT 73 H Total Protein 5.8 L Procalcitonin 0.13 H Urine Appearance Urine Protein Urine Glucose (UA) Urine Ketones Calcium Oxalate Crystal Granular Casts Urine Mucus 09/02/20 09/02/20 09/02/20 16:20 16:19 16:17 RBC Hgb Hct MPV 10.7 H Lymph % (Auto) [place] % (Auto) 14.8 H Lymph # (Auto) 1.02 L Sodium 132 L Carbon Dioxide 21 L Anion Gap Creatinine 1.3 H Glucose 345 H Calcium Phosphorus AST 87 H ALT 135 H Total Protein Procalcitonin Urine Appearance Hazy A Urine Protein 100 A Urine Glucose (UA) >=500 A Urine Ketones 80 A Calcium Oxalate Crystal Few A Granular Casts 8 H Urine Mucus Few A Meds: Medications Acetaminophen (Acetaminophen 325 Mg Tablet) 650 mg PO Q4-6HP PRN; Protocol PRN Reason: Per Pain Protocol/Fever > 101 Aspirin (Aspirin 81 Mg Tab.Chew) 81 mg PO DAILY [facility] Last Admin: 09/03/20 08:07 Dose: 81 mg Documented by: Atorvastatin Calcium (Atorvastatin 20 Mg Tablet) 20 mg PO HS [facility] Bisacodyl (Bisacodyl 10 Mg Supp.Rect) 10 mg AK Q2-3DAYS PRN PRN Reason: Constipation Clopidogrel Bisulfate (Clopidogrel 75 Mg Tablet) 75 mg PO QDAY [facility] Last Admin: 09/03/20 08:07 Dose: 75 mg Documented by: Cyanocobalamin (Cyanocobalamin (Vitamin B-12) 500 Mcg Tablet) 1,000 mcg PO BID [facility] Stop: 09/07/20 09:01 Last Admin: 09/03/20 08:06 Dose: 1,000 mcg Documented by: Dexamethasone (Dexamethasone 4 Mg Tablet) 6 mg PO DAILY [facility] Last Admin: 09/03/20 10:37 Dose: 6 mg Documented by: Dextrose (Dextrose 50% 50 Ml Vial) 0 ml IV UD PRN PRN Reason: Hypoglycemia Diagnostic Test (Pha) (Accu-Chek 1 Each Strip) 1 each FS ACHS [facility] Last Admin: 09/03/20 07:14 Dose: 1 each Documented by: Docusate Sodium (Docusate Sodium 100 Mg Capsule) 100 mg PO BID [facility] Last Admin: 09/03/20 08:08 Dose: Not Given Documented by: Fludrocortisone Acetate (Fludrocortisone 0.1 Mg Tablet) 0.1 mg PO QDAY [facility] Last Admin: 09/03/20 08:54 Dose: 0.1 mg Documented by: Gabapentin (Gabapentin 400 Mg Capsule) 400 mg PO BID [facility] Last Admin: 09/03/20 08:06 Dose: 400 mg Documented by: Glucose (Dextrose 31 Gm Oral.Susp) 15 gm PO PRN PRN PRN Reason: Hypoglycemia Heparin Sodium (Porcine) (Heparin 5,000 Unit/Ml Vial) 5,000 unit SQ Q12 [facility] Last Admin: 09/03/20 08:08 Dose: 5,000 unit Documented by: Hydrocortisone Sodium Succinate (Hydrocortisone Sod Succ 100 Mg Vial) 50 mg IV Q8 [facility] Last Admin: 09/03/20 06:07 Dose: 50 mg Documented by: Potassium Chloride 40 meq/ (Dextrose) 520 mls @ 130 mls/hr IV UD PRN PRN Reason: K+ = or < 3.5 Acetaminophen (Ofirmev) 650 mg in 65 mls @ 130 mls/hr IV Q6HP PRN; Protocol PRN Reason: Per Pain Protocol/Fever > 101 Magnesium Sulfate (Magnesium Sulfate) 2 gm in 50 mls @ 50 mls/hr IV UD PRN PRN Reason: MG = or < 1.7 Sodium Chloride (Sodium Chloride 0.9%) 1,000 mls @ 50 mls/hr IV .Q20H [facility] Stop: 09/05/20 09:15 Last Admin: 09/02/20 21:30 Dose: 50 mls/hr Documented by: Ceftriaxone Sodium 2 gm/ (Dextrose) 50 mls @ 100 mls/hr IV Q24H [facility]; Protocol Last Infusion: 09/03/20 09:15 Dose: Infused Documented by: Metronidazole (Flagyl) 500 mg in 100 mls @ 100 mls/hr IV Q8H [facility]; Protocol Last Infusion: 09/03/20 07:45 Dose: Infused Documented by: Azithromycin 500 mg/ Dextrose 250 mls @ 250 mls/hr IV Q24H [facility]; Protocol Stop: 09/04/20 23:59 Last Infusion: 09/03/20 00:35 Dose: Infused Documented by: Insulin Glargine (Insulin Glargine, Human 1 Unit/0.01 Ml) 40 unit SQ BID [facility] Insulin Human Lispro (Insulin Lispro 1 Unit/0.01 Ml Unit) 0 unit SQ ACHS [facility]; Protocol Iron Carb/Multivit/[place]/Folic Acid (Multivit,Ther Iron,Ca,Fa & Min 1 Tablet) 1 tab PO DAILY [facility] Last Admin: 09/03/20 08:07 Dose: 1 tab Documented by: Levothyroxine Sodium (Levothyroxine 100 Mcg Tablet) 200 mcg PO ACB [facility] Last Admin: 09/03/20 07:10 Dose: 200 mcg Documented by: Melatonin (Melatonin 3 Mg Tablet) 3 mg PO HSP PRN PRN Reason: Insomnia Midodrine (Midodrine 5 Mg Tablet) 10 mg PO TID@0800,1200,1700 [facility] Last Admin: 09/03/20 07:10 Dose: 10 mg Documented by: Olanzapine (Olanzapine 5 Mg Tablet) 10 mg PO QHS [facility] Ondansetron HCl (Ondansetron 4 Mg Odt Tablet) 4 mg SL Q4-6HP PRN; Protocol PRN Reason: Nausea And Vomiting Ondansetron HCl (Ondansetron 4 Mg/2 Ml Vial) 4 mg IV Q4-6HP PRN; Protocol PRN Reason: Nausea And Vomiting Pantoprazole Sodium (Pantoprazole 40 Mg Tablet) 40 mg PO QAMAC [facility] Last Admin: 09/03/20 07:10 Dose: 40 mg Documented by: Polyethylene Glycol (Polyethylene Glycol 3350 17 Gm Packet) 17 gm PO DAILYP PRN PRN Reason: Constipation Potassium Chloride (Potassium Chloride 20 Meq Packet) 40 meq PO DAILYP PRN PRN Reason: K+ < 3.5 Last Admin: 09/03/20 08:54 Dose: 40 meq Documented by: Potassium/Phosphorus/Sodium (Neutra Phos 1 Packet) 2 packet PO BID [facility] Last Admin: 09/03/20 08:54 Dose: 2 packet Documented by: Senna/Docusate Sodium (Sennosides/Docusate Sodium 1 Tab Tablet) 1 tab PO HS [facility] Last Admin: 09/02/20 22:02 Dose: Not Given Documented by: Sitagliptin Phosphate (Sitagliptin 100 Mg Tablet) 100 mg PO DAILY [facility] Sodium Chloride (0.9 % Sodium Chloride 10 Ml Syringe) 10 ml IV Q8 [facility] Last Admin: 09/03/20 06:03 Dose: Not Given Documented by: A/P Narrative A/P Narrative: * COVID-19 pneumonia without hypoxia-continue supportive treatment/COVID-19 precautions. PCR test pending. On empiric antibiotic coverage for community- acquired pathogens including anaerobes. ST eval/aspiration precautions/pulmonary toilet. * Sigmoid colitis continue Flagyl/Rocephin. Advance to CC diet * GUS-creatinine down from 1.3-> 0.8. Continue crystalloids * Low potassium and phosphorus on replacement as indicated * Pericardial effusion-ER physician discussed with cardiology, no indication for urgent pericardiocentesis. Echocardiogram awaited * Weakness and deconditioning-continue aggressive PT OT * Poorly controlled DM type II -uptitrate Lantus to 40 twice daily/high sliding scale/sitagliptin/CC diet * History of CAD continue aspirin/Plavix/statin * Adrenal insufficiency with orthostatic hypotension continue hydrocortisone/midodrine/fludrocortisone * Hypothyroid continue toxin * Prophylaxis Heparin Plan * COVID-19 precautions, steroid * Potassium and phosphorus replacement * Steroids/antibiotic coverage * Uptitrate basal prandial insulin * Pancultures * Hydrocortisone * Pre-existing medical management conditions management as above * PT OT nutrition support Time Spent With Patient Time: Total time spent is greater than 50% in coordination of care (as documented) at patient's floor/unit and/or counseling patient:
[2020-09-03] MEDS: sitaGLIPtin 100 MG TABLET PO SCH (11:54)
[2020-09-03] MEDS: AZITHROMYCIN 500 MG in DEXTROSE 5% IN WATER 250 ML IV SCH (14:30)
[2020-09-03] MEDS ORDERED: INSULIN REGULAR, HUMAN 1 UNIT/0.01 ML UNIT SQ ONE (15:22)
[2020-09-03 15:56] LABS: Glucose 310 mg/dL (70-105)
[2020-09-03] MEDS: 0.9 % SODIUM CHLORIDE 1,000 ML IV SCH (17:46)
[2020-09-03] MEDS: INSULIN GLARGINE, HUMAN 1 UNIT/0.01 ML SQ SCH (20:53)
[2020-09-03] MEDS: OLANZapine 5 MG TABLET PO SCH (20:54)
[2020-09-03] MEDS: ATORVASTATIN 20 MG TABLET PO SCH (20:55)
[2020-09-03] MEDS: SENNOSIDES/DOCUSATE SODIUM 1 TAB TABLET PO SCH (20:55)
[2020-09-04] MEDS: 0.9 % SODIUM CHLORIDE 1,000 ML IV SCH ×2 (00:37→15:47)
[2020-09-04] MEDS: metroNIDAZOLE 500 MG/100 ML BAG IV SCH ×3 (05:43→22:02)
[2020-09-04] MEDS: HYDROCORTISONE SOD SUCC 100 MG VIAL IV SCH ×2 (05:43→14:23)
[2020-09-04] MEDS: 0.9 % SODIUM CHLORIDE 10 ML SYRINGE IV SCH ×3 (05:44→22:11)
--- NOTE | 2020-09-04 06:31 | XRay Report ---
CLINICAL INFORMATION: SOB, PNA COMPARISON: 09/02/2020 FINDINGS: Heart size, mediastinum and pulmonary vessels are normal. Minimal airspace disease is developing in the lung bases. No effusions. Bones and soft tissues normal IMPRESSION: Minimal vague airspace disease in both lung bases which could indicate developing infiltrate or atelectasis. Interpreted and Authenticated by: Stefan Russo 09/04/20
[2020-09-04 07:08] LABS: Basophils # (Auto) 0.01 K/mcL (0.00-0.20); Basophils % (Auto) 0.1 % (0.0-2.0); Eosinophils # (Auto) 0 K/mcL (0.00-0.70); Eosinophils % (Auto) 0 % (0.0-7.0); Hematocrit 34.2 % (41.0-55.0); Hemoglobin 12.4 g/dL (13.5-16.5); Lymphocytes # (Auto) 0.75 K/mcL (1.50-4.80); Lymphocytes % (Auto) 9.6 % (15.0-49.0); Mean Cell Volume 87.5 fL (80.0-100.0); Mean Corpuscular HGB Conc 36.3 g/dL (31.0-36.0); Mean Platelet Volume 10.6 fL (7.4-10.4); Monocytes # (Auto) 1.17 K/mcL (0.10-0.90); Neutrophils % (Auto) 75.3 % (38.0-78.0); Platelet Count 202 K/mcL (140-440); RBC 3.91 M/mcL (4.50-5.90); Red Cell Distribution Width 13.5 % (11.5-14.5); WBC 7.8 K/mcL (4.5-11.0)
[2020-09-04] MEDS: MIDODRINE 5 MG TABLET PO SCH ×3 (07:28→16:50)
[2020-09-04] MEDS: LEVOTHYROXINE 100 MCG TABLET PO SCH (07:28)
[2020-09-04] MEDS: PANTOPRAZOLE 40 MG TABLET PO SCH (07:28)
[2020-09-04] MEDS: INSULIN LISPRO 1 UNIT/0.01 ML UNIT SQ SCH ×4 (07:29→22:02)
[2020-09-04 07:43] LABS: ALT/SGPT 56 U/L (<40); AST/SGOT 25 U/L (<40); Albumin 3.3 gm/dL (3.2-5.2); Albumin/Globulin Ratio 1.5 (1.0-2.3); Alkaline Phosphatase 66 U/L (39-117); Bilirubin,Direct < 0.2 mg/dL (0-0.3); Bilirubin,Total < 0.2 mg/dL (0.1-1.0); Blood Urea Nitrogen 11 mg/dL (6-20); Calcium 8.7 mg/dL (8.6-10.4); Carbon Dioxide 22 mmol/L (22-30); Chloride 104 mmol/L (96-108); Globulin 2.2 gm/dL (2.2-3.7); Glomerular Filtration Rate 108; Glucose 89 mg/dL (70-105); Lactate Dehydrogenase 172 U/L (135-225); Phosphorous 3.8 mg/dL (2.5-4.5); Triglycerides 69 mg/dL (<150); Uric Acid 2.5 mg/dL (2.5-8.0)
[2020-09-04] MEDS: ASPIRIN 81 MG TAB.CHEW PO SCH (08:57)
[2020-09-04] MEDS: sitaGLIPtin 100 MG TABLET PO SCH (08:57)
[2020-09-04] MEDS: DOCUSATE SODIUM 100 MG CAPSULE PO SCH ×2 (08:57→20:43)
[2020-09-04] MEDS: HEPARIN 5,000 UNIT/ML VIAL SQ SCH ×2 (08:57→22:03)
[2020-09-04] MEDS: NEUTRA PHOS 1 PACKET PO SCH ×2 (08:58→22:01)
[2020-09-04] MEDS: GABAPENTIN 400 MG CAPSULE PO SCH ×2 (08:58→22:01)
[2020-09-04] MEDS: MULTIVIT,THER IRON,CA,FA & MIN 1 TABLET PO SCH (08:58)
[2020-09-04] MEDS: CLOPIDOGREL 75 MG TABLET PO SCH (08:59)
[2020-09-04] MEDS: cefTRIAXone 2 GM in DEXTROSE 5% IN WATER 50 ML IV SCH (08:59)
[2020-09-04] MEDS: CYANOCOBALAMIN (VITAMIN B-12) 500 MCG TABLET PO SCH ×2 (09:00→22:01)
[2020-09-04] MEDS: AZITHROMYCIN 500 MG in DEXTROSE 5% IN WATER 250 ML IV SCH (09:03)
[2020-09-04] MEDS: FLUDROCORTISONE 0.1 MG TABLET PO SCH (09:13)
[2020-09-04] MEDS: INSULIN GLARGINE, HUMAN 1 UNIT/0.01 ML SQ SCH ×2 (09:13→22:03)
[2020-09-04] MEDS: POTASSIUM CHLORIDE 20 MEQ PACKET PO PRN (14:29)
--- NOTE | 2020-09-04 14:50 | Internal Med Progress Note ---
SUBJECTIVE Subjective Patient information: Note initiated : 09/04/20 at 2:47 pm Service Date, if different from initiated Date: [] Patient: Clovis Ureña 50 y/o M admitted on 09/02/20 for weakness, elevated blood sugar, low BP. Chief Complaint: [] Interval history: Mr. Ureña is a 50 year old with a known history of Adrenal insufficiency,diabetes/chronic diarrhea, recurrent DKA/CAD/HTN and neuropathy who presented to the ER with increasing weakness over the last week along with loss of appetite/increasing shortness of breath, cough and hemoptysis . Patient denies associated fever or shaking chills . His blood sugars have been very erratic ranging from 300-5 100s. He was seen at the PCP office and was referred to the ER with low blood pressure and hemoptysis evaluation. Initial work-up was consistent with multifocal chest infiltrates/distal colitis, elevated creatinine 1.3 . Patient started on antibiotic coverage after cultures were drawn. Hospitalist service was consulted for admission At the time of my evaluation patient is alert and oriented. He was able to answer most the question endorse history as above. He denies headache, photophobia, myalgia, rash, dysuria, hematuria. He denies sick contacts, denies URI symptoms or exposure to Covid patients. 09/03-blood sugars poorly controlled around mid 400. Increased Lantus to 40 twice daily/added sitagliptin/high sliding scale insulin. COVID-19 positive. Start dexamethasone. Currently on room air. No indication for remdesivir as yet. On antibiotic coverage. Cultures negative so far. Sodium 137, potassium 3.4 on replacement, creatinine 1.8, phosphorus 1.9, procalcitonin 0.13 09/04-patient doing well. No overnight events. Currently on room air. Systolic stable. Blood sugars improved on increased dose of Lantus. Potassium at 3 on replacement. Maintaining COVID-19 precautions. No other concerns per nursing staff. Ongoing potassium replacement as indicated Constitutional Vitals: Vital Signs Temp Pulse Resp BP Pulse Ox 97.1 F 76 16 99/63 98 09/04/20 14:00 09/04/20 14:00 09/04/20 14:00 09/04/20 14:00 09/04/20 14:00 Period Temp Pulse Resp BP Sys/Hernandez Pulse Ox Last 24 Hr 96.0 F-99.6 F 63-80 16-18 83-99/52-63 94-98 Intake and Output 09/04/20 09/04/20 09/04/20 05:59 13:59 21:59 Intake Total 1180 900 Output Total 1000 800 Balance 180 900 -800 Alert oriented Nonlabored breathing Nondistended abdomen No anxiety Intake & Output: Intake & Output 09/04/20 09/04/20 09/04/20 05:59 13:59 21:59 Intake Total 1180 900 Output Total 1000 800 Balance 180 900 -800 Intake: IV 100 100 Oral 1080 800 Output: Void Amount 650 300 Urine/Stool Mix 250 Stool 100 500 Other: Meal Lunch Dinner Percent of Meal Consumed 100% 100% Feeding Ability Independent Independent Urine Color Dark Yellow Stool Size Moderate Stool Color Brown Stool Consistency Liquid Liquid Loose # Bowel Movements 1 3 OBJ DATA Labs CBC & Chem 7: 09/05/20 05:42 09/05/20 05:42 Labs: Abnormal Lab Results 09/04/20 09/04/20 09/03/20 06:04 06:04 15:14 RBC 3.91 L Hgb 12.4 L Hct 34.2 L MCHC 36.3 H MPV 10.6 H Lymph % (Auto) 9.6 L [place] % (Auto) 15.0 H Lymph # (Auto) 0.75 L [place] # (Auto) 1.17 H Sodium Potassium 3.0 L Carbon Dioxide Anion Gap Creatinine Glucose 310 H Calcium Phosphorus AST ALT 56 H Total Protein 5.5 L Procalcitonin Urine Appearance Urine Protein Urine Glucose (UA) Urine Ketones Calcium Oxalate Crystal Granular Casts Urine Mucus 09/03/20 09/03/20 09/02/20 05:20 05:20 21:16 RBC 3.82 L Hgb 11.9 L Hct 33.8 L MCHC MPV 10.5 H Lymph % (Auto) 13.3 L [place] % (Auto) 15.3 H Lymph # (Auto) 0.61 L [place] # (Auto) Sodium Potassium Carbon Dioxide Anion Gap 7.0 L Creatinine Glucose 289 H Calcium 8.4 L Phosphorus 1.9 L AST ALT 73 H Total Protein 5.8 L Procalcitonin 0.13 H Urine Appearance Urine Protein Urine Glucose (UA) Urine Ketones Calcium Oxalate Crystal Granular Casts Urine Mucus 09/02/20 09/02/20 09/02/20 16:20 16:19 16:17 RBC Hgb Hct MCHC MPV 10.7 H Lymph % (Auto) [place] % (Auto) 14.8 H Lymph # (Auto) 1.02 L [place] # (Auto) Sodium 132 L Potassium Carbon Dioxide 21 L Anion Gap Creatinine 1.3 H Glucose 345 H Calcium Phosphorus AST 87 H ALT 135 H Total Protein Procalcitonin Urine Appearance Hazy A Urine Protein 100 A Urine Glucose (UA) >=500 A Urine Ketones 80 A Calcium Oxalate Crystal Few A Granular Casts 8 H Urine Mucus Few A Meds: Medications Acetaminophen (Acetaminophen 325 Mg Tablet) 650 mg PO Q4-6HP PRN; Protocol PRN Reason: Per Pain Protocol/Fever > 101 Aspirin (Aspirin 81 Mg Tab.Chew) 81 mg PO DAILY [facility] Last Admin: 09/04/20 08:57 Dose: 81 mg Documented by: Atorvastatin Calcium (Atorvastatin 20 Mg Tablet) 20 mg PO HS [facility] Last Admin: 09/03/20 20:55 Dose: 20 mg Documented by: Bisacodyl (Bisacodyl 10 Mg Supp.Rect) 10 mg MA Q2-3DAYS PRN PRN Reason: Constipation Clopidogrel Bisulfate (Clopidogrel 75 Mg Tablet) 75 mg PO QDAY [facility] Last Admin: 09/04/20 08:59 Dose: 75 mg Documented by: Cyanocobalamin (Cyanocobalamin (Vitamin B-12) 500 Mcg Tablet) 1,000 mcg PO BID [facility] Stop: 09/07/20 09:01 Last Admin: 09/04/20 09:00 Dose: 1,000 mcg Documented by: Dextrose (Dextrose 50% 50 Ml Vial) 0 ml IV UD PRN PRN Reason: Hypoglycemia Diagnostic Test (Pha) (Accu-Chek 1 Each Strip) 1 each FS ACHS [facility] Last Admin: 09/04/20 11:28 Dose: 1 each Documented by: Docusate Sodium (Docusate Sodium 100 Mg Capsule) 100 mg PO BID [facility] Last Admin: 09/04/20 08:57 Dose: Not Given Documented by: Fludrocortisone Acetate (Fludrocortisone 0.1 Mg Tablet) 0.1 mg PO QDAY [facility] Last Admin: 09/04/20 09:13 Dose: 0.1 mg Documented by: Gabapentin (Gabapentin 400 Mg Capsule) 400 mg PO BID [facility] Last Admin: 09/04/20 08:58 Dose: 400 mg Documented by: Glucose (Dextrose 31 Gm Oral.Susp) 15 gm PO PRN PRN PRN Reason: Hypoglycemia Heparin Sodium (Porcine) (Heparin 5,000 Unit/Ml Vial) 5,000 unit SQ Q12 [facility] Last Admin: 09/04/20 08:57 Dose: 5,000 unit Documented by: Hydrocortisone Sodium Succinate (Hydrocortisone Sod Succ 100 Mg Vial) 50 mg IV Q8 [facility] Last Admin: 09/04/20 14:23 Dose: 50 mg Documented by: Potassium Chloride 40 meq/ (Dextrose) 520 mls @ 130 mls/hr IV UD PRN PRN Reason: K+ = or < 3.5 Acetaminophen (Ofirmev) 650 mg in 65 mls @ 130 mls/hr IV Q6HP PRN; Protocol PRN Reason: Per Pain Protocol/Fever > 101 Magnesium Sulfate (Magnesium Sulfate) 2 gm in 50 mls @ 50 mls/hr IV UD PRN PRN Reason: MG = or < 1.7 Sodium Chloride (Sodium Chloride 0.9%) 1,000 mls @ 50 mls/hr IV .Q20H [facility] Stop: 09/05/20 09:15 Last Admin: 09/04/20 00:37 Dose: 50 mls/hr Documented by: Metronidazole (Flagyl) 500 mg in 100 mls @ 100 mls/hr IV Q8H [facility]; Protocol Last Admin: 09/04/20 14:23 Dose: 100 mls/hr Documented by: Insulin Glargine (Insulin Glargine, Human 1 Unit/0.01 Ml) 40 unit SQ BID [facility] Last Admin: 09/04/20 09:13 Dose: 40 unit Documented by: Insulin Human Lispro (Insulin Lispro 1 Unit/0.01 Ml Unit) 0 unit SQ ACHS [facility]; Protocol Last Admin: 09/04/20 11:33 Dose: 15 units Documented by: Iron Carb/Multivit/Kress/Folic Acid (Multivit,Ther Iron,Ca,Fa & Min 1 Tablet) 1 tab PO DAILY [facility] Last Admin: 09/04/20 08:58 Dose: 1 tab Documented by: Levofloxacin (Levofloxacin 750 Mg Tablet) 750 mg PO DAILY [facility]; Protocol Levothyroxine Sodium (Levothyroxine 100 Mcg Tablet) 200 mcg PO ACB [facility] Last Admin: 09/04/20 07:28 Dose: 200 mcg Documented by: Melatonin (Melatonin 3 Mg Tablet) 3 mg PO HSP PRN PRN Reason: Insomnia Midodrine (Midodrine 5 Mg Tablet) 10 mg PO TID@0800,1200,1700 [facility] Last Admin: 09/04/20 12:33 Dose: 10 mg Documented by: Olanzapine (Olanzapine 5 Mg Tablet) 10 mg PO QHS [facility] Last Admin: 09/03/20 20:54 Dose: 10 mg Documented by: Ondansetron HCl (Ondansetron 4 Mg Odt Tablet) 4 mg SL Q4-6HP PRN; Protocol PRN Reason: Nausea And Vomiting Ondansetron HCl (Ondansetron 4 Mg/2 Ml Vial) 4 mg IV Q4-6HP PRN; Protocol PRN Reason: Nausea And Vomiting Pantoprazole Sodium (Pantoprazole 40 Mg Tablet) 40 mg PO QAMAC [facility] Last Admin: 09/04/20 07:28 Dose: 40 mg Documented by: Polyethylene Glycol (Polyethylene Glycol 3350 17 Gm Packet) 17 gm PO DAILYP PRN PRN Reason: Constipation Potassium Chloride (Potassium Chloride 20 Meq Packet) 40 meq PO DAILYP PRN PRN Reason: K+ < 3.5 Last Admin: 09/04/20 14:29 Dose: 40 meq Documented by: Potassium/Phosphorus/Sodium (Neutra Phos 1 Packet) 2 packet PO BID [facility] Last Admin: 09/04/20 08:58 Dose: 2 packet Documented by: Senna/Docusate Sodium (Sennosides/Docusate Sodium 1 Tab Tablet) 1 tab PO HS [facility] Last Admin: 09/03/20 20:55 Dose: Not Given Documented by: Sitagliptin Phosphate (Sitagliptin 100 Mg Tablet) 100 mg PO DAILY [facility] Last Admin: 09/04/20 08:57 Dose: 100 mg Documented by: Sodium Chloride (0.9 % Sodium Chloride 10 Ml Syringe) 10 ml IV Q8 [facility] Last Admin: 09/04/20 05:44 Dose: Not Given Documented by: A/P Narrative A/P Narrative: * COVID-19 pneumonia without hypoxia-clinical improvement noted on supportive treatment/COVID-19 precautions. Continue empiric Levaquin * Sigmoid colitis, tolerating diet. On Levaquin Flagyl, persistent diarrhea electrolyte losses * GUS-creatinine down from 1.3-> 0.8. Continue crystalloids * Low potassium and phosphorus on replacement as indicated, Secondary to diarrhea * pericardial effusion-ER physician discussed with cardiology at same dose of Dr. Armendariz. No indication for urgent pericardiocentesis. Echocardiogram trace anterior pericardial effusion without hemodynamic compromise * Weakness and deconditioning-continue aggressive PT OT * Poorly controlled DM type II blood sugars at goal on Lantus to 40 twice daily/high sliding scale/sitagliptin/CC diet * History of CAD continue aspirin/Plavix/statin * Adrenal insufficiency with orthostatic hypotension continue hydrocortisone/midodrine/fludrocortisone * Hypothyroid continue toxin * Prophylaxis Heparin Plan * Continue COVID-19 precautions * Electrolyte replacement as indicated * DC stress dose steroid * Pre-existing medical management conditions management as above * PT OT nutrition support * Possible discharge in 24 hours Time Spent With Patient Time: Total time spent is greater than 50% in coordination of care (as documented) at patient's floor/unit and/or counseling patient:
[2020-09-04] MEDS ORDERED: POTASSIUM CHLORIDE 20 MEQ PACKET PO ONE ×2 (18:25→22:03)
[2020-09-04] MEDS: SENNOSIDES/DOCUSATE SODIUM 1 TAB TABLET PO SCH (20:43)
[2020-09-04] MEDS: OLANZapine 5 MG TABLET PO SCH (22:00)
[2020-09-04] MEDS: ATORVASTATIN 20 MG TABLET PO SCH (22:00)
[2020-09-05] MEDS: metroNIDAZOLE 500 MG/100 ML BAG IV SCH ×2 (05:40→13:49)
[2020-09-05] MEDS: 0.9 % SODIUM CHLORIDE 10 ML SYRINGE IV SCH ×2 (05:41→15:24)
[2020-09-05] MEDS: INSULIN LISPRO 1 UNIT/0.01 ML UNIT SQ SCH ×2 (07:18→11:15)
[2020-09-05] MEDS: PANTOPRAZOLE 40 MG TABLET PO SCH (07:28)
[2020-09-05] MEDS: MIDODRINE 5 MG TABLET PO SCH ×2 (07:29→11:51)
[2020-09-05] MEDS: LEVOTHYROXINE 100 MCG TABLET PO SCH (07:29)
[2020-09-05 07:33] LABS: Basophils # (Auto) 0.02 K/mcL (0.00-0.20); Basophils % (Auto) 0.3 % (0.0-2.0); Eosinophils # (Auto) 0.01 K/mcL (0.00-0.70); Eosinophils % (Auto) 0.1 % (0.0-7.0); Hematocrit 33.5 % (41.0-55.0); Lymphocytes # (Auto) 1.97 K/mcL (1.50-4.80); Lymphocytes % (Auto) 26.8 % (15.0-49.0); Mean Cell Volume 87.9 fL (80.0-100.0); Mean Corpuscular HGB Conc 35.8 g/dL (31.0-36.0); Mean Platelet Volume 11.1 fL (7.4-10.4); Monocytes # (Auto) 1.21 K/mcL (0.10-0.90); Monocytes % (Auto) 16.5 % (1.0-12.0); Neutrophils % (Auto) 56.3 % (38.0-78.0); Platelet Count 244 K/mcL (140-440); RBC 3.81 M/mcL (4.50-5.90); Red Cell Distribution Width 13.6 % (11.5-14.5); WBC 7.4 K/mcL (4.5-11.0)
[2020-09-05 07:35] LABS: ALT/SGPT 46 U/L (<40); AST/SGOT 29 U/L (<40); Albumin 3.1 gm/dL (3.2-5.2); Albumin/Globulin Ratio 1.6 (1.0-2.3); Alkaline Phosphatase 62 U/L (39-117); Bilirubin,Direct < 0.2 mg/dL (0-0.3); Bilirubin,Total < 0.2 mg/dL (0.1-1.0); Blood Urea Nitrogen 7 mg/dL (6-20); Calcium 8.6 mg/dL (8.6-10.4); Carbon Dioxide 24 mmol/L (22-30); Chloride 106 mmol/L (96-108); Globulin 1.9 gm/dL (2.2-3.7); Glomerular Filtration Rate 102; Glucose 52 mg/dL (70-105); Lactate Dehydrogenase 194 U/L (135-225); Phosphorous 3.3 mg/dL (2.5-4.5); Triglycerides 98 mg/dL (<150); Uric Acid 2.3 mg/dL (2.5-8.0)
[2020-09-05] MEDS: sitaGLIPtin 100 MG TABLET PO SCH (08:17)
[2020-09-05] MEDS: CYANOCOBALAMIN (VITAMIN B-12) 500 MCG TABLET PO SCH (08:18)
[2020-09-05] MEDS: GABAPENTIN 400 MG CAPSULE PO SCH (08:18)
[2020-09-05] MEDS: MULTIVIT,THER IRON,CA,FA & MIN 1 TABLET PO SCH (08:19)
[2020-09-05] MEDS: CLOPIDOGREL 75 MG TABLET PO SCH (08:20)
[2020-09-05] MEDS: ASPIRIN 81 MG TAB.CHEW PO SCH (08:20)
[2020-09-05] MEDS: HEPARIN 5,000 UNIT/ML VIAL SQ SCH (08:20)
[2020-09-05] MEDS: POTASSIUM CHLORIDE 20 MEQ PACKET PO PRN (08:20)
[2020-09-05] MEDS: NEUTRA PHOS 1 PACKET PO SCH (08:21)
[2020-09-05] MEDS: DOCUSATE SODIUM 100 MG CAPSULE PO SCH (08:21)
[2020-09-05] MEDS ORDERED: LEVOFLOXACIN 750 MG TABLET PO SCH (09:00)
[2020-09-05] MEDS: INSULIN GLARGINE, HUMAN 1 UNIT/0.01 ML SQ SCH (09:27)
[2020-09-05] MEDS: FLUDROCORTISONE 0.1 MG TABLET PO SCH (09:27)
--- NOTE | 2020-09-05 11:39 | Discharge Summary ---
Discharge Provider Provider Patient information: Note initiated : 09/05/20 at 11:36 am Service Date, if different from initiated Date: [] Patient: Clovis Ureña 50 y/o M admitted on 09/02/20 for weakness, elevated blood sugar, low BP. Discharge diagnosis * COVID-19 pneumonia without hypoxia-clinical clinically resolved with supportive treatment/maintain COVID-19 precautions for additional 5 days. Continue empiric Levaquin * Sigmoid colitis, clinically improved on antibiotic coverage. Improving diarrhea,tolerating diet. Continue Levaquin Flagyl for additional 5 days * GUS-creatinine down from 1.3-> 0.8. Resolved * Low potassium and phosphorus resolved with replacement hello * Pericardial effusion-ER physician discussed with cardiology, no indication for urgent pericardiocentesis. Echocardiogram trace anterior pericardial effusion. Follow-up with cardiology as outpatient * Weakness and deconditioning-patient doing a lot better. Managed with daily PT OT. Able to ambulate without assistance * DM type II -now improved control on Lantus to 40 twice daily/high sliding scale/sitagliptin/CC diet * History of CAD continue aspirin/Plavix/statin * Adrenal insufficiency with orthostatic hypotension continue hydrocortisone/midodrine/fludrocortisone * Hypothyroid continue thyroxine Brief hospital course Mr. Ureña is a 50 year old with a known history of Adrenal insufficiency,diabetes/chronic diarrhea, recurrent DKA/CAD/HTN and neuropathy who presented to the ER with increasing weakness over the last week along with loss of appetite/increasing shortness of breath, cough and hemoptysis . Patient denies associated fever or shaking chills . His blood sugars have been very erratic ranging from 300-5 100s. He was seen at the PCP office and was referred to the ER with low blood pressure and hemoptysis evaluation. Initial work-up was consistent with multifocal chest infiltrates/distal colitis, elevated creatinine 1.3 . Patient started on antibiotic coverage after cultures were drawn. Hospitalist service was consulted for admission At the time of my evaluation patient is alert and oriented. He was able to answer most the question endorse history as above. He denies headache, photophobia, myalgia, rash, dysuria, hematuria. He denies sick contacts, denies URI symptoms or exposure to Covid patients. 09/03-blood sugars poorly controlled around mid 400. Increased Lantus to 40 twice daily/added sitagliptin/high sliding scale insulin. COVID-19 positive. Start dexamethasone. Currently on room air. No indication for remdesivir as yet. On antibiotic coverage. Cultures negative so far. Sodium 137, potassium 3.4 on replacement, creatinine 1.8, phosphorus 1.9, procalcitonin 0.13 09/04-patient doing well. No overnight events. Currently on room air. Systolic stable. Blood sugars improved on increased dose of Lantus. Potassium at 3 on replacement. Maintaining COVID-19 precautions. No other concerns per nursing staff. 09/05-patient doing well. No overnight events. Currently on room air. Improved blood sugar control. Discharging with advised to continue antibiotic additional 5 days. Continue potassium replacement Date of admission: 09/02/20 21:05 Discharge date: 09/05/20 Primary care physician: Ken Ni MD Consults: 09/02/20 Consult to Physician [CONS] Stat Comment: Consulting Provider: Malcom Gray Reason For Exam: Physician to Consult Discharge Meds Discharge Medications Home Medications aspirin 81 mg PO QDAY 03/04/20 [History Confirmed 09/02/20 Last Taken 06/23/20] cholecalciferol (vitamin D3) [Vitamin D3] 50 mcg PO QDAY 03/04/20 [History Confirmed 09/02/20 Last Taken 06/23/20] blood-glucose meter [Blood Glucose Monitoring] 03/05/20 [History Confirmed 09/02/20 Last Taken Unknown] clopidogrel 75 mg tablet 75 mg PO QDAY #30 tab 04/15/20 [Rx Confirmed 09/02/20 Last Taken 06/23/20] gabapentin 400 mg capsule 400 mg PO BID #60 cap 04/15/20 [Rx Confirmed 09/02/20 Last Taken 06/23/20] potassium chloride 10 mEq capsule,extended release 10 meq PO QDAY #30 cap 04/15/20 [Rx Confirmed 09/02/20 Last Taken Unknown] ibuprofen 200 mg tablet 400 mg PO TID tab 05/21/20 [History Confirmed 09/02/20 Last Taken 06/23/20] gabapentin 800 mg PO QHS 06/25/20 [History Confirmed 09/02/20 Last Taken 06/23/20] insulin lispro [Humalog U-100 Insulin] 1 sliding scale dose SUB-Q USEASDIRECTD #30 ml 06/26/20 [Rx Confirmed 09/02/20 Last Taken Unknown] blood pressure monitor #1 each 07/01/20 [Rx Confirmed 09/02/20 Last Taken Unknown] fludrocortisone 0.1 mg tablet 0.1 mg PO QDAY #90 tab 07/01/20 [Rx Confirmed 09/02/20 Last Taken Unknown] levothyroxine 200 mcg capsule 200 mcg PO QDAY #90 cap 07/01/20 [Rx Confirmed 09/02/20 Last Taken Unknown] blood sugar diagnostic #100 ea 07/23/20 [Rx Confirmed 09/02/20 Last Taken Unknown] olanzapine 5 mg tablet 10 mg PO QHS #90 tab 07/24/20 [Rx Confirmed 09/02/20 Last Taken Unknown] pravastatin 80 mg tablet 80 mg PO QHS #30 tab 08/05/20 [Rx Confirmed 09/02/20 Last Taken Unknown] glucagon HCl 1 mg solution for injection 1 mg SUBCUT Q20M PRN #1 ea 08/19/20 [Rx Confirmed 09/02/20 Last Taken Unknown] insulin glargine 100 unit/mL subcutaneous solution 30 unit SUBCUT QPM #10 ml 08/19/20 [Rx Confirmed 09/02/20 Last Taken Unknown] insulin glargine 100 unit/mL subcutaneous solution 35 unit SUBCUT QAM #10 ml 08/19/20 [Rx Confirmed 09/02/20 Last Taken Unknown] insulin lispro 100 unit/mL subcutaneous solution 7 unit SUBCUT TID #10 ml 08/19/20 [Rx Confirmed 09/02/20 Last Taken Unknown] insulin syr/ndl U100 half ida 0.3 mL 30 gauge x 5/16" #100 ea 08/19/20 [Rx Conf irmed 09/02/20 Last Taken Unknown] midodrine 10 mg tablet 10 mg PO TID #270 tab 08/19/20 [Rx Confirmed 09/02/20 Last Taken Unknown] insulin glargine [Lantus U-100 Insulin] 40 unit SUBCUT BID #10 ml 09/05/20 [Rx Last Taken Unknown] levofloxacin 750 mg PO DAILY #5 tab 09/05/20 [Rx Last Taken Unknown] metronidazole [Flagyl] 500 mg PO Q8H #15 tab 09/05/20 [Rx Last Taken Unknown] COURSE Hospital Course Hospital course: . Discharge diagnosis: . Time Spent with Patient Time attestation: Total time spent providing and/or coordinating discharge services: EXAM Constitutional Vitals: Temp Pulse Resp BP Pulse Ox 99.9 F H 87 18 97/62 97 09/05/20 11:23 09/05/20 11:23 09/05/20 11:23 09/05/20 11:23 09/05/20 11:23 Discharge Data Data Completed and Pending Labs on day of discharge: Labs from last 24 hours 09/05/20 09/05/20 05:42 05:42 WBC 7.4 RBC 3.81 L Hgb 12.0 L Hct 33.5 L MCV 87.9 MCH 31.5 MCHC 35.8 RDW 13.6 Plt Count 244 MPV 11.1 H Neut % (Auto) 56.3 Lymph % (Auto) 26.8 [place] % (Auto) 16.5 H Eos % (Auto) 0.1 Baso % (Auto) 0.3 Lymph # (Auto) 1.97 [place] # (Auto) 1.21 H Eos # (Auto) 0.01 Baso # (Auto) 0.02 Absolute Neutrophils 4.14 Sodium 139 Potassium 3.0 L Chloride 106 Carbon Dioxide 24 Anion Gap 9.0 BUN 7 Creatinine 0.8 GFR Calculation 102 Glucose 52 L Uric Acid 2.3 L Calcium 8.6 Phosphorus 3.3 Magnesium 2.0 Total Bilirubin < 0.2 Direct Bilirubin < 0.2 GGT 25 AST 29 ALT 46 H Alkaline Phosphatase 62 Lactate Dehydrogenase 194 Total Protein 5.0 L Albumin 3.1 L Globulin 1.9 L Albumin/Globulin Ratio 1.6 Triglycerides 98 Preliminary micro results at discharge 09/02/20 16:43 Blood Culture - Preliminary Blood 09/02/20 16:09 Blood Culture - Preliminary Blood Discharge Plan Patient/Caregiver Discharge Instructions Activity: increase activity as tolerated Diet: Consistent Carbohydrate Activity Restrictions/Additional Instructions: Continue Lantus 40 twice daily Daily potassium Continue antibiotic for 5 days Follow-up PCP in 5 to 7 days Follow-up cardiology in 2 weeks Prescriptions: New Lantus U-100 Insulin 100 unit/mL Solution 40 unit subcut BID Qty: 10 RF: 0 levofloxacin 750 mg Tablet 750 mg PO DAILY Qty: 5 RF: 0 metronidazole [Flagyl] 500 mg tablet 500 mg PO Q8H Qty: 15 RF: 0 Continued (DME) Blood Glucose Test Strip See Rx Instructions .ROUTE .MEDSUPPLY Qty: 100 RF: 9 olanzapine 5 mg tablet 10 mg PO QHS Qty: 90 RF: 0 clopidogrel [Plavix] 75 mg tablet 75 mg PO QDAY Qty: 30 RF: 6 potassium chloride 10 mEq capsule, extended release 10 meq PO QDAY Qty: 30 RF: 6 gabapentin 400 mg capsule 400 mg PO BID Qty: 60 RF: 6 ibuprofen 200 mg tablet 400 mg PO TID RF: 0 fludrocortisone 0.1 mg tablet 0.1 mg PO QDAY Qty: 90 RF: 3 levothyroxine 200 mcg capsule 200 mcg PO QDAY Qty: 90 RF: 3 (DME) blood pressure monitor [Blood Pressure Kit] Kit See Rx Instructions .ROUTE .MEDSUPPLY Qty: 1 RF: 0 pravastatin 80 mg tablet 80 mg PO QHS Qty: 30 RF: 6 midodrine 10 mg tablet 10 mg PO TID Qty: 270 RF: 3 Lantus U-100 Insulin 100 unit/mL solution 35 unit subcut QAM Qty: 10 RF: 3 Lantus U-100 Insulin 100 unit/mL solution 30 unit subcut QPM Qty: 10 RF: 3 insulin lispro [Humalog U-100 Insulin] 100 unit/mL solution 7 unit subcut TID Qty: 10 RF: 12 Glucagon (HCl) Emergency Kit 1 mg recon soln 1 mg subcut Q20M PRN (Reason: hypoglycemia) Qty: 1 RF: 12 (DME) insulin syr/ndl U100 half ida 0.3 mL 30 gauge x 5/16" syringe See Rx Instructions .ROUTE .MEDSUPPLY Qty: 100 RF: 12 aspirin 81 mg Tablet,Delayed Release (Dr/Ec) 81 mg PO QDAY RF: 0 cholecalciferol (vitamin D3) [Vitamin D3] 50 mcg (2,000 unit) Capsule 50 mcg PO QDAY RF: 0 (DME) blood-glucose meter [Blood Glucose Monitoring] Kit MISCELLANEOUS RF: 0 gabapentin 800 mg Tablet 800 mg PO QHS RF: 0 insulin lispro [Humalog U-100 Insulin] 100 unit/mL solution 1 sliding scale dose SUB-Q USEASDIRECTD Qty: 30 RF: 6 Follow Up Plan Follow up with: Ken Ni MD [Primary Care Provider] - Patient Disposition: Home, Self-Care Prognosis: Fair Rehab Potential: Fair I certify that the patient requires SNF services: No Overall status at discharge: patient is progressing back to baseline Discharge Orders: Discharge Order (Routine); Ordered 09/05/20 Ordered By: Malcom Gray
== END 2020-09-05 16:10 | disposition home or self-care (01) | DRG 177 ==
LOC: ED 15:18 → OBSVTOIN 21:05 → MEDSUR 21:05 → INTOOBSV 21:05 → MEDSUR 21:10
PROVIDERS: ADMIT Internal Medicine; ATTEND Internal Medicine